=== PATIENT | female | born 1955 | race African-American/Black ===

== ENCOUNTER 2018-04-21 07:55 | Emergency (ER) | payer OTHER ==
[~2018-04-21] VITALS: Ht 157.5 cm; Wt 54.4 kg
[2018-04-21] MEDS ORDERED: IPRATROPIUM BROM 0.5 MG/2.5ML INH SOL NEB ONE (08:15)
[2018-04-21] MEDS ORDERED: methylPREDNISolone SOD SUCC 125 MG/2 ML VL IM ONE (08:15)
[2018-04-21] MEDS ORDERED: ALBUTEROL SULF 2.5 MG/0.5ML(0.5%) NEB SOLN NEB ONE (08:15)
[2018-04-21 08:35] LABS: Basophils # (auto) 0.1 uL; Basophils % (auto) 1.2 % (0.0-2.0); Eosinophils # (auto) 0.8 uL; Eosinophils % (auto) 14.5 % (0.0-7.0); Hemoglobin 14.5 g/dL (12.2-16.2); Lymphocytes # (auto) 1.6 uL; Lymphocytes % (auto) 29.8 % (10.0-50.0); Mean Corpuscular Hemoglobin 30.4 pg (28.0-32.0); Mean Corpuscular Hgb Conc. 32.9 g/dL (32.0-36.0); Mean Corpuscular Volume 92.4 fL (80.0-100.0); Monocytes # (auto) 0.6 uL; Monocytes % (auto) 11.2 % (0.0-12.0); Neutrophils # (auto) 2.3 uL; Neutrophils % (auto) 43.3 % (37.0-80.0); Platelet Count (auto) 309 10^3/uL (140-450); Red Blood Cells 4.76 10^6/uL (4.0-5.20); Red Cell Distribution Width 14.1 % (11.8-14.3); White Blood Cell 5.3 10^3/uL (4.4-10.8)
[2018-04-21 08:48] LABS: Albumin 3.3 g/dL (3.4-5.0); Anion Gap 8 (5-15); BUN/Creatinine Ratio 14.3; Blood Urea Nitrogen 11 mg/dL (7-18); Calcium 8.6 mg/dL (8.5-10.1); Carbon Dioxide 27 mmol/L (21-32); Chloride 109 mmol/L (98-107); GFR African American 97 mL/min; GFR Non-African American 80 mL/min; Glucose 89 mg/dL (74-106); Potassium 4.7 mmol/L (3.5-5.1); Sodium 144 mmol/L (136-145)
[2018-04-21 08:53] LABS: Alanine Aminotransferase 25 U/L (13-56); Alkaline Phosphatase 88 U/L (45-117); Aspartate Aminotransferase 20 U/L (15-37); Bilirubin, Total 0.1 mg/dL (0.2-1.0); Total Protein 7.5 g/dL (6.4-8.2)
[2018-04-21 10:06] LABS: Urine Bacteria NONE SEEN /hpf (None Seen); Urine Blood Negative /uL (Negative); Urine WBC <1 /hpf (0 - 5)
[2018-04-21 10:22] VITALS: BP 144/103
[2018-04-21] MEDS ORDERED: cefTRIAXone SOD 1,000 MG VL IM ONE (10:45)
[2018-04-21] MEDS ORDERED: cefTRIAXone W LIDOCAINE 1 GM IM IM ONE (11:00)
== END 2018-04-21 12:02 | disposition home or self-care (01) ==
LOC: ER 07:57
DX: J45.901 Unspecified asthma with (acute) exacerbation (principal); I10 Essential (primary) hypertension
CPT/HCPCS: 36415; 71045; 80053; 81001; 83880; 84484; 85025; 94640; 94761; 96372; 99285; J0696; J2930

== ENCOUNTER 2018-06-01 05:33 | Inpatient (IN) | payer OTHER ==
[~2018-06-01] VITALS: Ht 154.9 cm; Wt 55.5 kg
[2018-06-01] MEDS ORDERED: SODIUM CHLORIDE 0.9% 1,000 ML IV ONE (07:14)
[2018-06-01] MEDS ORDERED: LORazepam 0.5 MG TAB PO ONE (07:15)
[2018-06-01] MEDS ORDERED: ALBUTEROL SULF 2.5 MG/0.5ML(0.5%) NEB SOLN NEB ONE ×2 (07:15→12:30)
[2018-06-01] MEDS ORDERED: IPRATROPIUM BROM 0.5 MG/2.5ML INH SOL NEB ONE ×2 (07:15→12:30)
[2018-06-01 08:32] LABS: Basophils # (auto) 0.1 uL; Basophils % (auto) 1.1 % (0.0-2.0); Eosinophils # (auto) 0.6 uL; Eosinophils % (auto) 9.9 % (0.0-7.0); Hemoglobin 15.7 g/dL (12.2-16.2); Lymphocytes # (auto) 1.7 uL; Lymphocytes % (auto) 27.3 % (10.0-50.0); Mean Corpuscular Hemoglobin 30.1 pg (28.0-32.0); Mean Corpuscular Hgb Conc. 31.9 g/dL (32.0-36.0); Mean Corpuscular Volume 94.3 fL (80.0-100.0); Monocytes # (auto) 0.5 uL; Monocytes % (auto) 8.1 % (0.0-12.0); Neutrophils # (auto) 3.3 uL; Neutrophils % (auto) 53.6 % (37.0-80.0); Nucleated Red Blood Cells % 0.1 %; Platelet Count (auto) 266 10^3/uL (140-450); Red Cell Distribution Width 14.4 % (11.8-14.3); White Blood Cell 6.1 10^3/uL (4.4-10.8)
[2018-06-01 08:49] LABS: Albumin 3.6 g/dL (3.4-5.0); BUN/Creatinine Ratio 17.9; Bilirubin, Total 0.2 mg/dL (0.2-1.0); Calcium 8.4 mg/dL (8.5-10.1); Magnesium 2.5 mg/dL (1.6-2.6); Potassium 4.5 mmol/L (3.5-5.1); Total Protein 8.3 g/dL (6.4-8.2)
[2018-06-01] MEDS ORDERED: ACETAMINOPHEN 325 MG TAB PO ONE (12:30)
[2018-06-01] MEDS ORDERED: IBUPROFEN 600 MG TAB PO ONE (12:45)
[2018-06-01] MEDS ORDERED: ONDANSETRON HCL 4 MG/2 ML VIAL IV ONE (13:15)
[2018-06-01] MEDS ORDERED: ONDANSETRON ODT 4 MG TAB PO ONE (13:30)
[2018-06-01] MEDS ORDERED: NITROGLYCERIN 0.4 MG SL TAB SL PRN (14:00)
[2018-06-01] MEDS ORDERED: ACETAMINOPHEN 500 MG TAB PO PRN (14:00)
[2018-06-01] MEDS ORDERED: TEMAZEPAM 15 MG CAP PO PRN (14:00)
[2018-06-01] MEDS ORDERED: ALBUTEROL SULF 2.5 MG/0.5ML(0.5%) NEB SOLN NEB PRN (14:00)
[2018-06-01] MEDS ORDERED: MORPHINE SULF INJ 2 MG/ML SYRINGE 1ML IV PRN (14:00)
[2018-06-01] MEDS ORDERED: LACTULOSE 20Gm/30ML SOLN PO PRN (14:00)
[2018-06-01] MEDS: SODIUM CHLORIDE 0.9% 1,000 ML IV SCH (14:24)
[2018-06-01] MEDS: DOXYCYCLINE 100MG/250ML 250 ML IV SCH ×2 (14:32→21:42)
[2018-06-01] MEDS: PANTOPRAZOLE 40 MG TAB PO SCH (14:32)
[2018-06-01 16:18] VITALS: BP 107/77
[2018-06-01 16:35] VITALS: BP 107/77
[2018-06-01] MEDS: methylPREDNISolone SOD SUCC 40 MG/ML VL IV SCH ×2 (18:17→23:34)
[2018-06-01] MEDS: LORazepam 0.5 MG TAB PO PRN (18:18)
[2018-06-01] MEDS: ALBUTEROL SULF 2.5 MG/0.5ML(0.5%) NEB SOLN NEB SCH (18:43)
[2018-06-01] MEDS: IPRATROPIUM BROM 0.5 MG/2.5ML INH SOL NEB SCH (18:43)
[2018-06-01 20:00] VITALS: BP 109/70
[2018-06-01 22:00] VITALS: BP 109/70
[2018-06-01] MEDS: PROMETHAZINE HCL 25 MG/ML 1ML IV PRN (23:52)
[2018-06-02] VITALS (8 sets, daily range): BP systolic 104–115; BP diastolic 56–75
[2018-06-02] MEDS: LORazepam 0.5 MG TAB PO PRN ×3 (00:17→22:10)
[2018-06-02] MEDS: IPRATROPIUM BROM 0.5 MG/2.5ML INH SOL NEB SCH ×4 (00:19→18:25)
[2018-06-02] MEDS: ALBUTEROL SULF 2.5 MG/0.5ML(0.5%) NEB SOLN NEB SCH ×4 (00:19→18:25)
[2018-06-02] MEDS: SODIUM CHLORIDE 0.9% 1,000 ML IV SCH (05:07)
[2018-06-02] MEDS: methylPREDNISolone SOD SUCC 40 MG/ML VL IV SCH ×4 (06:50→21:58)
[2018-06-02] MEDS: DOXYCYCLINE 100MG/250ML 250 ML IV SCH ×2 (11:07→21:58)
[2018-06-02] MEDS: PANTOPRAZOLE 40 MG TAB PO SCH (11:07)
[2018-06-02] MEDS: ENOXAPARIN SOD 40 MG/0.4 ML SYRINGE SC SCH (11:08)
[2018-06-02] MEDS: HYDROcodone-ACET 5/325MG TAB PO PRN ×2 (11:47→20:10)
[2018-06-02] MEDS ORDERED: ALBUTEROL SULF 2.5 MG/0.5ML(0.5%) NEB SOLN NEB PRN (12:30)
[2018-06-02] MEDS ORDERED: SODIUM CHLORIDE 0.9% 1,000 ML IV SCH (12:30)
[2018-06-02] MEDS ORDERED: IPRATROPIUM BROM 0.5 MG/2.5ML INH SOL NEB PRN (12:30)
[2018-06-02] MEDS ORDERED: IBUPROFEN 400 MG TAB PO PRN (12:45)
[2018-06-02] MEDS: PROMETHAZINE HCL 25 MG/ML 1ML IV PRN ×2 (13:42→20:11)
[2018-06-03] VITALS (7 sets, daily range): BP systolic 115–137; BP diastolic 75–87
[2018-06-03] MEDS: IPRATROPIUM BROM 0.5 MG/2.5ML INH SOL NEB SCH ×4 (00:30→19:26)
[2018-06-03] MEDS: ALBUTEROL SULF 2.5 MG/0.5ML(0.5%) NEB SOLN NEB SCH ×4 (00:30→19:26)
[2018-06-03] MEDS: MORPHINE SULFATE 4 MG/ML SYR/VIAL IV PRN ×3 (00:39→08:50)
[2018-06-03] MEDS: methylPREDNISolone SOD SUCC 40 MG/ML VL IV SCH ×2 (05:38→23:13)
[2018-06-03 08:53] LABS: Basophils # (auto) 0.1 uL; Basophils % (auto) 0.8 % (0.0-2.0); Eosinophils # (auto) 0 uL; Eosinophils % (auto) 0.1 % (0.0-7.0); Hematocrit 47.1 % (36.0-46.0); Hemoglobin 14.7 g/dL (12.2-16.2); Lymphocytes # (auto) 0.5 uL; Lymphocytes % (auto) 5.9 % (10.0-50.0); Mean Corpuscular Hemoglobin 29.4 pg (28.0-32.0); Mean Corpuscular Hgb Conc. 31.3 g/dL (32.0-36.0); Mean Corpuscular Volume 94.1 fL (80.0-100.0); Monocytes # (auto) 0.1 uL; Monocytes % (auto) 1.5 % (0.0-12.0); Neutrophils # (auto) 7.8 uL; Neutrophils % (auto) 91.7 % (37.0-80.0); Platelet Count (auto) 287 10^3/uL (140-450); Red Cell Distribution Width 14.5 % (11.8-14.3); White Blood Cell 8.6 10^3/uL (4.4-10.8)
[2018-06-03 09:10] LABS: BUN/Creatinine Ratio 18.8; Calcium 9.5 mg/dL (8.5-10.1)
[2018-06-03] MEDS: PROMETHAZINE HCL 25 MG/ML 1ML IV PRN ×2 (10:06→21:16)
[2018-06-03] MEDS: HYDROcodone-ACET 5/325MG TAB PO PRN ×2 (10:08→21:18)
[2018-06-03] MEDS: PANTOPRAZOLE 40 MG TAB PO SCH (10:10)
[2018-06-03] MEDS: ENOXAPARIN SOD 40 MG/0.4 ML SYRINGE SC SCH (10:11)
[2018-06-03] MEDS: DOXYCYCLINE 100MG/250ML 250 ML IV SCH ×2 (10:13→23:13)
[2018-06-03] MEDS ORDERED: KETOROLAC TROMETH 30 MG/ML 1ML VIAL IV PRN (11:00)
[2018-06-03] MEDS: LORazepam 0.5 MG TAB PO PRN ×2 (12:01→21:19)
[2018-06-03] MEDS ORDERED: ESCI10TA PO (16:44)
[2018-06-03] MEDS: QUEtiapine FUMARATE 25 MG TAB PO SCH (23:13)
[2018-06-04] MEDS: ALBUTEROL SULF 2.5 MG/0.5ML(0.5%) NEB SOLN NEB SCH ×4 (00:45→19:31)
[2018-06-04] MEDS: IPRATROPIUM BROM 0.5 MG/2.5ML INH SOL NEB SCH ×4 (00:46→19:31)
[2018-06-04 05:16] VITALS: BP 122/74
[2018-06-04] MEDS: QUEtiapine FUMARATE 25 MG TAB PO SCH ×2 (06:46→21:03)
[2018-06-04] MEDS: LORazepam 0.5 MG TAB PO PRN ×3 (08:48→22:09)
[2018-06-04] MEDS: PROMETHAZINE HCL 25 MG/ML 1ML IV PRN ×3 (08:48→21:04)
[2018-06-04] MEDS: HYDROcodone-ACET 5/325MG TAB PO PRN ×3 (08:49→21:04)
[2018-06-04 09:00] VITALS: BP 133/78
[2018-06-04] MEDS: DOXYCYCLINE 100MG/250ML 250 ML IV SCH ×2 (10:38→21:03)
[2018-06-04] MEDS: methylPREDNISolone SOD SUCC 40 MG/ML VL IV SCH (10:38)
[2018-06-04] MEDS: PANTOPRAZOLE 40 MG TAB PO SCH (10:39)
[2018-06-04] MEDS: ENOXAPARIN SOD 40 MG/0.4 ML SYRINGE SC SCH (10:39)
[2018-06-04 13:00] VITALS: BP 133/89
[2018-06-04 17:17] VITALS: BP 127/88
[2018-06-04 21:42] VITALS: BP 127/87
[2018-06-05] MEDS: ALBUTEROL SULF 2.5 MG/0.5ML(0.5%) NEB SOLN NEB SCH ×5 (00:56→23:22)
[2018-06-05] MEDS: IPRATROPIUM BROM 0.5 MG/2.5ML INH SOL NEB SCH ×5 (00:57→23:22)
[2018-06-05] MEDS: PROMETHAZINE HCL 25 MG/ML 1ML IV PRN ×5 (03:04→23:54)
[2018-06-05] MEDS: HYDROcodone-ACET 5/325MG TAB PO PRN ×4 (03:04→23:53)
[2018-06-05] MEDS: LORazepam 0.5 MG TAB PO PRN ×3 (04:22→23:53)
[2018-06-05 04:36] VITALS: BP 127/87
[2018-06-05 05:09] VITALS: BP 127/79
[2018-06-05] MEDS: QUEtiapine FUMARATE 25 MG TAB PO SCH ×2 (06:01→21:20)
[2018-06-05 08:55] VITALS: BP 122/69
[2018-06-05] MEDS: methylPREDNISolone SOD SUCC 40 MG/ML VL IV SCH ×2 (09:16→10:06)
[2018-06-05] MEDS: ENOXAPARIN SOD 40 MG/0.4 ML SYRINGE SC SCH (09:16)
[2018-06-05] MEDS: DOXYCYCLINE 100MG/250ML 250 ML IV SCH ×2 (09:17→10:06)
[2018-06-05] MEDS: PANTOPRAZOLE 40 MG TAB PO SCH (09:17)
[2018-06-05 13:00] VITALS: BP 125/78
[2018-06-05 16:55] VITALS: BP 114/73
[2018-06-05 22:11] VITALS: BP 120/70
[2018-06-06 04:41] VITALS: BP 138/98
[2018-06-06 05:47] LABS: Basophils # (auto) 0 uL; Basophils % (auto) 0.6 % (0.0-2.0); Eosinophils # (auto) 0 uL; Eosinophils % (auto) 0.5 % (0.0-7.0); Hematocrit 40.3 % (36.0-46.0); Hemoglobin 13.1 g/dL (12.2-16.2); Lymphocytes # (auto) 2.2 uL; Lymphocytes % (auto) 28.3 % (10.0-50.0); Mean Corpuscular Hemoglobin 30.3 pg (28.0-32.0); Mean Corpuscular Hgb Conc. 32.6 g/dL (32.0-36.0); Monocytes # (auto) 0.7 uL; Monocytes % (auto) 8.7 % (0.0-12.0); Neutrophils # (auto) 4.9 uL; Neutrophils % (auto) 61.9 % (37.0-80.0); Nucleated Red Blood Cells % 0.2 %; Platelet Count (auto) 247 10^3/uL (140-450); Red Blood Cells 4.33 10^6/uL (4.0-5.20); Red Cell Distribution Width 13.8 % (11.8-14.3); White Blood Cell 7.8 10^3/uL (4.4-10.8)
[2018-06-06 06:06] LABS: BUN/Creatinine Ratio 25.9; Calcium 8.5 mg/dL (8.5-10.1); Potassium 3.8 mmol/L (3.5-5.1)
[2018-06-06] MEDS: QUEtiapine FUMARATE 25 MG TAB PO SCH (06:12)
[2018-06-06] MEDS: LORazepam 0.5 MG TAB PO PRN ×2 (06:12→12:19)
[2018-06-06] MEDS: HYDROcodone-ACET 5/325MG TAB PO PRN ×2 (06:13→12:19)
[2018-06-06] MEDS: PROMETHAZINE HCL 25 MG/ML 1ML IV PRN (06:13)
[2018-06-06] MEDS: ALBUTEROL SULF 2.5 MG/0.5ML(0.5%) NEB SOLN NEB SCH ×2 (06:31→12:36)
[2018-06-06] MEDS: IPRATROPIUM BROM 0.5 MG/2.5ML INH SOL NEB SCH ×2 (06:31→12:36)
[2018-06-06 07:50] VITALS: BP 123/84
[2018-06-06 09:00] VITALS: BP 123/84
[2018-06-06] MEDS: PANTOPRAZOLE 40 MG TAB PO SCH (09:44)
[2018-06-06] MEDS: ENOXAPARIN SOD 40 MG/0.4 ML SYRINGE SC SCH (09:44)
[2018-06-06] MEDS: methylPREDNISolone SOD SUCC 40 MG/ML VL IV SCH (09:44)
[2018-06-06] MEDS ORDERED: CITALOPRAM HYDROBR 20 MG TAB PO SCH (10:00)
[2018-06-06 13:00] VITALS: BP 125/91
[2018-06-06] MEDS ORDERED: LORA-655 PO (13:09)
[2018-06-06] MEDS ORDERED: METH4PAK PO (13:13)
[2018-06-06] MEDS ORDERED: QUET25TA46 PO ×2 (13:13)
[2018-06-06] MEDS ORDERED: ESCI10TA PO (13:13)
[2018-06-06] MEDS ORDERED: ALBUAER3 IN (13:13)
[2018-06-06] MEDS ORDERED: HYDR-4683 PO (13:13)
[2018-06-06] MEDS ORDERED: PRO625LQ PO (13:18)
[2018-06-06 16:30] VITALS: BP 117/74
[2018-06-06 17:00] VITALS: BP 117/74
== END 2018-06-06 17:25 | disposition home or self-care (01) | DRG 192 ==
LOC: EDUNIT# 05:33 → EDBD 05:33 → ER 05:39 → TELE 05:40 → TELE-WESTW 15:41
PROVIDERS: ADMIT Internal Medicine; ATTEND Internal Medicine
DX: J44.1 Chronic obstructive pulmonary disease with (acute) exacerbation (principal); F41.0 Panic disorder [episodic paroxysmal anxiety]; G89.4 Chronic pain syndrome; H40.9 Unspecified glaucoma; H54.8 Legal blindness, as defined in USA; I10 Essential (primary) hypertension; M12.811 Other specific arthropathies, not elsewhere classified, right shoulder; F32.9 Major depressive disorder, single episode, unspecified; Z87.891 Personal history of nicotine dependence; Z83.511 Family history of glaucoma
CPT/HCPCS: 36415; 71045; 71046; 73200; 80048; 80053; 80061; 82962; 83735; 84443; 85025; 85379; 85652; 93005; 93971; 94640; 96361; 96365; J1885; J2405; J3490; Q0162

== ENCOUNTER 2018-07-19 12:50 | Inpatient (IN) | payer OTHER ==
[~2018-07-19] VITALS: Ht 167.6 cm; Wt 59.2 kg
[~2018-07-19 12:50] MED LIST: ALBUAER3 IN; ESCI10TA PO; HYDR-4683 PO; LORA-655 PO; METH4PAK PO; PRO625LQ PO; QUET25TA46 PO
[2018-07-19] MEDS ORDERED: SODIUM CHLORIDE 0.9% 1,000 ML IVB ONE (15:33)
[2018-07-19] MEDS ORDERED: ASPirin 81 mg TAB PO ONE (15:45)
[2018-07-19] MEDS ORDERED: LORazepam 2MG/ML-1ML VIAL IV ONE ×2 (15:45→21:30)
[2018-07-19 15:59] LABS: Basophils # (auto) 0 uL; Basophils % (auto) 0.7 % (0.0-2.0); Eosinophils # (auto) 0.2 uL; Eosinophils % (auto) 3.5 % (0.0-7.0); Hematocrit 44.5 % (36.0-46.0); Hemoglobin 14.4 g/dL (12.2-16.2); Lymphocytes # (auto) 1.6 uL; Lymphocytes % (auto) 28.2 % (10.0-50.0); Mean Corpuscular Hemoglobin 29.4 pg (28.0-32.0); Mean Corpuscular Hgb Conc. 32.3 g/dL (32.0-36.0); Monocytes # (auto) 0.6 uL; Monocytes % (auto) 10.7 % (0.0-12.0); Neutrophils # (auto) 3.2 uL; Neutrophils % (auto) 56.9 % (37.0-80.0); Nucleated Red Blood Cells % 0.1 %; Platelet Count (auto) 237 10^3/uL (140-450); Red Blood Cells 4.89 10^6/uL (4.0-5.20); Red Cell Distribution Width 14.4 % (11.8-14.3); White Blood Cell 5.6 10^3/uL (4.4-10.8)
[2018-07-19 16:26] LABS: INR 0.97 (0.9-1.15); Partial Thromboplastin Time 26.1 sec (23.78-33.04); Prothrombin Time 10.4 sec (9.27-12.13)
[2018-07-19 16:28] LABS: Alanine Aminotransferase 21 U/L (13-56); Albumin 3.5 g/dL (3.4-5.0); Alkaline Phosphatase 103 U/L (45-117); Anion Gap 8 (5-15); Aspartate Aminotransferase 17 U/L (15-37); BUN/Creatinine Ratio 27.4; Bilirubin, Total 0.3 mg/dL (0.2-1.0); Blood Urea Nitrogen 17 mg/dL (7-18); Calcium 8.5 mg/dL (8.5-10.1); Carbon Dioxide 22 mmol/L (21-32); Chloride 112 mmol/L (98-107); GFR African American 124 mL/min; GFR Non-African American 103 mL/min; Glucose 80 mg/dL (74-106); Magnesium 2.4 mg/dL (1.6-2.6); Potassium 3.4 mmol/L (3.5-5.1); Sodium 142 mmol/L (136-145); Total Protein 7.7 g/dL (6.4-8.2)
[2018-07-19] MEDS ORDERED: METOPROLOL TARTRATE 50 MG TAB PO ONE (16:45)
[2018-07-19] MEDS ORDERED: ACETAMINOPHEN 500 MG TAB PO PRN (22:00)
[2018-07-19] MEDS ORDERED: DOCUSATE SOD 100 MG CAP PO PRN (22:00)
[2018-07-19] MEDS ORDERED: diphenhdrAMINE HCL 50 MG/1 ML VL IV PRN (22:00)
[2018-07-19] MEDS ORDERED: QUEtiapine FUMARATE 100 MG TAB PO ONE (22:00)
[2018-07-19] MEDS ORDERED: LORazepam 0.5 MG TAB PO PRN (22:00)
[2018-07-19] MEDS ORDERED: POTASSIUM CHL 20 Meq TABLET PO ONE (22:00)
[2018-07-19] MEDS ORDERED: ALBUTEROL SULF 2.5 MG/0.5ML(0.5%) NEB SOLN NEB PRN (23:15)
[2018-07-19 23:21] VITALS: BP 139/66
[2018-07-20 00:15] VITALS: BP 123/74
[2018-07-20 05:00] VITALS: BP 122/90
[2018-07-20 07:12] LABS: Basophils # (auto) 0 uL; Basophils % (auto) 1.1 % (0.0-2.0); Eosinophils # (auto) 0.5 uL; Eosinophils % (auto) 12.5 % (0.0-7.0); Hematocrit 40.6 % (36.0-46.0); Hemoglobin 13.7 g/dL (12.2-16.2); Lymphocytes # (auto) 1.4 uL; Mean Corpuscular Hemoglobin 30.9 pg (28.0-32.0); Mean Corpuscular Hgb Conc. 33.8 g/dL (32.0-36.0); Mean Corpuscular Volume 91.5 fL (80.0-100.0); Monocytes # (auto) 0.4 uL; Monocytes % (auto) 10.4 % (0.0-12.0); Neutrophils # (auto) 1.8 uL; Nucleated Red Blood Cells % 0.2 %; Platelet Count (auto) 204 10^3/uL (140-450); Red Blood Cells 4.44 10^6/uL (4.0-5.20); Red Cell Distribution Width 14.5 % (11.8-14.3); White Blood Cell 4.2 10^3/uL (4.4-10.8)
[2018-07-20 07:29] LABS: Calcium 8.1 mg/dL (8.5-10.1); Potassium 3.6 mmol/L (3.5-5.1)
[2018-07-20 08:51] VITALS: BP 120/76
[2018-07-20] MEDS ORDERED: QUEtiapine FUMARATE 25 MG TAB PO SCH ×3 (10:00→22:00)
[2018-07-20] MEDS: MULTIPLE VITAMIN TAB PO SCH (10:38)
[2018-07-20] MEDS ORDERED: AMLO5TAB13 PO (12:02)
[2018-07-20] MEDS ORDERED: LISI-646 PO (12:02)
[2018-07-20] MEDS ORDERED: QUET25TA37 PO (12:04)
[2018-07-20] MEDS ORDERED: HYDROcodone-ACET 5/325MG TAB PO PRN (12:45)
[2018-07-20 12:57] VITALS: BP 100/72
[2018-07-20] MEDS: LORazepam 0.5 MG TAB PO PRN (13:21)
[2018-07-20] MEDS ORDERED: ALBUTEROL SULF 2.5 MG/0.5ML(0.5%) NEB SOLN NEB PRN (13:30)
[2018-07-20] MEDS ORDERED: IPRATROPIUM BROM 0.5 MG/2.5ML INH SOL NEB PRN (13:30)
[2018-07-20 16:23] LABS: Alcohol, Urine < 3.0 mg/dL (0-5); Amphetamine Screen, Urine NEGATIVE (NEGATIVE); Barbiturate Scree,Urine NEGATIVE (NEGATIVE); Benzodiazephine Screen, Urine NEGATIVE (NEGATIVE); Cannabinoid Screen, Urine NEGATIVE (NEGATIVE); Cocaine Screen, Urine NEGATIVE (NEGATIVE); Opiate Scree,Urine NEGATIVE (NEGATIVE); Phencyclidine Screen, Urine NEGATIVE (NEGATIVE)
[2018-07-20 16:48] VITALS: BP 100/63
[2018-07-20] MEDS: ONDANSETRON HCL 4 MG/2 ML VIAL IV PRN (20:06)
[2018-07-20 22:00] VITALS: BP 114/71
[2018-07-21] MEDS: LORazepam 0.5 MG TAB PO PRN ×2 (01:37→09:53)
[2018-07-21 05:00] VITALS: BP 115/79
[2018-07-21] MEDS: ONDANSETRON HCL 4 MG/2 ML VIAL IV PRN (08:08)
[2018-07-21 09:00] VITALS: BP 120/86
[2018-07-21] MEDS: MULTIPLE VITAMIN TAB PO SCH (09:54)
[2018-07-21] MEDS ORDERED: LISINOPRIL 20 MG TAB PO SCH (10:00)
[2018-07-21] MEDS ORDERED: amLODIPine BESYLATE 5 MG TAB PO SCH (10:00)
[2018-07-21 11:42] VITALS: BP 120/86
[2018-07-21 13:00] VITALS: BP 115/79
== END 2018-07-21 14:00 | disposition home or self-care (01) | DRG 880 ==
LOC: ER 12:50 → EDBD 12:50 → TELE 12:51 → TELE-CENTR 23:34
PROVIDERS: ADMIT Nurse Practitioner Family; ATTEND Internal Medicine
DX: F41.0 Panic disorder [episodic paroxysmal anxiety] (principal); F32.9 Major depressive disorder, single episode, unspecified; E87.6 Hypokalemia; J44.9 Chronic obstructive pulmonary disease, unspecified; H54.8 Legal blindness, as defined in USA; I10 Essential (primary) hypertension; H40.9 Unspecified glaucoma; G89.29 Other chronic pain; F17.200 Nicotine dependence, unspecified, uncomplicated
CPT/HCPCS: 36415; 71045; 80048; 80053; 80307; 83735; 83880; 84443; 84484; 85025; 85610; 85730; 87081; 93005; 94761; 96361; 96374; 96375; J2405

== ENCOUNTER 2018-10-22 15:46 | Inpatient (IN) | payer MEDICARE, OTHER ==
[~2018-10-22] VITALS: Ht 152.4 cm; Wt 59.4 kg
[~2018-10-22 15:46] MED LIST changes: +AMLO5TAB13 PO; +LISI-646 PO; -METH4PAK PO; -PRO625LQ PO; +QUET25TA37 PO; -QUET25TA46 PO
[2018-10-22] MEDS ORDERED: IPRATROPIUM BROM 0.5 MG/2.5ML INH SOL NEB ONE (20:15)
[2018-10-22] MEDS ORDERED: ALBUTEROL SULF 2.5 MG/0.5ML(0.5%) NEB SOLN NEB ONE (20:15)
[2018-10-22] MEDS ORDERED: methylPREDNISolone SOD SUCC 125 MG/2 ML VL IV ONE (20:30)
[2018-10-22] MEDS ORDERED: cefTRIAXone 1GM/50ML D5W 50 ML IV ONE (20:45)
[2018-10-22 21:21] LABS: Basophils # (auto) 0 uL; Basophils % (auto) 0.6 % (0.0-2.0); Eosinophils # (auto) 0.4 uL; Eosinophils % (auto) 5.9 % (0.0-7.0); Hematocrit 47.6 % (36.0-46.0); Hemoglobin 15.5 g/dL (12.2-16.2); Lymphocytes # (auto) 2.6 uL; Lymphocytes % (auto) 39.9 % (10.0-50.0); Mean Corpuscular Hemoglobin 30.4 pg (28.0-32.0); Mean Corpuscular Hgb Conc. 32.7 g/dL (32.0-36.0); Mean Corpuscular Volume 92.9 fL (80.0-100.0); Monocytes # (auto) 0.7 uL; Monocytes % (auto) 10.8 % (0.0-12.0); Neutrophils # (auto) 2.7 uL; Neutrophils % (auto) 42.8 % (37.0-80.0); Nucleated Red Blood Cells % 0.2 %; Platelet Count (auto) 175 10^3/uL (140-450); Red Blood Cells 5.12 10^6/uL (4.0-5.20); Red Cell Distribution Width 14.5 % (11.8-14.3); White Blood Cell 6.4 10^3/uL (4.4-10.8)
[2018-10-22 21:42] LABS: Alanine Aminotransferase 14 U/L (13-56); Albumin 3.4 g/dL (3.4-5.0); Anion Gap 3 (5-15); Blood Urea Nitrogen 12 mg/dL (7-18); Calcium 8.1 mg/dL (8.5-10.1); Carbon Dioxide 28 mmol/L (21-32); Chloride 110 mmol/L (98-107); Glucose 96 mg/dL (74-106); Magnesium 2.4 mg/dL (1.6-2.6); Sodium 141 mmol/L (136-145)
[2018-10-22 21:47] LABS: Alkaline Phosphatase 88 U/L (45-117); Aspartate Aminotransferase 16 U/L (15-37); BUN/Creatinine Ratio 16.9; Bilirubin, Total 0.2 mg/dL (0.2-1.0); GFR African American 106 mL/min; GFR Non-African American 88 mL/min; Total Protein 7.5 g/dL (6.4-8.2)
[2018-10-22] MEDS: MAGNESIUM SULFATE 1GM/100ML 100 ML IV SCH ×2 (23:07→23:10)
[2018-10-22] MEDS ORDERED: ALBUTEROL SULF 2.5 MG/0.5ML(0.5%) NEB SOLN NEB PRN (23:15)
[2018-10-22] MEDS ORDERED: IPRATROPIUM BROM 0.5 MG/2.5ML INH SOL NEB PRN (23:15)
[2018-10-22] MEDS ORDERED: ACETAMINOPHEN 325 MG TAB PO PRN (23:15)
[2018-10-22 23:22] VITALS: BP 168/95
[2018-10-22 23:40] VITALS: BP 136/60
--- NOTE | 2018-10-22 23:40 | NUR ---
MS admit from ER KANDI VU admitted to tele/MS after SBAR received. Patient oriented to Leo coles RN, unit, room, bed, and unit policies regarding patient care and visiting hours. Patient weighed by bedscale and encouraged to call if they need something. All questions and concerns addressed, patient verbalized understanding.
[2018-10-23] MEDS: HYDROcodone-ACET 5/325MG TAB PO PRN ×5 (00:29→23:00)
[2018-10-23] MEDS: TEMAZEPAM 15 MG CAP PO PRN ×2 (01:00→23:31)
[2018-10-23 02:08] VITALS: BP 138/91
[2018-10-23 05:30] VITALS: BP 141/82
--- NOTE | 2018-10-23 07:30 | NUR ---
Opening Shift Note Assumed care of patient, awake and alert. No S/S of distress/SOB or pain; call light within reach, bed alarm on patient is legally blind. Instructed on POC and to call for assist PRN, will continue to monitor for changes Q1hr and PRN.
[2018-10-23 08:29] VITALS: BP 134/84
[2018-10-23] MEDS: amLODIPine BESYLATE 5 MG TAB PO SCH (09:04)
[2018-10-23] MEDS: LISINOPRIL 20 MG TAB PO SCH (09:05)
--- NOTE | 2018-10-23 09:18 | NUR ---
RT NOTE: WENT TO PTS ROOM TO ASSESS FOR PRN BREATHING TX. PT STATED THAT SHE DID NOT NEED A TX AT THIS TIME. PT AWARE TO CALL IF HAVING ANY SOB. HR 84, RR 18, SPO2 99% ON RA. WILL CONTINUE TO MONITOR PT.
--- NOTE | 2018-10-23 09:30 | NUR ---
RESTORIL INEFFECTIVE FOR A SLEEP AIDE PER PATIENT; PATIENT TAKES ATIVAN BID NEEDED AND AMBIEN FOR SLEEP.
[2018-10-23] MEDS ORDERED: FAMOTIDINE 20 MG TAB PO SCH (10:00)
--- NOTE | 2018-10-23 11:05 | NUR ---
AMBULATED PROVIDED MINIMAL ASSISTANCE WHILE PATIENT AMBULATED THE UNIT SEVERAL TIMES APPROXIMATELY 300 FEET; PATIENT TOLERATED WELL, DENIED DISCOMFORT OR PAIN; PATIENT REQUESTED A BREATHING TREATMENT. LEFT PATIENT IN BED WITH CALL LIGHT WITHIN REACH WILL CONTINUE TO MONITOR.
[2018-10-23 12:13] VITALS: BP 114/71
--- NOTE | 2018-10-23 16:16 | NUR ---
ASSISTED PATIENT TO THE BATHROOM PATIENT HAD A NORMAL MEDIUM BM WITHOUT DIFFICULTY.
[2018-10-23 16:32] VITALS: BP 142/91
--- NOTE | 2018-10-23 19:00 | NUR ---
Opening Shift Note Assumed care of patient, awake and alert. No S/S of distress/SOB or pain. Instructed on POC and to call for assist PRN, will continue to monitor for changes Q1hr and PRN.
[2018-10-23 22:00] VITALS: BP 122/76
[2018-10-23] MEDS ORDERED: QUEtiapine FUMARATE 25 MG TAB PO SCH (22:00)
[2018-10-23] MEDS: BUDESONIDE (INHALATION) 0.5 MG/2 ML NEB NEB SCH (22:00)
[2018-10-23] MEDS: ALBUTEROL SULF 2.5 MG/0.5ML(0.5%) NEB SOLN NEB SCH (22:22)
[2018-10-23] MEDS: IPRATROPIUM BROM 0.5 MG/2.5ML INH SOL NEB SCH (22:22)
[2018-10-23] MEDS: DOXYCYCLINE 100 MG TAB/CAP PO SCH (22:59)
[2018-10-23] MEDS: FAMOTIDINE 20 MG TAB PO SCH (23:00)
[2018-10-23] MEDS: predniSONE 20 MG TAB PO SCH (23:00)
[2018-10-24] MEDS: ONDANSETRON HCL 4 MG/2 ML VIAL IV PRN ×2 (04:38→10:12)
[2018-10-24] MEDS: HYDROcodone-ACET 5/325MG TAB PO PRN ×2 (04:38→09:55)
[2018-10-24 05:00] VITALS: BP 123/84
--- NOTE | 2018-10-24 06:01 | NUR ---
Per Pt She wants to continue with Ativan for anxiety. Will inform the day nurse
[2018-10-24] MEDS: BUDESONIDE (INHALATION) 0.5 MG/2 ML NEB NEB SCH (07:27)
[2018-10-24] MEDS: ALBUTEROL SULF 2.5 MG/0.5ML(0.5%) NEB SOLN NEB SCH (07:27)
[2018-10-24] MEDS: IPRATROPIUM BROM 0.5 MG/2.5ML INH SOL NEB SCH (07:27)
[2018-10-24 08:00] VITALS: BP 129/84
--- NOTE | 2018-10-24 09:30 | NUR ---
HOSPITALIST PAGED TO REVIEW AND REINSTATE PATIENTS HOME MEDICATIONS APPROPRIATE.
--- NOTE | 2018-10-24 09:45 | NUR ---
PRIMARY DOCTOR NOTIFIED ABDULKADIR GARCIA PATIENT REQUIRES ASSISTANCE OBTAINING A PRIMARY DOCTOR.
[2018-10-24] MEDS: DOXYCYCLINE 100 MG TAB/CAP PO SCH (09:54)
[2018-10-24] MEDS: amLODIPine BESYLATE 5 MG TAB PO SCH (09:55)
[2018-10-24] MEDS: predniSONE 20 MG TAB PO SCH (09:55)
[2018-10-24] MEDS: LISINOPRIL 20 MG TAB PO SCH (09:56)
[2018-10-24] MEDS: FAMOTIDINE 20 MG TAB PO SCH (10:00)
--- NOTE | 2018-10-24 10:48 | NUR ---
assessment Patient is a 63 year old female who is alert and oriented. Patients cognitive abilities are intact. Prior to admission patient lived home with family and functioned with assistance. Per patient she will return home to her prior living arrangements post discharge and family will transport her home. Patient informed me she has a paid caregiver. Patient informed me she has a white cane for home use. Patient is legally blind. I have provided patient with resource for [facility] caregiver. I informed patient she has a right to speak to a social welfare clerk regarding all care. I informed patient she has a right to participate in any and all discharge planning. Patient is aware of visiting hours on the hospital floor. I informed patient she has a right to privacy. Patient does not have a POA and advanced directive. I have offered patient information on POA and advanced directives. I informed the patient the advantages and benefits of having an Advanced Directive. Patient verbalized understanding and agreed to discharge plan home with family and caregiver. Addendum: 10/24/18 at 1048 by Keeley BOBO Amended: Links added.
[2018-10-24] MEDS ORDERED: LORazepam 0.5 MG TAB PO PRN (11:15)
--- NOTE | 2018-10-24 12:08 | NUR ---
NEW ORDER FOR ATIVAN PER DR Laura NULL.
[2018-10-24 12:16] VITALS: BP 159/89
--- NOTE | 2018-10-24 13:52 | NUR ---
re-assessment Per consult safety evaluation. Patient has been read a list of medicare providers. Per patient she has no preference on who provides service. MD order has been sent to [facility]. Per Shantell at [place] service will start within 48 hours of discharge. Call [phone] on discharge to let them know patient is discharged if after hours. Addendum: 10/24/18 at 1354 by Keeley Lamb Amended: Links added.
[2018-10-24 15:00] VITALS: BP 133/83
--- NOTE | 2018-10-24 17:18 | NUR ---
Discharge instructions given as ordered. Encourage to follow up with PMD as instructed; grace fermin provided resources for the patient to find a primary doctor;patient and daughter were educated to call and make an appointment with dr britt [phone] All questions and concerns addressed. Patient verbalized understanding. IV removed with catheter intact, pressure dressing applied Patient taken to vehicle via wheelchair with all personal belongings; daughter signed discharge paprework; accompanied by staff and family member. No distress noted at time of departure.
== END 2018-10-24 18:20 | disposition home or self-care (01) | DRG 191 ==
LOC: ER 15:46 → OVERFLOW 23:11 → EAST 23:40
PROVIDERS: ADMIT Nurse Practitioner; ATTEND Internal Medicine Pulmonary Disease
DX: J44.1 Chronic obstructive pulmonary disease with (acute) exacerbation (principal); J45.901 Unspecified asthma with (acute) exacerbation; F12.90 Cannabis use, unspecified, uncomplicated; F32.9 Major depressive disorder, single episode, unspecified; F17.210 Nicotine dependence, cigarettes, uncomplicated; I10 Essential (primary) hypertension; F41.9 Anxiety disorder, unspecified; M54.32 Sciatica, left side; Z82.5 Family history of asthma and other chronic lower respiratory diseases; Z91.19 Patient's noncompliance with other medical treatment and regimen; Z98.51 Tubal ligation status; Z83.3 Family history of diabetes mellitus; Z83.511 Family history of glaucoma; Z84.89 Family history of other specified conditions; Z80.0 Family history of malignant neoplasm of digestive organs; Z79.899 Other long term (current) drug therapy
CPT/HCPCS: 36415; 71046; 80053; 83735; 84484; 85025; 93005; 94640; 96365; 96375; G0378; J0696; J2405

== ENCOUNTER 2019-04-20 11:59 | Emergency (ER) | payer OTHER ==
[~2019-04-20] VITALS: Ht 154.9 cm; Wt 54.4 kg
[2019-04-20] MEDS ORDERED: LORazepam 2MG/ML-1ML VIAL IV ONE (12:30)
[2019-04-20 13:30] LABS: Basophils # (auto) 0.1 uL; Basophils % (auto) 1.1 % (0.0-2.0); Eosinophils # (auto) 0.1 uL; Eosinophils % (auto) 2.1 % (0.0-7.0); Hematocrit 44.7 % (36.0-46.0); Hemoglobin 14.7 g/dL (12.2-16.2); Lymphocytes # (auto) 1.5 uL; Lymphocytes % (auto) 29.1 % (10.0-50.0); Mean Corpuscular Hemoglobin 30.5 pg (28.0-32.0); Mean Corpuscular Hgb Conc. 32.9 g/dL (32.0-36.0); Mean Corpuscular Volume 92.8 fL (80.0-100.0); Monocytes # (auto) 0.5 uL; Monocytes % (auto) 9.2 % (0.0-12.0); Neutrophils # (auto) 3.1 uL; Neutrophils % (auto) 58.5 % (37.0-80.0); Nucleated Red Blood Cells % 0.1 %; Platelet Count (auto) 210 10^3/uL (140-450); Red Blood Cells 4.82 10^6/uL (4.0-5.20); Red Cell Distribution Width 14.9 % (11.8-14.3); White Blood Cell 5.2 10^3/uL (4.4-10.8)
[2019-04-20 13:48] LABS: Albumin 3.7 g/dL (3.4-5.0); Anion Gap 7 (5-15); Blood Urea Nitrogen 7 mg/dL (7-18); Calcium 9.2 mg/dL (8.5-10.1); Carbon Dioxide 24 mmol/L (21-32); Chloride 111 mmol/L (98-107); Glucose 87 mg/dL (74-106); Potassium 3.4 mmol/L (3.5-5.1); Sodium 142 mmol/L (136-145)
[2019-04-20 13:52] LABS: Alanine Aminotransferase 15 U/L (13-56); Alkaline Phosphatase 62 U/L (45-117); Aspartate Aminotransferase 16 U/L (15-37); BUN/Creatinine Ratio 11.5; Bilirubin, Total 0.3 mg/dL (0.2-1.0); GFR African American 127 mL/min; GFR Non-African American 105 mL/min; Total Protein 7.6 g/dL (6.4-8.2)
[2019-04-20 14:14] LABS: Alcohol, Urine < 3.0 mg/dL (0-5); Amphetamine Screen, Urine NEGATIVE (NEGATIVE); Barbiturate Scree,Urine NEGATIVE (NEGATIVE); Benzodiazephine Screen, Urine NEGATIVE (NEGATIVE); Cannabinoid Screen, Urine POSITIVE (NEGATIVE); Cocaine Screen, Urine NEGATIVE (NEGATIVE); Opiate Scree,Urine NEGATIVE (NEGATIVE); Phencyclidine Screen, Urine NEGATIVE (NEGATIVE)
[2019-04-20 15:00] VITALS: BP 115/67
--- NOTE | 2019-04-20 16:08 | NUR ---
Received referral to see pt. Pt is alert and oriented time 3. According to the nurse the pt is blind. However, pt lives in a hotel The pt states she has been there for 3 weeks. Her and her had a big fight and she left. Pt states she has panic attacks all the time. Pt does have an income of $1100.00. However, She states she likes where she is and does not want to move. She also has a service dog. Pt was given a resources list from [facility]. She stated she could have one of her neighbors help her out.
== END 2019-04-20 16:27 | disposition home or self-care (01) ==
LOC: ER 12:09
DX: F41.9 Anxiety disorder, unspecified (principal); R07.89 Other chest pain; R11.0 Nausea; F12.90 Cannabis use, unspecified, uncomplicated; J44.9 Chronic obstructive pulmonary disease, unspecified; I10 Essential (primary) hypertension; F32.9 Major depressive disorder, single episode, unspecified; F17.210 Nicotine dependence, cigarettes, uncomplicated; Z98.51 Tubal ligation status
CPT/HCPCS: 36415; 71045; 80053; 80307; 80320; 84484; 85025; 93005; 93971; 94761; 96374; 99284; J2060

== ENCOUNTER 2019-10-01 11:06 | Emergency (ER) | payer MEDICARE, OTHER ==
[~2019-10-01] VITALS: Ht 154.9 cm; Wt 51.7 kg
[~2019-10-01 11:06] MED LIST changes: -AMLO5TAB13 PO; +AMLO5TAB15 PO; -HYDR-4683 PO; +HYDR-4833 PO
[2019-10-01 16:27] VITALS: BP 139/85
== END 2019-10-01 16:39 | disposition home or self-care (01) ==
LOC: ER 11:17
DX: R51 Headache (principal); F41.9 Anxiety disorder, unspecified; R42 Dizziness and giddiness; F32.9 Major depressive disorder, single episode, unspecified; I10 Essential (primary) hypertension; J44.9 Chronic obstructive pulmonary disease, unspecified; F17.210 Nicotine dependence, cigarettes, uncomplicated; F12.10 Cannabis abuse, uncomplicated; Z98.51 Tubal ligation status
CPT/HCPCS: 70450; 93005

== ENCOUNTER 2019-11-20 17:31 | Inpatient (IN) | payer OTHER ==
[~2019-11-20] VITALS: Ht 154.9 cm; Wt 51.7 kg
[2019-11-20 18:54] LABS: Alanine Aminotransferase 22 U/L (13-56); Albumin 3.4 g/dL (3.4-5.0); Anion Gap 5 (5-15); Aspartate Aminotransferase 19 U/L (15-37); BUN/Creatinine Ratio 12.4; Blood Urea Nitrogen 11 mg/dL (7-18); Carbon Dioxide 27 mmol/L (21-32); Chloride 111 mmol/L (98-107); GFR African American 82 mL/min; GFR Non-African American 67 mL/min; Glucose 98 mg/dL (74-106); Potassium 3.4 mmol/L (3.5-5.1); Sodium 143 mmol/L (136-145)
[2019-11-20 18:59] LABS: Alkaline Phosphatase 87 U/L (45-117); Bilirubin, Total 0.2 mg/dL (0.2-1.0); Total Protein 7.9 g/dL (6.4-8.2)
[2019-11-20 19:27] LABS: Basophils # (auto) 0 uL; Basophils % (auto) 0.8 % (0.0-2.0); Eosinophils # (auto) 0.1 uL; Eosinophils % (auto) 1.5 % (0.0-7.0); Hematocrit 46.7 % (36.0-46.0); Hemoglobin 15.5 g/dL (12.2-16.2); Lymphocytes # (auto) 0.8 uL; Lymphocytes % (auto) 13.2 % (10.0-50.0); Mean Corpuscular Hemoglobin 30.7 pg (28.0-32.0); Mean Corpuscular Hgb Conc. 33.1 g/dL (32.0-36.0); Mean Corpuscular Volume 92.8 fL (80.0-100.0); Monocytes # (auto) 0.8 uL; Monocytes % (auto) 14.1 % (0.0-12.0); Neutrophils # (auto) 4.2 uL; Neutrophils % (auto) 70.4 % (37.0-80.0); Nucleated Red Blood Cells % 0.1 %; Platelet Count (auto) 283 10^3/uL (140-450); Red Blood Cells 5.03 10^6/uL (4.0-5.20); Red Cell Distribution Width 15.1 % (11.8-14.3)
[2019-11-20] MEDS ORDERED: ALBUTEROL SULF 2.5 MG/0.5ML(0.5%) NEB SOLN NEB ONE (21:30)
[2019-11-20] MEDS ORDERED: IPRATROPIUM BROM 0.5 MG/2.5ML INH SOL NEB ONE (21:30)
[2019-11-20] MEDS ORDERED: methylPREDNISolone SOD SUCC 125 MG/2 ML VL IV ONE (21:30)
[2019-11-20] MEDS ORDERED: cefTRIAXone 1GM/50ML D5W 50 ML IV ONE (21:30)
[2019-11-20] MEDS ORDERED: AZITHROMYCIN 500MG/ 250ML 250 ML IV ONE (21:30)
[2019-11-20] MEDS ORDERED: KETOROLAC TROMETH 60MG/2ML VIAL ONE (23:26)
[2019-11-20] MEDS ORDERED: KETOROLAC TROMETH 30 MG/ML 1ML VIAL IV ONE (23:30)
[2019-11-20] MEDS ORDERED: ONDANSETRON HCL 4 MG/2 ML VIAL IV ONE (23:30)
[2019-11-21] VITALS (7 sets, daily range): BP systolic 119–158; BP diastolic 75–97
[2019-11-21] MEDS ORDERED: IPRATROPIUM BROM 0.5 MG/2.5ML INH SOL NEB ONE (00:30)
[2019-11-21] MEDS ORDERED: ALBUTEROL SULF 2.5 MG/0.5ML(0.5%) NEB SOLN NEB ONE (00:30)
--- NOTE | 2019-11-21 01:25 | NUR ---
MS admit from ER KANDI VU admitted to tele/MS after SBAR received. Patient oriented to PHAM BORRERO RN primary RN, unit, room, bed, and unit policies regarding patient care and visiting hours. Patient weighed by bedscale and encouraged to call if they need something. All questions and concerns addressed, patient verbalized understanding. Note:
[2019-11-21] MEDS: IPRATROPIUM BROM 0.5 MG/2.5ML INH SOL NEB PRN ×2 (03:58→09:29)
[2019-11-21] MEDS: ALBUTEROL SULF 2.5 MG/0.5ML(0.5%) NEB SOLN NEB PRN ×3 (03:59→20:47)
[2019-11-21] MEDS: MORPHINE SULFATE 4 MG/ML SYR/VIAL IV PRN ×2 (04:04→09:14)
[2019-11-21 06:52] LABS: Basophils # (auto) 0 uL; Basophils % (auto) 0.3 % (0.0-2.0); Eosinophils # (auto) 0 uL; Hematocrit 42.4 % (36.0-46.0); Hemoglobin 14.2 g/dL (12.2-16.2); Lymphocytes # (auto) 0.4 uL; Lymphocytes % (auto) 9.7 % (10.0-50.0); Mean Corpuscular Hemoglobin 31.5 pg (28.0-32.0); Mean Corpuscular Hgb Conc. 33.5 g/dL (32.0-36.0); Mean Corpuscular Volume 93.8 fL (80.0-100.0); Monocytes # (auto) 0.1 uL; Monocytes % (auto) 1.8 % (0.0-12.0); Neutrophils # (auto) 3.9 uL; Neutrophils % (auto) 88.2 % (37.0-80.0); Platelet Count (auto) 255 10^3/uL (140-450); Red Blood Cells 4.52 10^6/uL (4.0-5.20); Red Cell Distribution Width 15.2 % (11.8-14.3); White Blood Cell 4.4 10^3/uL (4.4-10.8)
[2019-11-21 07:01] LABS: BUN/Creatinine Ratio 16.7; Calcium 9.2 mg/dL (8.5-10.1); Potassium 4.1 mmol/L (3.5-5.1)
[2019-11-21] MEDS: ENOXAPARIN SOD 40 MG/0.4 ML SYRINGE SC SCH (09:13)
[2019-11-21] MEDS ORDERED: AZITHROMYCIN 500MG/ 250ML 250 ML IV SCH (10:00)
[2019-11-21] MEDS ORDERED: methylPREDNISolone SOD SUCC 125 MG/2 ML VL IV SCH (10:00)
[2019-11-21] MEDS ORDERED: guaiFENesin-DM 100/10mg/5ml SYR PO PRN (13:00)
--- NOTE | 2019-11-21 13:30 | NUR ---
Hospitalist at bedside MD Mendez at bedside, spoke to patient extensively regarding POC including possible dc home tomorrow. Patient verbalized understanding and agrees to POC. Will cont care
[2019-11-21] MEDS: HYDROcodone-ACET 5/325MG TAB PO PRN (13:38)
[2019-11-21] MEDS: IPRATROPIUM BROM 0.5 MG/2.5ML INH SOL NEB SCH ×4 (14:29→22:00)
[2019-11-21] MEDS: ALBUTEROL SULF 2.5 MG/0.5ML(0.5%) NEB SOLN NEB SCH ×4 (14:30→22:00)
[2019-11-21] MEDS: DOXYCYCLINE 100MG/250ML 250 ML IV SCH (14:31)
[2019-11-21] MEDS: MORPHINE SULF INJ 2 MG/ML SYRINGE 1ML IV PRN (17:58)
--- NOTE | 2019-11-21 18:47 | NUR ---
Respiratory note: CPT NOT GIVEN WITH MED NEB TX AT THIS TIME. PT IS HAVING EXTREME ANXIETY AND CANNOT TOLERATE. WILL CONTINUE TO MONITOR.
--- NOTE | 2019-11-21 19:00 | NUR ---
Patient care endorsed endorsed care to Evert west. Patient states she's having anxiety attack. Patient received breathing treatment and R.T. recommending prn q2hr as well. MD Mendez paged to notify. VSS. Patient on 2L n/c. Call light within reach
--- NOTE | 2019-11-21 19:15 | NUR ---
Opening Shift Note Assumed care of patient, awake and alert. Patient is anxious and yelling out that she needs help. Able to calm the patient down. No S/S of distress/SOB. The patient c/o generalized body pain and request PRN pain medication. Instructed on POC and to call for assist PRN, will continue to monitor for changes Q1hr and PRN.
--- NOTE | 2019-11-21 19:35 | NUR ---
Dr. Valdez at nursing station. Notified Dr. Valdez about the patient's anxiety and wheezing. Received new orders for Xanax .25 mg Q8HR PRN and Albuterol 1.25 mg Q2HR.
[2019-11-21] MEDS ORDERED: cefTRIAXone 1GM/50ML D5W 50 ML IV SCH (22:00)
[2019-11-21] MEDS: QUEtiapine FUMARATE 25 MG TAB PO SCH (22:00)
[2019-11-22] MEDS: ALBUTEROL SULF 2.5 MG/0.5ML(0.5%) NEB SOLN NEB PRN (00:01)
[2019-11-22] MEDS: MORPHINE SULF INJ 2 MG/ML SYRINGE 1ML IV PRN ×2 (00:30→09:57)
[2019-11-22] MEDS: ONDANSETRON HCL 4 MG/2 ML VIAL IV PRN ×3 (00:30→22:17)
[2019-11-22] MEDS: methylPREDNISolone SOD SUCC 40 MG/ML VL IV SCH ×2 (00:34→09:57)
[2019-11-22] MEDS: ALPRAZolam 0.25 MG TAB PO PRN ×2 (01:57→08:51)
[2019-11-22] MEDS: DOXYCYCLINE 100MG/250ML 250 ML IV SCH ×2 (01:57→13:45)
[2019-11-22] MEDS: IPRATROPIUM BROM 0.5 MG/2.5ML INH SOL NEB SCH ×6 (02:24→22:30)
[2019-11-22] MEDS: ALBUTEROL SULF 2.5 MG/0.5ML(0.5%) NEB SOLN NEB SCH ×6 (02:24→22:30)
[2019-11-22] MEDS: HYDROcodone-ACET 5/325MG TAB PO PRN ×2 (03:00→08:51)
[2019-11-22 05:00] VITALS: BP 118/81
--- NOTE | 2019-11-22 06:05 | NUR ---
Respiratory note: PT REFUSED CPT AT THIS TIME.
--- NOTE | 2019-11-22 07:30 | NUR ---
OPENING SHIFT NOTE: Received report from NOC RNEvert. Assumed care of patient. Patient has been yelling out for help, appears very anxious and panicking. Patient constantly reassured. Bed in lowest position, rails x2 up and call light within reach. Updated on plan of care.
--- NOTE | 2019-11-22 08:30 | NUR ---
Patient moved from rm 215B to rm 203A to be closer to nurses' station due to blindness and panic attacks.
[2019-11-22 09:00] VITALS: BP 142/104
--- NOTE | 2019-11-22 09:50 | NUR ---
Respiratory note: PT HAS VERY HIGH ANXIETY AT THIS TIME. NO CPT DONE AT THIS TIME.
[2019-11-22] MEDS: ENOXAPARIN SOD 40 MG/0.4 ML SYRINGE SC SCH (09:57)
[2019-11-22] MEDS: amLODIPine BESYLATE 5 MG TAB PO SCH (09:58)
[2019-11-22] MEDS: LISINOPRIL 20 MG TAB PO SCH (09:58)
[2019-11-22] MEDS: CITALOPRAM HYDROBR 20 MG TAB PO SCH (09:59)
--- NOTE | 2019-11-22 10:00 | NUR ---
IV ACCESS: New IV started in right wrist #22 by LINDA Poe.
--- NOTE | 2019-11-22 12:59 | NUR ---
MD: Paged Dr Mandi Mendez regarding patient having a panic attack, yelling and pulling out IV. Unable to administer Xanax at this time. Patient's caregivers called to try and talk to her via phone and calm her down.
[2019-11-22 13:00] VITALS: BP 147/78
--- NOTE | 2019-11-22 13:11 | NUR ---
MD: Dr Mandi Mendez to see patient. Orders given.
--- NOTE | 2019-11-22 13:30 | NUR ---
TELE PSYCH: Machine at bedside.
--- NOTE | 2019-11-22 14:12 | NUR ---
RA O2 sats 77%. Patient placed back on 3L NC.
--- NOTE | 2019-11-22 16:55 | NUR ---
RECIEVED REPORT FROM LINDA MIRANDA. AWAITING FOR ROOM TO BE CLEANED
--- NOTE | 2019-11-22 16:55 | NUR ---
CONY MARTINEZ RE: PT CONTINUING TO PULL IV OUT. THIS RN REQUESTING TO CHANGE IV MEDICATION DOXYCYCLINE AND SOLU-MEDROL TO PO FORM AWAITING CALL BACK.
[2019-11-22 17:00] VITALS: BP 155/85
[2019-11-22] MEDS: ACETAMINOPHEN 325 MG TAB PO PRN (17:00)
--- NOTE | 2019-11-22 18:10 | NUR ---
PT TRANSFERRED TO 280-B NO S/S OF SOB AT THIS TIME. PT CURRENTLY COMPLANING OF EXTREME ANXIETY AND PAIN AT THIS TIME.
--- NOTE | 2019-11-22 18:16 | NUR ---
PT INSTRUCTED TO USE THE CALL LIGHT. FALL PRECAUTIONS IN PLACE. SIDERAILS UP X2, BED IN LOWEST POSITION AN LOCKED. CALL LIGHT WITHIN REACH .
--- NOTE | 2019-11-22 18:53 | NUR ---
MD Agnieszka MARTINEZ CALLED RE: PT TELE-PSYCH CONSULT. GAVE ORDER TO START PT ON ATIVAN 1MG PO Q8HRS PER PSYCHIATRIST ORDERS. ALSO STATED PT WILL MOST LIKELY BE READY TO BE DISCHARGED TOMORROW 11/23/2019
--- NOTE | 2019-11-22 18:55 | NUR ---
CAREGIVER UPDATED ON POC PASSWORD VERIFIED
--- NOTE | 2019-11-22 20:10 | NUR ---
Opening shift note Patient is sitting at edge of bed visibly anxious. Stating, "I want to leave now. I don't want to talk about it, I just want to go". Patient medicated with Ativan 1mg for anxiety as ordered. Patient laid down in bed and closed eyes. Patient is currently on 2L NC with noted expiratory wheezes. denies pain at this time. Reports nausea. Patient received from previous shift with no IV access; patient to be medicated for nausea once IV access is established. Patient educated on this, and verbalizes understanding. Patient is ambulatory with assist due to blindness. Bed is in low locked position with side rails up x2. Sitter is at bedside for safety. Bed is in low locked position with side rails up x2. Will continue to monitor for changes PRN.
[2019-11-22] MEDS: LORazepam 0.5 MG TAB PO PRN (20:21)
[2019-11-22] MEDS: QUEtiapine FUMARATE 25 MG TAB PO SCH (22:00)
[2019-11-22] MEDS: DOXYCYCLINE 100 MG TAB/CAP PO SCH (22:16)
--- NOTE | 2019-11-22 22:34 | NUR ---
MED NEB TX STOPPED EARLY DUE TO NAUSEA. CPT NOT ADMINISTERED AT THIS TIME. WILL CONTINUE WITH NEXT SCHEDULED TX IF TOLERATED.
--- NOTE | 2019-11-22 22:44 | NUR ---
Elevated BP BP is 154/111. Patient is resting with eyes closed. Denies headache or dizziness. Voicemail left for Dr. Agnieszka Mendez for further instruction. Awaiting call call back. Will continue care.
[2019-11-22] MEDS: hydrALAZINE HCL 20 MG/ML VL IV PRN (23:55)
--- NOTE | 2019-11-23 00:38 | NUR ---
Patient is anxious and yelling. States that none of her medications are working. Asking, "Please give me something to knock me out." Patient informed that no medications are due at this time. Instructed to take deep breaths and try to relax. Sitter is in room for safety. Will continue to monitor.
[2019-11-23] MEDS: ONDANSETRON HCL 4 MG/2 ML VIAL IV PRN ×3 (02:34→15:42)
[2019-11-23] MEDS: IPRATROPIUM BROM 0.5 MG/2.5ML INH SOL NEB SCH ×4 (02:36→15:04)
[2019-11-23] MEDS: ALBUTEROL SULF 2.5 MG/0.5ML(0.5%) NEB SOLN NEB SCH ×4 (02:36→15:04)
[2019-11-23 05:00] VITALS: BP 159/120
[2019-11-23] MEDS: hydrALAZINE HCL 20 MG/ML VL IV PRN ×2 (05:22→15:19)
[2019-11-23] MEDS: LORazepam 0.5 MG TAB PO PRN ×2 (05:22→15:41)
--- NOTE | 2019-11-23 05:26 | NUR ---
Elevated Blood pressure Blood pressure is 167/106. Medicated with Hydralazine 10mg IV as ordered. Will reassess.
[2019-11-23] MEDS: ACETAMINOPHEN 325 MG TAB PO PRN ×2 (06:22→15:37)
--- NOTE | 2019-11-23 07:30 | NUR ---
Opening Shift Note Assumed care of patient, asleep but easily aroused. No S/S of distress/SOB or pain. For safety patients bed is locked, in the lowest position, with 2 side rails up and the call light with in reach. There is a sitter at bedside to monitor for safety. Instructed on POC and to call for assist PRN, will continue to monitor for any changes in condition.
[2019-11-23 09:00] VITALS: BP 159/92
[2019-11-23] MEDS ORDERED: predniSONE 20 MG TAB PO SCH (10:00)
--- NOTE | 2019-11-23 10:00 | NUR ---
DAUGHTER PARISH HERE TO SEE HER MOM, HER CONTACT INFORMATION IS CELL PHONE, HOME PHONE, CELL PHONE #2.
[2019-11-23] MEDS: amLODIPine BESYLATE 5 MG TAB PO SCH (10:17)
[2019-11-23] MEDS: CITALOPRAM HYDROBR 20 MG TAB PO SCH (10:18)
[2019-11-23] MEDS: DOXYCYCLINE 100 MG TAB/CAP PO SCH (10:18)
[2019-11-23] MEDS: ENOXAPARIN SOD 40 MG/0.4 ML SYRINGE SC SCH (10:19)
[2019-11-23] MEDS: LISINOPRIL 20 MG TAB PO SCH (10:24)
[2019-11-23 12:58] VITALS: BP 158/94
--- NOTE | 2019-11-23 16:50 | NUR ---
DR. Mandi CESAR AT BEDSIDE WITH PATIENT TO DISCUSS PLAN OF CARE
[2019-11-23 17:00] VITALS: BP 137/85
[2019-11-23] MEDS ORDERED: DOX100T PO (17:10)
[2019-11-23] MEDS ORDERED: IPR002IS NEB (17:10)
[2019-11-23] MEDS ORDERED: ALB5IS NEB (17:10)
[2019-11-23] MEDS ORDERED: PRED20TA2 PO (17:10)
--- NOTE | 2019-11-23 18:45 | NUR ---
Discharge instructions given as ordered. Encourage to follow up with Primary care provider Dr. West as instructed. All questions and concerns addressed. Patient verbalized understanding. Medication reconciliation form completed and copy given to patient. IV removed with catheter intact, pressure dressing applied. Patient taken to vehicle via wheelchair with all personal belongings, accompanied by staff and friend Raquel. No distress noted at time of departure.
--- NOTE | 2019-11-27 11:19 | NUR ---
Faxed home health order to [facility], was told by Amara at [facility] that they could not accept this patient due to PCP being Dr. Cannon. I called [employer] [employer] and spoke with Leila, she said [facility] accepted patient and has already seen them.
== END 2019-11-23 18:45 | disposition home health service (06) | DRG 189 ==
LOC: ER 17:35 → OVERFLOW 17:36 → CENTRAL 11-21 01:10 → WEST WING 11-22 18:15
PROVIDERS: ADMIT Hospitalist; ATTEND Internal Medicine
DX: J96.01 Acute respiratory failure with hypoxia (principal); J44.1 Chronic obstructive pulmonary disease with (acute) exacerbation; J45.998 Other asthma; I10 Essential (primary) hypertension; E11.9 Type 2 diabetes mellitus without complications; F12.90 Cannabis use, unspecified, uncomplicated; F17.210 Nicotine dependence, cigarettes, uncomplicated; F32.9 Major depressive disorder, single episode, unspecified; F41.0 Panic disorder [episodic paroxysmal anxiety]; H40.9 Unspecified glaucoma; F43.22 Adjustment disorder with anxiety; H54.8 Legal blindness, as defined in USA; Z80.0 Family history of malignant neoplasm of digestive organs; Z82.5 Family history of asthma and other chronic lower respiratory diseases; Z83.3 Family history of diabetes mellitus; Z98.51 Tubal ligation status; Z71.6 Tobacco abuse counseling; Z79.899 Other long term (current) drug therapy
CPT/HCPCS: 36415; 71046; 80048; 80053; 84484; 85025; 87040; 94640; 94667; 94668; 96365; 96367; 96375; G0378; J0696; J1885; J2405; J3490

== ENCOUNTER 2020-05-02 11:22 | Emergency (ER) | payer OTHER ==
[~2020-05-02] VITALS: Ht 152.4 cm; Wt 54.4 kg
[~2020-05-02 11:22] MED LIST changes: +ALB5IS NEB; +DOX100T PO; +IPR002IS NEB; +PRED20TA2 PO
[2020-05-02 11:31] VITALS: BP 113/80
[2020-05-02] MEDS ORDERED: ONDANSETRON ODT 4 MG TAB PO ONE (17:30)
== END 2020-05-02 17:51 | disposition home or self-care (01) ==
LOC: ER 11:22
DX: F41.9 Anxiety disorder, unspecified (principal); J02.9 Acute pharyngitis, unspecified; J44.9 Chronic obstructive pulmonary disease, unspecified; I10 Essential (primary) hypertension; F17.210 Nicotine dependence, cigarettes, uncomplicated; Z98.51 Tubal ligation status
CPT/HCPCS: 71045; 87070; 87804; 87880; 99284; Q0162

== ENCOUNTER 2020-12-28 04:10 | Emergency (ER) | payer OTHER ==
[~2020-12-28] VITALS: Ht 162.6 cm; Wt 49.9 kg
[~2020-12-28 04:10] MED LIST changes: +AMLO-489 PO; -AMLO5TAB15 PO
[2020-12-28] MEDS ORDERED: SODIUM CHLORIDE 0.9% 1,000 ML IV ONE (07:15)
[2020-12-28 07:20] LABS: Basophils # (auto) 0 10 ^3/uL (0-0.2); Basophils % (auto) 0.8 % (0.0-2.0); Eosinophils # (auto) 0.1 10 ^3/uL (0-0.8); Eosinophils % (auto) 1.9 % (0.0-7.0); Hematocrit 42.5 % (36.0-46.0); Hemoglobin 13.8 g/dL (12.2-16.2); Lymphocytes # (auto) 0.9 10 ^3/uL (0.4-5.4); Lymphocytes % (auto) 21.2 % (10.0-50.0); Mean Corpuscular Hemoglobin 31.4 pg (28.0-32.0); Mean Corpuscular Hgb Conc. 32.5 g/dL (32.0-36.0); Mean Corpuscular Volume 96.6 fL (80.0-100.0); Monocytes # (auto) 0.4 10 ^3/uL (0-1.3); Monocytes % (auto) 9.7 % (0.0-12.0); Neutrophils # (auto) 2.9 10 ^3/uL (1.6-8.6); Neutrophils % (auto) 66.4 % (37.0-80.0); Nucleated Red Blood Cells % 0.1 %; Platelet Count (auto) 215 10^3/uL (140-450); Red Cell Distribution Width 15.9 % (11.8-14.3); White Blood Cell 4.4 10^3/uL (4.4-10.8)
[2020-12-28] MEDS ORDERED: LORazepam 0.5 MG TAB PO ONE (07:45)
[2020-12-28 07:48] LABS: Chloride 115 mmol/L (98-107); Potassium 3.4 mmol/L (3.5-5.1); Sodium 142 mmol/L (136-145)
[2020-12-28 07:50] LABS: INR 1.03 (0.9-1.15); Partial Thromboplastin Time 26.7 sec (23.0-31.2)
[2020-12-28 07:59] LABS: Alanine Aminotransferase 15 U/L (13-56); Albumin 3.2 g/dL (3.4-5.0); Alkaline Phosphatase 65 U/L (45-117); Anion Gap 5 (5-15); Aspartate Aminotransferase 16 U/L (15-37); Bilirubin, Total 0.2 mg/dL (0.2-1.0); Blood Urea Nitrogen 9 mg/dL (7-18); Calcium 8.4 mg/dL (8.5-10.1); Carbon Dioxide 22 mmol/L (21-32); GFR African American 99 mL/min; GFR Non-African American 82 mL/min; Glucose 118 mg/dL (74-106); Total Protein 7.1 g/dL (6.4-8.2)
[2020-12-28] MEDS ORDERED: ACETAMINOPHEN 500 MG TAB PO ONE (08:30)
[2020-12-28] MEDS ORDERED: IOPAMIDOL 76 % (ISOVUE-370) 100ML BTL IV ONE (09:00)
[2020-12-28 12:22] LABS: Urine Bacteria NONE SEEN /hpf (None Seen); Urine Blood Negative /uL (Negative); Urine Specific Gravity 1.035 (1.001-1.035); Urine WBC <1 /hpf (0 - 5)
[2020-12-28 13:40] VITALS: BP 117/65
== END 2020-12-28 13:58 | disposition home or self-care (01) ==
LOC: EDBD 04:10 → ER 04:10
DX: F32.9 Major depressive disorder, single episode, unspecified (principal); F41.9 Anxiety disorder, unspecified; E87.6 Hypokalemia; H54.7 Unspecified visual loss; F12.10 Cannabis abuse, uncomplicated; J44.9 Chronic obstructive pulmonary disease, unspecified; E44.1 Mild protein-calorie malnutrition; Z68.1 Body mass index [BMI] 19.9 or less, adult; Z20.822 Contact with and (suspected) exposure to COVID-19; Z87.891 Personal history of nicotine dependence; Z98.51 Tubal ligation status
CPT/HCPCS: 36415; 71045; 71275; 80053; 81001; 83735; 83880; 84484; 85025; 85379; 85610; 85730; 87426; 93005; 96360; 96361; 99285; C9803; J7030; Q9967; U0003

== ENCOUNTER 2021-01-19 19:56 | Inpatient (IN) | payer OTHER ==
[~2021-01-19] VITALS: Ht 157.5 cm; Wt 54.4 kg
[2021-01-19 22:38] LABS: Basophils # (auto) 0 10 ^3/uL (0-0.2); Basophils % (auto) 0.7 % (0.0-2.0); Eosinophils # (auto) 0 10 ^3/uL (0-0.8); Eosinophils % (auto) 0.6 % (0.0-7.0); Hemoglobin 16.4 g/dL (12.2-16.2); Lymphocytes # (auto) 1.2 10 ^3/uL (0.4-5.4); Lymphocytes % (auto) 19.9 % (10.0-50.0); Mean Corpuscular Hgb Conc. 33.5 g/dL (32.0-36.0); Mean Corpuscular Volume 92.7 fL (80.0-100.0); Monocytes # (auto) 0.5 10 ^3/uL (0-1.3); Monocytes % (auto) 9.1 % (0.0-12.0); Neutrophils # (auto) 4.1 10 ^3/uL (1.6-8.6); Neutrophils % (auto) 69.7 % (37.0-80.0); Nucleated Red Blood Cells % 0.2 %; Platelet Count (auto) 255 10^3/uL (140-450); Red Blood Cells 5.29 10^6/uL (4.0-5.20); Red Cell Distribution Width 14.8 % (11.8-14.3); White Blood Cell 5.9 10^3/uL (4.4-10.8)
[2021-01-19 22:49] LABS: Chloride 113 mmol/L (98-107); Potassium 3.3 mmol/L (3.5-5.1); Sodium 140 mmol/L (136-145)
[2021-01-19 22:50] LABS: INR 1.15 (0.9-1.15); Partial Thromboplastin Time 27.2 sec (23.0-31.2)
[2021-01-19 22:51] LABS: Acetaminophen < 2.0 ug/mL (10-30)
[2021-01-19 22:53] LABS: Alanine Aminotransferase 16 U/L (13-56); Anion Gap 9 (5-15); Aspartate Aminotransferase 21 U/L (15-37); BUN/Creatinine Ratio 21.8; Blood Alcohol < 3.0 mg/dL (0-5); Blood Urea Nitrogen 22 mg/dL (7-18); Calcium 8.9 mg/dL (8.5-10.1); Carbon Dioxide 18 mmol/L (21-32); GFR African American 70 mL/min; GFR Non-African American 58 mL/min; Glucose 125 mg/dL (74-106); Magnesium 2.5 mg/dL (1.6-2.6)
[2021-01-19 22:54] LABS: Salicylate 51.7 mg/dL (2.8-20.0)
[2021-01-19 22:58] LABS: Alkaline Phosphatase 79 U/L (45-117); Bilirubin, Total 0.3 mg/dL (0.2-1.0); Total Protein 8.2 g/dL (6.4-8.2)
[2021-01-20] MEDS ORDERED: ACETYLCYSTEINE ORAL for CIN 20%(200MG/ML) 4ML PO ONE (08:15)
[2021-01-20] MEDS ORDERED: SODIUM CHLORIDE 0.9% 1,000 ML IV ONE ×2 (08:15)
[2021-01-20] MEDS ORDERED: SODIUM BICARBONATE 8.4 % INJ 50ML VIAL IV ONE (08:15)
[2021-01-20] MEDS ORDERED: ONDANSETRON HCL 4 MG/2 ML VIAL IV ONE (08:15)
[2021-01-20] MEDS ORDERED: POTASSIUM EFFERVESENT TAB 25 MEQ PO ONE (09:00)
[2021-01-20] MEDS ORDERED: SODIUM BICARBONATE 50ML VIAL 50 ML, POTASSIUM CHLORIDE 20 MEQ in SOD CHL 0.45% 1,000 ML IV ONE (09:00)
[2021-01-20 10:06] LABS: Basophils # (auto) 0 10 ^3/uL (0-0.2); Basophils % (auto) 0.5 % (0.0-2.0); Eosinophils # (auto) 0 10 ^3/uL (0-0.8); Hematocrit 48.4 % (36.0-46.0); Hemoglobin 16.1 g/dL (12.2-16.2); Lymphocytes # (auto) 0.9 10 ^3/uL (0.4-5.4); Mean Corpuscular Hemoglobin 31.6 pg (28.0-32.0); Mean Corpuscular Hgb Conc. 33.2 g/dL (32.0-36.0); Mean Corpuscular Volume 95.3 fL (80.0-100.0); Monocytes # (auto) 0.3 10 ^3/uL (0-1.3); Monocytes % (auto) 6.2 % (0.0-12.0); Neutrophils # (auto) 4.2 10 ^3/uL (1.6-8.6); Neutrophils % (auto) 77.3 % (37.0-80.0); Nucleated Red Blood Cells % 0.2 %; Platelet Count (auto) 215 10^3/uL (140-450); Red Blood Cells 5.08 10^6/uL (4.0-5.20); Red Cell Distribution Width 15.2 % (11.8-14.3); White Blood Cell 5.4 10^3/uL (4.4-10.8)
[2021-01-20 10:38] LABS: Potassium 3.4 mmol/L (3.5-5.1)
[2021-01-20 10:43] LABS: Albumin 3.7 g/dL (3.4-5.0); BUN/Creatinine Ratio 29.4; Bilirubin, Total 0.2 mg/dL (0.2-1.0); Calcium 8.7 mg/dL (8.5-10.1); Total Protein 7.8 g/dL (6.4-8.2)
[2021-01-20] MEDS: MORPHINE SULF INJ 2 MG/ML SYRINGE 1ML IV PRN ×2 (13:23→21:55)
[2021-01-20 16:53] LABS: Albumin 3.3 g/dL (3.4-5.0); BUN/Creatinine Ratio 28.3; Potassium 3.6 mmol/L (3.5-5.1)
[2021-01-20 16:56] LABS: Bilirubin, Total 0.2 mg/dL (0.2-1.0); Total Protein 6.9 g/dL (6.4-8.2)
[2021-01-20] MEDS: SODIUM CHLORIDE 0.9% 1,000 ML IV SCH (18:21)
[2021-01-20] MEDS: ONDANSETRON HCL 4 MG/2 ML VIAL IV PRN (18:43)
[2021-01-20 22:47] LABS: Urine Bacteria FEW /hpf (None Seen); Urine Blood Negative /uL (Negative); Urine Mucus FEW (None Seen); Urine Specific Gravity 1.023 (1.001-1.035); Urine WBC 4 /hpf (0 - 5)
[2021-01-20 22:49] LABS: Alcohol, Urine < 3.0 mg/dL (0-10); Amphetamine Screen, Urine NEGATIVE (NEGATIVE); Barbiturate Scree,Urine NEGATIVE (NEGATIVE); Benzodiazephine Screen, Urine NEGATIVE (NEGATIVE); Cannabinoid Screen, Urine POSITIVE (NEGATIVE); Cocaine Screen, Urine NEGATIVE (NEGATIVE); Phencyclidine Screen, Urine NEGATIVE (NEGATIVE)
[2021-01-20 22:56] LABS: Opiate Scree,Urine POSITIVE (NEGATIVE)
[2021-01-20 23:50] LABS: Albumin 3.1 g/dL (3.4-5.0); BUN/Creatinine Ratio 26.2; Calcium 8.3 mg/dL (8.5-10.1); Potassium 3.6 mmol/L (3.5-5.1)
[2021-01-20 23:53] LABS: Bilirubin, Total 0.3 mg/dL (0.2-1.0); Total Protein 6.2 g/dL (6.4-8.2)
[2021-01-21] MEDS: ONDANSETRON HCL 4 MG/2 ML VIAL IV PRN ×2 (00:09→11:03)
[2021-01-21] MEDS: SODIUM CHLORIDE 0.9% 1,000 ML IV SCH (04:22)
[2021-01-21 07:34] LABS: Basophils # (auto) 0 10 ^3/uL (0-0.2); Basophils % (auto) 0.5 % (0.0-2.0); Eosinophils # (auto) 0 10 ^3/uL (0-0.8); Eosinophils % (auto) 0.2 % (0.0-7.0); Hematocrit 40.7 % (36.0-46.0); Hemoglobin 13.4 g/dL (12.2-16.2); Lymphocytes # (auto) 1.6 10 ^3/uL (0.4-5.4); Lymphocytes % (auto) 30.8 % (10.0-50.0); Mean Corpuscular Hemoglobin 30.8 pg (28.0-32.0); Mean Corpuscular Volume 93.3 fL (80.0-100.0); Monocytes # (auto) 0.5 10 ^3/uL (0-1.3); Monocytes % (auto) 9.9 % (0.0-12.0); Neutrophils % (auto) 58.6 % (37.0-80.0); Nucleated Red Blood Cells % 0.1 %; Platelet Count (auto) 205 10^3/uL (140-450); Red Blood Cells 4.36 10^6/uL (4.0-5.20); Red Cell Distribution Width 14.7 % (11.8-14.3)
[2021-01-21 08:01] LABS: Albumin 3.2 g/dL (3.4-5.0); Calcium 8.3 mg/dL (8.5-10.1); Potassium 3.4 mmol/L (3.5-5.1)
[2021-01-21 08:05] LABS: BUN/Creatinine Ratio 20.4; Bilirubin, Total 0.3 mg/dL (0.2-1.0); Total Protein 6.4 g/dL (6.4-8.2)
[2021-01-21] MEDS ORDERED: ONDANSETRON HCL 4 MG/2 ML VIAL ONE (08:24)
[2021-01-21] MEDS ORDERED: PANTOPRAZOLE 40 MG/10 ML VIAL INJ IV SCH (10:00)
[2021-01-21] MEDS: MORPHINE SULF INJ 2 MG/ML SYRINGE 1ML IV PRN (11:02)
[2021-01-21] MEDS ORDERED: SOD CHL 0.45% 1,000 ML IV SCH (11:15)
[2021-01-21] MEDS ORDERED: POTASSIUM CHLORIDE 20 MEQ in D5W 5% 1,000 ML IV SCH (13:00)
[2021-01-21] MEDS ORDERED: POTASSIUM EFFERVESENT TAB 25 MEQ PO ONE (13:00)
[2021-01-21] MEDS ORDERED: LORazepam 2MG/ML-1ML VIAL IV ONE (14:30)
[2021-01-21] MEDS ORDERED: ESCI10TA PO (16:44)
[2021-01-21] MEDS ORDERED: MIRT-68 PO (16:45)
[2021-01-21 18:21] VITALS: BP 139/70
[2021-01-21] MEDS ORDERED: MIRTAZAPINE 30 MG TAB PO SCH (22:00)
[2021-01-22] MEDS ORDERED: CITALOPRAM HYDROBR 20 MG TAB PO SCH (10:00)
== END 2021-01-21 18:38 | disposition home health service (06) | DRG 917 ==
LOC: EDBD 19:56 → ER 20:06 → TELE 01-20 09:43
PROVIDERS: ADMIT Internal Medicine; ATTEND Internal Medicine
PROC: 05HB33Z Insertion of Infusion Device into Right Basilic Vein, Percutaneous Approach (ICD-10-PCS; principal; 2021-01-21)
PROC: B54MZZA Ultrasonography of Right Upper Extremity Veins, Guidance (ICD-10-PCS; 2021-01-21)
DX: T39.011A Poisoning by aspirin, accidental (unintentional), initial encounter (principal); G93.41 Metabolic encephalopathy; N17.9 Acute kidney failure, unspecified; N39.0 Urinary tract infection, site not specified; F33.1 Major depressive disorder, recurrent, moderate; E87.0 Hyperosmolality and hypernatremia; E87.4 Mixed disorder of acid-base balance; E86.0 Dehydration; Z20.822 Contact with and (suspected) exposure to COVID-19; F41.9 Anxiety disorder, unspecified; E86.9 Volume depletion, unspecified; E87.6 Hypokalemia; E11.9 Type 2 diabetes mellitus without complications; G47.9 Sleep disorder, unspecified; F41.8 Other specified anxiety disorders; I10 Essential (primary) hypertension; R44.1 Visual hallucinations; J44.9 Chronic obstructive pulmonary disease, unspecified; G47.00 Insomnia, unspecified; H40.9 Unspecified glaucoma; H81.8X3 Other disorders of vestibular function, bilateral; Y92.89 Other specified places as the place of occurrence of the external cause; Z80.0 Family history of malignant neoplasm of digestive organs; Z82.5 Family history of asthma and other chronic lower respiratory diseases; Z83.3 Family history of diabetes mellitus; Z87.891 Personal history of nicotine dependence
CPT/HCPCS: 36415; 36600; 70450; 70551; 71045; 76705; 80053; 80307; 80320; 80329; 81001; 82805; 82962; 83735; 84484; 85025; 85610; 85730; 87426; 96374; C9113; G0378; J2405

== ENCOUNTER 2021-09-11 22:18 | Inpatient (IN) | payer OTHER ==
[~2021-09-11] VITALS: Ht 152.4 cm; Wt 97.0 kg
[~2021-09-11 22:18] MED LIST changes: -LISI-646 PO; +LISI20TA28 PO; +MIRT-68 PO
[2021-09-11] MEDS ORDERED: LORazepam 2MG/ML-1ML VIAL IV ONE (23:30)
[2021-09-11 23:46] LABS: Basophils # (auto) 0 10 ^3/uL (0-0.2); Basophils % (auto) 0.5 % (0.0-2.0); Eosinophils # (auto) 0.2 10 ^3/uL (0-0.8); Eosinophils % (auto) 3.1 % (0.0-7.0); Hematocrit 50.5 % (36.0-46.0); Hemoglobin 16.4 g/dL (12.2-16.2); Lymphocytes # (auto) 1.3 10 ^3/uL (0.4-5.4); Lymphocytes % (auto) 25.1 % (10.0-50.0); Mean Corpuscular Hgb Conc. 32.5 g/dL (32.0-36.0); Mean Corpuscular Volume 95.2 fL (80.0-100.0); Monocytes # (auto) 0.5 10 ^3/uL (0-1.3); Monocytes % (auto) 10.2 % (0.0-12.0); Neutrophils # (auto) 3.3 10 ^3/uL (1.6-8.6); Neutrophils % (auto) 61.1 % (37.0-80.0); Nucleated Red Blood Cells % 0.1 %; Red Cell Distribution Width 14.5 % (11.8-14.3); White Blood Cell 5.4 10^3/uL (4.4-10.8)
[2021-09-12 00:21] LABS: Albumin 3.7 g/dL (3.4-5.0); Calcium 9.1 mg/dL (8.5-10.1)
[2021-09-12 00:24] LABS: BUN/Creatinine Ratio 12.1
[2021-09-12 00:29] LABS: Bilirubin, Total 0.3 mg/dL (0.2-1.0); Total Protein 8.6 g/dL (6.4-8.2)
[2021-09-12] MEDS ORDERED: methylPREDNISolone SOD SUCC 125 MG/2 ML VL ONE (01:42)
[2021-09-12] MEDS ORDERED: methylPREDNISolone SOD SUCC 125 MG/2 ML VL IV ONE (01:45)
[2021-09-12] MEDS ORDERED: IPRATROPIUM BROM 0.5 MG/2.5ML INH SOL NEB ONE (01:45)
[2021-09-12] MEDS ORDERED: ALBUTEROL SULF 2.5 MG/0.5ML(0.5%) NEB SOLN NEB ONE (01:45)
[2021-09-12] MEDS ORDERED: ACETAMINOPHEN 325 MG TAB PO ONE (02:00)
[2021-09-12] MEDS ORDERED: ONDANSETRON HCL 4 MG/2 ML VIAL IV ONE (02:15)
[2021-09-12] MEDS ORDERED: diazePAM 5 MG TAB PO ONE (02:15)
[2021-09-12] MEDS ORDERED: MORPHINE SULFATE INJECTION 2 MG/ML SYRG IV PRN (07:45)
[2021-09-12] MEDS ORDERED: NITROGLYCERIN 0.4 MG SL TAB SL PRN (07:45)
[2021-09-12 10:25] VITALS: BP 110/82
[2021-09-12] MEDS: cefTRIAXone 1GM/50ML D5W 50 ML IV SCH (10:57)
[2021-09-12] MEDS ORDERED: LORazepam 2MG/ML-1ML VIAL IV PRN ×2 (12:45→15:00)
[2021-09-12] MEDS: methylPREDNISolone SOD SUCC 40 MG/ML VL IV SCH ×3 (15:19→21:30)
[2021-09-12] MEDS ORDERED: amLODIPine BESYLATE 5 MG TAB PO ONE (15:30)
[2021-09-12] MEDS ORDERED: CITALOPRAM HYDROBR 20 MG TAB PO ONE (15:30)
[2021-09-12] MEDS ORDERED: LISINOPRIL 20 MG TAB PO ONE (15:30)
[2021-09-12 17:02] VITALS: BP 104/70
[2021-09-12] MEDS: QUEtiapine FUMARATE 25 MG TAB PO SCH (18:00)
[2021-09-12] MEDS: IPRATROPIUM BROM 0.5 MG/2.5ML INH SOL NEB SCH ×3 (18:22→22:54)
[2021-09-12] MEDS: ALBUTEROL SULF 2.5 MG/0.5ML(0.5%) NEB SOLN NEB SCH ×3 (18:23→22:54)
[2021-09-12 22:00] VITALS: BP 99/60
[2021-09-12] MEDS: MIRTAZAPINE 30 MG TAB PO SCH (22:06)
[2021-09-12] MEDS: LORazepam 0.5 MG TAB PO SCH (22:06)
[2021-09-13] VITALS (8 sets, daily range): BP systolic 99–120; BP diastolic 58–76
[2021-09-13] MEDS: methylPREDNISolone SOD SUCC 40 MG/ML VL IV SCH ×4 (03:17→21:30)
[2021-09-13] MEDS: IPRATROPIUM BROM 0.5 MG/2.5ML INH SOL NEB SCH ×5 (06:33→22:00)
[2021-09-13] MEDS: ALBUTEROL SULF 2.5 MG/0.5ML(0.5%) NEB SOLN NEB SCH ×5 (06:34→22:00)
[2021-09-13] MEDS: cefTRIAXone 1GM/50ML D5W 50 ML IV SCH (09:44)
[2021-09-13] MEDS: LORazepam 0.5 MG TAB PO SCH ×2 (09:44→21:30)
[2021-09-13] MEDS: LISINOPRIL 20 MG TAB PO SCH (09:45)
[2021-09-13] MEDS: amLODIPine BESYLATE 5 MG TAB PO SCH (09:45)
[2021-09-13] MEDS: ENOXAPARIN SOD 30 MG/0.3 ML SYRINGE SC SCH (09:45)
[2021-09-13] MEDS ORDERED: CITALOPRAM HYDROBR 20 MG TAB PO SCH (10:00)
[2021-09-13] MEDS ORDERED: LORA-655 PO (18:16)
[2021-09-13] MEDS ORDERED: ALB5IS NEB (18:16)
[2021-09-13] MEDS ORDERED: IPR002IS NEB (18:16)
[2021-09-13] MEDS ORDERED: DOX100T PO (18:16)
[2021-09-13] MEDS ORDERED: PRED20TA2 PO (18:16)
[2021-09-13] MEDS: HYDROcodone-ACET 5/325MG TAB PO PRN (19:48)
[2021-09-13] MEDS: MIRTAZAPINE 30 MG TAB PO SCH (21:31)
[2021-09-14] MEDS: IPRATROPIUM BROM 0.5 MG/2.5ML INH SOL NEB SCH (02:00)
[2021-09-14] MEDS: ALBUTEROL SULF 2.5 MG/0.5ML(0.5%) NEB SOLN NEB SCH (02:00)
[2021-09-14] MEDS: methylPREDNISolone SOD SUCC 40 MG/ML VL IV SCH ×2 (03:58→09:29)
[2021-09-14] MEDS ORDERED: ALBUTEROL SULF 2.5 MG/0.5ML(0.5%) NEB SOLN NEB PRN (04:45)
[2021-09-14] MEDS ORDERED: IPRATROPIUM BROM 0.5 MG/2.5ML INH SOL NEB PRN (04:45)
[2021-09-14 05:00] VITALS: BP 126/78
[2021-09-14 09:00] VITALS: BP 124/68
[2021-09-14] MEDS: cefTRIAXone 1GM/50ML D5W 50 ML IV SCH (09:29)
[2021-09-14] MEDS: ENOXAPARIN SOD 30 MG/0.3 ML SYRINGE SC SCH (09:30)
[2021-09-14] MEDS: LISINOPRIL 20 MG TAB PO SCH (09:30)
[2021-09-14] MEDS: LORazepam 0.5 MG TAB PO SCH (09:31)
[2021-09-14] MEDS: amLODIPine BESYLATE 5 MG TAB PO SCH (09:31)
[2021-09-14] MEDS: HYDROcodone-ACET 5/325MG TAB PO PRN (09:39)
[2021-09-14 13:00] VITALS: BP 105/71
== END 2021-09-14 14:07 | disposition home health service (06) | DRG 202 ==
LOC: ER 22:18 → EDBD 22:18 → OVERFLOW 09-12 07:37 → CENTRAL 09-12 10:27
PROVIDERS: ADMIT Hospitalist; ATTEND Hospitalist
DX: J45.901 Unspecified asthma with (acute) exacerbation (principal); J44.1 Chronic obstructive pulmonary disease with (acute) exacerbation; F32.A Depression, unspecified; F41.9 Anxiety disorder, unspecified; I10 Essential (primary) hypertension; Z20.822 Contact with and (suspected) exposure to COVID-19; Z79.899 Other long term (current) drug therapy; Z83.3 Family history of diabetes mellitus; Z80.0 Family history of malignant neoplasm of digestive organs; Z82.49 Family history of ischemic heart disease and other diseases of the circulatory system; Z82.5 Family history of asthma and other chronic lower respiratory diseases; Z87.891 Personal history of nicotine dependence; Z98.51 Tubal ligation status
CPT/HCPCS: 36415; 71045; 80053; 83880; 84484; 85025; 87426; 93005; 94640; 96375; 96376; G0378; J0696; J2405

== ENCOUNTER 2022-01-21 03:44 | Emergency (ER) | payer OTHER ==
[~2022-01-21] VITALS: Ht 154.9 cm; Wt 45.4 kg
[2022-01-21] MEDS ORDERED: ALPRAZolam 0.5 MG TAB PO ONE (08:15)
[2022-01-21] MEDS ORDERED: SODIUM CHLORIDE 0.9% 1,000 ML IV ONE (08:15)
[2022-01-21] MEDS ORDERED: SODIUM CHLORIDE 0.9% 500 ML IV ONE (08:15)
[2022-01-21 09:11] LABS: Basophils # (auto) 0 10 ^3/uL (0-0.2); Basophils % (auto) 0.7 % (0.0-2.0); Eosinophils # (auto) 0.1 10 ^3/uL (0-0.8); Eosinophils % (auto) 2.2 % (0.0-7.0); Hematocrit 46.4 % (36.0-46.0); Hemoglobin 15.7 g/dL (12.2-16.2); Lymphocytes # (auto) 1.8 10 ^3/uL (0.4-5.4); Lymphocytes % (auto) 33.7 % (10.0-50.0); Mean Corpuscular Hemoglobin 31.3 pg (28.0-32.0); Mean Corpuscular Hgb Conc. 33.8 g/dL (32.0-36.0); Mean Corpuscular Volume 92.7 fL (80.0-100.0); Monocytes # (auto) 0.7 10 ^3/uL (0-1.3); Monocytes % (auto) 12.3 % (0.0-12.0); Neutrophils # (auto) 2.7 10 ^3/uL (1.6-8.6); Neutrophils % (auto) 51.1 % (37.0-80.0); Nucleated Red Blood Cells % 0.6 %; Red Blood Cells 5.01 10^6/uL (4.0-5.20); Red Cell Distribution Width 13.8 % (11.8-14.3); White Blood Cell 5.4 10^3/uL (4.4-10.8)
[2022-01-21 09:27] LABS: Albumin 3.3 g/dL (3.4-5.0); Calcium 9.2 mg/dL (8.5-10.1); Magnesium 2.8 mg/dL (1.6-2.6); Potassium 3.2 mmol/L (3.5-5.1)
[2022-01-21] MEDS ORDERED: LORazepam 2MG/ML-1ML VIAL IV ONE ×2 (09:30→14:00)
[2022-01-21 09:32] LABS: BUN/Creatinine Ratio 17.2; Bilirubin, Total 0.4 mg/dL (0.2-1.0); Total Protein 7.5 g/dL (6.4-8.2)
[2022-01-21 11:37] LABS: Urine Bacteria NONE SEEN /hpf (None Seen); Urine Blood Negative /uL (Negative); Urine Mucus FEW (None Seen); Urine Specific Gravity 1.022 (1.001-1.035); Urine WBC 61 /hpf (0 - 5)
[2022-01-21] MEDS ORDERED: POTASSIUM EFFERVESENT TAB 25 MEQ PO ONE (16:15)
[2022-01-21] MEDS ORDERED: ONDANSETRON HCL 4 MG/2 ML VIAL IV ONE (18:15)
[2022-01-22] MEDS ORDERED: LORazepam 2MG/ML-1ML VIAL IV ONE ×3 (06:00→15:15)
[2022-01-22 18:38] VITALS: BP 126/82
[2022-01-22] MEDS ORDERED: diazePAM 5 MG TAB PO ONE (20:00)
== END 2022-01-22 20:41 | disposition left against medical advice (07) ==
LOC: ER 03:44 → EDBD 03:44 → ER 01-22 20:39
DX: F41.0 Panic disorder [episodic paroxysmal anxiety] (principal); E87.6 Hypokalemia; E46 Unspecified protein-calorie malnutrition; H54.7 Unspecified visual loss; J44.9 Chronic obstructive pulmonary disease, unspecified; I10 Essential (primary) hypertension; Z68.1 Body mass index [BMI] 19.9 or less, adult; Z87.891 Personal history of nicotine dependence; Z20.822 Contact with and (suspected) exposure to COVID-19
CPT/HCPCS: 36415; 73502; 80053; 81001; 83735; 85025; 87426; 93005; 96361; 96374; 96375; 96376; 99285; J2060; J2405; J7030; J7040

== ENCOUNTER 2022-03-19 04:39 | Emergency (ER) | payer OTHER ==
[~2022-03-19] VITALS: Ht 152.4 cm; Wt 44.5 kg
[2022-03-19] MEDS ORDERED: ALBUTEROL SULF 2.5 MG/0.5ML(0.5%) NEB SOLN NEB ONE ×2 (05:30→09:15)
[2022-03-19] MEDS ORDERED: AZITHROMYCIN 500MG/ 250ML 250 ML IV ONE (05:30)
[2022-03-19] MEDS ORDERED: IPRATROPIUM BROM 0.5 MG/2.5ML INH SOL NEB ONE ×2 (05:30→09:15)
[2022-03-19] MEDS ORDERED: DexAMETHasone SOD PHOS 10MG/1ML VIAL INJ IM ONE (05:30)
[2022-03-19 06:11] LABS: Albumin 3.7 g/dL (3.4-5.0); Calcium 9.4 mg/dL (8.5-10.1); Potassium 3.8 mmol/L (3.5-5.1)
[2022-03-19 06:14] LABS: BUN/Creatinine Ratio 16.3; Bilirubin, Total 0.4 mg/dL (0.2-1.0)
[2022-03-19 07:10] LABS: Basophils # (auto) 0 10 ^3/uL (0-0.2); Eosinophils # (auto) 0.5 10 ^3/uL (0-0.8); Eosinophils % (auto) 9.8 % (0.0-7.0); Hematocrit 45.7 % (36.0-46.0); Hemoglobin 15.6 g/dL (12.2-16.2); Lymphocytes # (auto) 1.6 10 ^3/uL (0.4-5.4); Lymphocytes % (auto) 34.1 % (10.0-50.0); Mean Corpuscular Hemoglobin 32.4 pg (28.0-32.0); Mean Corpuscular Hgb Conc. 34.1 g/dL (32.0-36.0); Monocytes # (auto) 0.5 10 ^3/uL (0-1.3); Monocytes % (auto) 10.8 % (0.0-12.0); Neutrophils # (auto) 2.1 10 ^3/uL (1.6-8.6); Neutrophils % (auto) 44.3 % (37.0-80.0); Nucleated Red Blood Cells % 0.2 %; Red Blood Cells 4.82 10^6/uL (4.0-5.20); Red Cell Distribution Width 14.4 % (11.8-14.3); White Blood Cell 4.7 10^3/uL (4.4-10.8)
[2022-03-19] MEDS ORDERED: LORazepam 0.5 MG TAB PO ONE ×2 (07:45→19:30)
[2022-03-19] MEDS ORDERED: MAGNESIUM SULFATE 1GM/100ML 100 ML IV ONE (09:15)
[2022-03-19] MEDS ORDERED: IOHEXOL 350 MG/ML 100ML IJ ONE (12:14)
[2022-03-19 16:43] LABS: Urine Bacteria NONE SEEN /hpf (None Seen); Urine Blood Negative /uL (Negative); Urine WBC 1 /hpf (0 - 5)
[2022-03-19 16:48] LABS: Urine Specific Gravity > 1.050 (1.001-1.035)
[2022-03-19] MEDS ORDERED: ACETAMINOPHEN 325 MG TAB PO ONE (19:30)
[2022-03-19] MEDS ORDERED: PRE1T PO (20:41)
[2022-03-19] MEDS ORDERED: AZIT250T9 PO (20:41)
[2022-03-19 20:55] VITALS: BP 135/84
[2022-03-19] MEDS ORDERED: LORA0.5T20 PO (21:04)
== END 2022-03-19 21:24 | disposition home or self-care (01) ==
LOC: EDBD 04:39 → ER 04:39
DX: J45.901 Unspecified asthma with (acute) exacerbation (principal); I72.8 Aneurysm of other specified arteries; J44.9 Chronic obstructive pulmonary disease, unspecified; I10 Essential (primary) hypertension; Z87.891 Personal history of nicotine dependence; Z20.822 Contact with and (suspected) exposure to COVID-19
CPT/HCPCS: 36415; 71045; 71275; 80053; 81001; 83735; 83880; 84484; 85025; 85379; 87426; 93005; 94640; 96365; 96366; 96367; 96372; 99285; J0456; J1100; J3475; J7644; Q9967

== ENCOUNTER 2022-03-30 17:47 | Inpatient (IN) | payer OTHER ==
[~2022-03-30] VITALS: Ht 152.4 cm; Wt 43.8 kg
[~2022-03-30 17:47] MED LIST changes: +AZIT250T9 PO; +LORA0.5T20 PO; +PRE1T PO
[2022-03-30] MEDS ORDERED: methylPREDNISolone SOD SUCC 125 MG/2 ML VL IV ONE (18:15)
[2022-03-30] MEDS ORDERED: LORazepam 0.5 MG TAB PO ONE (18:15)
[2022-03-30] MEDS ORDERED: ALBUTEROL SULF 2.5 MG/0.5ML(0.5%) NEB SOLN HHN ONE (18:15)
[2022-03-30] MEDS ORDERED: IPRATROPIUM BROM 0.5 MG/2.5ML INH SOL HHN ONE (18:15)
[2022-03-30 18:31] LABS: Basophils # (auto) 0 10 ^3/uL (0-0.2); Basophils % (auto) 0.8 % (0.0-2.0); Eosinophils # (auto) 0.2 10 ^3/uL (0-0.8); Eosinophils % (auto) 4.5 % (0.0-7.0); Hematocrit 46.2 % (36.0-46.0); Hemoglobin 15.5 g/dL (12.2-16.2); Lymphocytes # (auto) 1.1 10 ^3/uL (0.4-5.4); Lymphocytes % (auto) 19.5 % (10.0-50.0); Mean Corpuscular Hgb Conc. 33.5 g/dL (32.0-36.0); Mean Corpuscular Volume 95.4 fL (80.0-100.0); Monocytes # (auto) 0.7 10 ^3/uL (0-1.3); Monocytes % (auto) 12.5 % (0.0-12.0); Neutrophils # (auto) 3.4 10 ^3/uL (1.6-8.6); Neutrophils % (auto) 62.7 % (37.0-80.0); Red Blood Cells 4.84 10^6/uL (4.0-5.20); Red Cell Distribution Width 14.4 % (11.8-14.3); White Blood Cell 5.4 10^3/uL (4.4-10.8)
[2022-03-30 19:08] LABS: Albumin 3.6 g/dL (3.4-5.0); BUN/Creatinine Ratio 17.1; Calcium 9.1 mg/dL (8.5-10.1); Magnesium 2.4 mg/dL (1.6-2.6); Potassium 3.8 mmol/L (3.5-5.1)
[2022-03-30 19:11] LABS: Bilirubin, Total 0.2 mg/dL (0.2-1.0)
[2022-03-30] MEDS ORDERED: METH4PAK PO (21:12)
[2022-03-30] MEDS ORDERED: AZIT1POW PO (21:12)
[2022-03-31] MEDS ORDERED: ACETAMINOPHEN 325 MG TAB PO PRN (01:00)
[2022-03-31] MEDS ORDERED: ACETAMINOPHEN 325 MG TAB PO ONE (01:00)
[2022-03-31] MEDS ORDERED: MORPHINE SULFATE INJ 2 MG/ml SYRG IV PRN (01:00)
[2022-03-31] MEDS ORDERED: IPRATROPIUM BROM 0.5 MG/2.5ML INH SOL NEB PRN (01:00)
[2022-03-31] MEDS ORDERED: NITROGLYCERIN 0.4 MG SL TAB SL PRN (01:00)
[2022-03-31] MEDS ORDERED: ALBUTEROL SULF 2.5 MG/0.5ML(0.5%) NEB SOLN NEB PRN (01:00)
[2022-03-31 02:14] VITALS: BP 149/94
[2022-03-31] MEDS: TEMAZEPAM 15 MG CAP PO PRN ×2 (06:02→23:53)
[2022-03-31] MEDS: ONDANSETRON HCL 4 MG/2 ML VIAL IV PRN ×2 (06:02→16:09)
[2022-03-31] MEDS ORDERED: methylPREDNISolone SOD SUCC 125 MG/2 ML VL IV SCH (10:00)
[2022-03-31] MEDS: ENOXAPARIN SOD 40 MG/0.4 ML SYRINGE SC SCH (10:21)
[2022-03-31] MEDS: PANTOPRAZOLE 40 MG TAB PO SCH (10:21)
[2022-03-31] MEDS: amLODIPine BESYLATE 5 MG TAB PO SCH (10:22)
[2022-03-31] MEDS: HYDROcodone-ACET 5/325MG TAB PO PRN ×2 (12:14→16:09)
[2022-03-31] MEDS ORDERED: cefTRIAXone 1GM/50ML D5W 50 ML IV ONE (17:15)
[2022-03-31] MEDS: ALBUTEROL SULF 2.5 MG/0.5ML(0.5%) NEB SOLN NEB SCH (18:44)
[2022-03-31] MEDS: IPRATROPIUM BROM 0.5 MG/2.5ML INH SOL NEB SCH (18:44)
[2022-03-31] MEDS: BUDESONIDE (INHALATION) 0.5 MG/2 ML NEB NEB SCH (18:45)
[2022-03-31] MEDS: methylPREDNISolone SOD SUCC 125 MG/2 ML VL IV SCH ×2 (19:14→23:52)
[2022-03-31] MEDS ORDERED: TPN PER PHARMACY IV NR ×10 (20:00)
[2022-03-31 23:03] VITALS: BP 119/82
[2022-04-01] MEDS: LORazepam 0.5 MG TAB PO PRN ×2 (03:20→16:34)
[2022-04-01 05:00] VITALS: BP 135/88
[2022-04-01] MEDS: methylPREDNISolone SOD SUCC 125 MG/2 ML VL IV SCH ×4 (06:03→23:58)
[2022-04-01 06:35] LABS: Basophils # (auto) 0 10 ^3/uL (0-0.2); Basophils % (auto) 0.1 % (0.0-2.0); Eosinophils # (auto) 0 10 ^3/uL (0-0.8); Hematocrit 43.7 % (36.0-46.0); Lymphocytes # (auto) 0.5 10 ^3/uL (0.4-5.4); Lymphocytes % (auto) 10.8 % (10.0-50.0); Mean Corpuscular Hemoglobin 32.7 pg (28.0-32.0); Mean Corpuscular Hgb Conc. 34.3 g/dL (32.0-36.0); Mean Corpuscular Volume 95.1 fL (80.0-100.0); Monocytes # (auto) 0.2 10 ^3/uL (0-1.3); Monocytes % (auto) 3.5 % (0.0-12.0); Neutrophils # (auto) 4.3 10 ^3/uL (1.6-8.6); Neutrophils % (auto) 85.6 % (37.0-80.0); Red Cell Distribution Width 14.5 % (11.8-14.3)
[2022-04-01] MEDS: BUDESONIDE (INHALATION) 0.5 MG/2 ML NEB NEB SCH ×2 (06:38→19:34)
[2022-04-01] MEDS: ALBUTEROL SULF 2.5 MG/0.5ML(0.5%) NEB SOLN NEB SCH ×3 (06:38→19:35)
[2022-04-01] MEDS: IPRATROPIUM BROM 0.5 MG/2.5ML INH SOL NEB SCH ×3 (06:38→19:35)
[2022-04-01 07:01] LABS: Potassium 4.5 mmol/L (3.5-5.1)
[2022-04-01 07:07] LABS: Albumin 3.5 g/dL (3.4-5.0); BUN/Creatinine Ratio 20.5; Bilirubin, Total 0.4 mg/dL (0.2-1.0); Calcium 9.6 mg/dL (8.5-10.1); Total Protein 8.4 g/dL (6.4-8.2)
[2022-04-01 08:00] VITALS: BP 106/67
[2022-04-01] MEDS: cefTRIAXone 1GM/50ML D5W 50 ML IV SCH (08:41)
[2022-04-01] MEDS: amLODIPine BESYLATE 5 MG TAB PO SCH (09:30)
[2022-04-01] MEDS: PANTOPRAZOLE 40 MG TAB PO SCH (09:31)
[2022-04-01] MEDS: ENOXAPARIN SOD 40 MG/0.4 ML SYRINGE SC SCH (09:31)
[2022-04-01 12:00] VITALS: BP 151/85
[2022-04-01] MEDS: HYDROcodone-ACET 5/325MG TAB PO PRN ×2 (14:12→23:57)
[2022-04-01 17:00] VITALS: BP 135/81
[2022-04-01] MEDS: FUROSEMIDE 20 MG TAB PO SCH (18:55)
[2022-04-01] MEDS: LORazepam 0.5 MG TAB PO SCH (21:57)
[2022-04-01 22:00] VITALS: BP 136/76
[2022-04-02 05:00] VITALS: BP 108/71
[2022-04-02] MEDS: ALBUTEROL SULF 2.5 MG/0.5ML(0.5%) NEB SOLN NEB SCH ×2 (06:18→10:48)
[2022-04-02] MEDS: IPRATROPIUM BROM 0.5 MG/2.5ML INH SOL NEB SCH ×3 (06:18→19:21)
[2022-04-02] MEDS: BUDESONIDE (INHALATION) 0.5 MG/2 ML NEB NEB SCH ×2 (06:18→19:21)
[2022-04-02] MEDS: methylPREDNISolone SOD SUCC 125 MG/2 ML VL IV SCH ×3 (06:21→21:37)
[2022-04-02] MEDS: FUROSEMIDE 20 MG TAB PO SCH ×2 (06:21→17:29)
[2022-04-02] MEDS: HYDROcodone-ACET 5/325MG TAB PO PRN ×3 (06:22→20:42)
[2022-04-02 08:32] LABS: Basophils # (auto) 0 10 ^3/uL (0-0.2); Basophils % (auto) 0.5 % (0.0-2.0); Eosinophils # (auto) 0 10 ^3/uL (0-0.8); Eosinophils % (auto) 0.1 % (0.0-7.0); Hemoglobin 15.7 g/dL (12.2-16.2); Lymphocytes # (auto) 0.7 10 ^3/uL (0.4-5.4); Lymphocytes % (auto) 7.4 % (10.0-50.0); Mean Corpuscular Hemoglobin 31.4 pg (28.0-32.0); Mean Corpuscular Hgb Conc. 33.5 g/dL (32.0-36.0); Mean Corpuscular Volume 93.8 fL (80.0-100.0); Monocytes # (auto) 0.6 10 ^3/uL (0-1.3); Monocytes % (auto) 6.9 % (0.0-12.0); Neutrophils # (auto) 7.5 10 ^3/uL (1.6-8.6); Neutrophils % (auto) 85.1 % (37.0-80.0); Nucleated Red Blood Cells % 0.1 %; Red Blood Cells 5.01 10^6/uL (4.0-5.20); Red Cell Distribution Width 14.4 % (11.8-14.3); White Blood Cell 8.8 10^3/uL (4.4-10.8)
[2022-04-02] MEDS: cefTRIAXone 1GM/50ML D5W 50 ML IV SCH (08:40)
[2022-04-02 08:56] LABS: Calcium 9.2 mg/dL (8.5-10.1); Potassium 5.1 mmol/L (3.5-5.1)
[2022-04-02 09:00] LABS: BUN/Creatinine Ratio 37.2
[2022-04-02 09:30] VITALS: BP 130/64
[2022-04-02] MEDS: LORazepam 0.5 MG TAB PO SCH (10:08)
[2022-04-02] MEDS: amLODIPine BESYLATE 5 MG TAB PO SCH (10:09)
[2022-04-02] MEDS: ENOXAPARIN SOD 40 MG/0.4 ML SYRINGE SC SCH (10:09)
[2022-04-02 13:00] VITALS: BP 137/57
[2022-04-02] MEDS: LORazepam 0.5 MG TAB PO PRN (20:42)
[2022-04-02 21:16] VITALS: BP 122/80
[2022-04-02 22:04] VITALS: BP 141/90
[2022-04-02] MEDS: ALBUTEROL SULF 2.5 MG/0.5ML(0.5%) NEB SOLN NEB PRN (22:18)
[2022-04-03] MEDS: ALBUTEROL SULF 2.5 MG/0.5ML(0.5%) NEB SOLN NEB PRN ×3 (00:06→12:24)
[2022-04-03] MEDS: IPRATROPIUM BROM 0.5 MG/2.5ML INH SOL NEB SCH ×3 (00:32→12:24)
[2022-04-03 05:18] VITALS: BP 145/82
[2022-04-03] MEDS: methylPREDNISolone SOD SUCC 125 MG/2 ML VL IV SCH ×2 (06:42→14:00)
[2022-04-03] MEDS: FUROSEMIDE 20 MG TAB PO SCH (06:42)
[2022-04-03] MEDS: BUDESONIDE (INHALATION) 0.5 MG/2 ML NEB NEB SCH (06:55)
[2022-04-03] MEDS: cefTRIAXone 1GM/50ML D5W 50 ML IV SCH (08:32)
[2022-04-03] MEDS: amLODIPine BESYLATE 5 MG TAB PO SCH (08:32)
[2022-04-03] MEDS: ENOXAPARIN SOD 40 MG/0.4 ML SYRINGE SC SCH (08:33)
[2022-04-03] MEDS: LORazepam 0.5 MG TAB PO PRN (08:33)
[2022-04-03] MEDS: HYDROcodone-ACET 5/325MG TAB PO PRN (08:33)
[2022-04-03 09:00] VITALS: BP 128/82
[2022-04-03] MEDS ORDERED: ALB5IS NEB (09:27)
[2022-04-03] MEDS ORDERED: IPR002IS NEB (09:27)
[2022-04-03] MEDS ORDERED: PRED20TA2 PO (09:27)
[2022-04-03] MEDS ORDERED: HYDROcodone-ACET 5/325MG TAB PO PRN (09:45)
[2022-04-03] MEDS ORDERED: LISINOPRIL 20 MG TAB PO SCH (10:00)
[2022-04-03] MEDS ORDERED: CITALOPRAM HYDROBR 20 MG TAB PO SCH (10:00)
[2022-04-03 14:33] VITALS: BP 102/69
[2022-04-04] MEDS ORDERED: amLODIPine BESYLATE 5 MG TAB PO SCH (10:00)
== END 2022-04-03 16:23 | DRG 202 ==
LOC: EDUNIT# 17:47 → EDBD 17:47 → ER 17:47 → TELE 03-31 00:53 → TELE-WESTW 03-31 22:40
PROVIDERS: ADMIT Nurse Practitioner; ATTEND Hospitalist
DX: J45.901 Unspecified asthma with (acute) exacerbation (principal); J44.1 Chronic obstructive pulmonary disease with (acute) exacerbation; E44.1 Mild protein-calorie malnutrition; F41.0 Panic disorder [episodic paroxysmal anxiety]; H54.7 Unspecified visual loss; F32.A Depression, unspecified; Z60.2 Problems related to living alone; Z20.822 Contact with and (suspected) exposure to COVID-19; I10 Essential (primary) hypertension; Z82.5 Family history of asthma and other chronic lower respiratory diseases; Z83.3 Family history of diabetes mellitus; Z87.891 Personal history of nicotine dependence
CPT/HCPCS: 36415; 36600; 71045; 80048; 80053; 82805; 83735; 83880; 84484; 85025; 85379; 93005; 94640; 96374; 97110; 97116; 97163; 97530; G0378; J0696; J2405

== ENCOUNTER 2022-07-08 06:54 | Emergency (ER) | payer OTHER ==
[~2022-07-08] VITALS: Ht 152.4 cm; Wt 43.6 kg
[~2022-07-08 06:54] MED LIST changes: -AZIT250T9 PO; -DOX100T PO; -LORA0.5T20 PO
[2022-07-08 07:44] LABS: Basophils # (auto) 0 10 ^3/uL (0-0.2); Basophils % (auto) 0.2 % (0.0-2.0); Eosinophils # (auto) 0 10 ^3/uL (0-0.8); Eosinophils % (auto) 0.1 % (0.0-7.0); Hematocrit 48.9 % (36.0-46.0); Hemoglobin 15.9 g/dL (12.2-16.2); Lymphocytes # (auto) 0.3 10 ^3/uL (0.4-5.4); Lymphocytes % (auto) 4.7 % (10.0-50.0); Mean Corpuscular Hgb Conc. 32.4 g/dL (32.0-36.0); Mean Corpuscular Volume 92.3 fL (80.0-100.0); Monocytes # (auto) 0.9 10 ^3/uL (0-1.3); Monocytes % (auto) 12.8 % (0.0-12.0); Neutrophils # (auto) 5.8 10 ^3/uL (1.6-8.6); Neutrophils % (auto) 82.2 % (37.0-80.0); Nucleated Red Blood Cells % 0.1 %; Red Blood Cells 5.29 10^6/uL (4.0-5.20); Red Cell Distribution Width 14.4 % (11.8-14.3)
[2022-07-08] MEDS ORDERED: ONDANSETRON HCL 4 MG/2 ML VIAL IV ONE (07:45)
[2022-07-08 08:19] LABS: Sodium 137 mmol/L (136-145)
[2022-07-08 08:20] LABS: Alanine Aminotransferase 19 U/L (13-56); Alkaline Phosphatase 107 U/L (45-117); Anion Gap 7 (5-15); Aspartate Aminotransferase 15 U/L (15-37); BUN/Creatinine Ratio 15.3; Blood Urea Nitrogen 9 mg/dL (7-18); Calcium 8.9 mg/dL (8.5-10.1); Carbon Dioxide 21 mmol/L (21-32); Chloride 109 mmol/L (98-107); GFR African American 130 mL/min; GFR Non-African American 107 mL/min; Glucose 110 mg/dL (74-106); Potassium 3.2 mmol/L (3.5-5.1)
[2022-07-08 08:21] LABS: Albumin 3.8 g/dL (3.4-5.0); Bilirubin, Total 0.4 mg/dL (0.2-1.0); Lipase 69 U/L (73-393); Total Protein 8.2 g/dL (6.4-8.2)
[2022-07-08] MEDS ORDERED: KETOROLAC TROMETH 30 MG/ML 1ML VIAL IV ONE (08:30)
[2022-07-08] MEDS ORDERED: METOCLOPRAMIDE HCL 5MG/ml INJ 2ml VIAL IV ONE (08:30)
[2022-07-08 09:08] LABS: Urine Bacteria FEW /hpf (None Seen); Urine Blood Negative /uL (Negative); Urine Mucus FEW (None Seen); Urine Specific Gravity 1.016 (1.001-1.035); Urine WBC 2 /hpf (0 - 5)
[2022-07-08] MEDS ORDERED: HYDROmorphone HCL 2 MG/ML VL/or syr IV ONE (12:00)
[2022-07-08 18:01] VITALS: BP 152/96
[2022-07-08] MEDS ORDERED: NAP500T PO (18:41)
[2022-07-08] MEDS ORDERED: HYDR-4902 PO (18:41)
[2022-07-08] MEDS ORDERED: CYCL-614 PO (18:41)
[2022-07-08] MEDS ORDERED: METO-281 PO (19:03)
== END 2022-07-08 18:55 | disposition home or self-care (01) ==
LOC: ER 06:54 → EDBD 06:54 → ER 18:55
DX: G43.B0 Ophthalmoplegic migraine, not intractable (principal); E87.6 Hypokalemia; I10 Essential (primary) hypertension; F12.10 Cannabis abuse, uncomplicated; J44.9 Chronic obstructive pulmonary disease, unspecified; Z87.891 Personal history of nicotine dependence; Z98.51 Tubal ligation status
CPT/HCPCS: 36415; 70450; 80053; 81001; 83690; 85025; 93005; 96374; 96375; 99285; J1170; J1885; J2765

== ENCOUNTER 2022-08-13 05:45 | Emergency (ER) | payer OTHER ==
[~2022-08-13] VITALS: Ht 154.9 cm; Wt 43.0 kg
[2022-08-13 05:45] VITALS: BP 155/102
[~2022-08-13 05:45] MED LIST changes: +CYCL-614 PO; +HYDR-4902 PO; +METO-281 PO; +NAP500T PO
[2022-08-13] MEDS ORDERED: LORazepam 0.5 MG TAB PO ONE (08:30)
[2022-08-13] MEDS ORDERED: DexAMETHasone SOD PHOS 10MG/1ML VIAL INJ IV ONE (09:00)
[2022-08-13] MEDS ORDERED: MAGNESIUM SULFATE 1GM/100ML 100 ML IV ONE (09:00)
[2022-08-13] MEDS ORDERED: IPRATROPIUM BROM 0.5 MG/2.5ML INH SOL NEB ONE (09:00)
[2022-08-13] MEDS ORDERED: ALBUTEROL SULF 2.5 MG/0.5ML(0.5%) NEB SOLN NEB ONE (09:00)
[2022-08-13 10:09] LABS: Basophils # (auto) 0 10 ^3/uL (0-0.2); Basophils % (auto) 0.5 % (0.0-2.0); Eosinophils # (auto) 0.5 10 ^3/uL (0-0.8); Eosinophils % (auto) 7.6 % (0.0-7.0); Hematocrit 45.4 % (36.0-46.0); Hemoglobin 14.9 g/dL (12.2-16.2); Lymphocytes # (auto) 2.2 10 ^3/uL (0.4-5.4); Lymphocytes % (auto) 32.6 % (10.0-50.0); Mean Corpuscular Hemoglobin 30.2 pg (28.0-32.0); Mean Corpuscular Hgb Conc. 32.8 g/dL (32.0-36.0); Mean Corpuscular Volume 92.1 fL (80.0-100.0); Monocytes # (auto) 0.7 10 ^3/uL (0-1.3); Monocytes % (auto) 9.6 % (0.0-12.0); Neutrophils # (auto) 3.4 10 ^3/uL (1.6-8.6); Neutrophils % (auto) 49.7 % (37.0-80.0); Red Blood Cells 4.93 10^6/uL (4.0-5.20); Red Cell Distribution Width 14.7 % (11.8-14.3); White Blood Cell 6.9 10^3/uL (4.4-10.8)
[2022-08-13 10:31] LABS: Albumin 3.5 g/dL (3.4-5.0); BUN/Creatinine Ratio 26.7; Magnesium 2.5 mg/dL (1.6-2.6); Potassium 3.6 mmol/L (3.5-5.1)
[2022-08-13 10:33] LABS: Bilirubin, Total 0.3 mg/dL (0.2-1.0); Total Protein 7.6 g/dL (6.4-8.2)
== END 2022-08-13 13:32 | disposition home or self-care (01) ==
LOC: EDUNIT# 05:45 → EDBD 05:45 → ER 05:45
DX: J45.901 Unspecified asthma with (acute) exacerbation (principal); I10 Essential (primary) hypertension; F12.10 Cannabis abuse, uncomplicated; Z87.891 Personal history of nicotine dependence; Z98.51 Tubal ligation status
CPT/HCPCS: 36415; 71045; 80053; 83735; 84484; 85025; 93005; 94640; 96365; 96366; 96375; 99285; J1100; J3475; J7644

== ENCOUNTER 2023-03-12 15:54 | Emergency (ER) | payer OTHER ==
[~2023-03-12] VITALS: Ht 157.5 cm; Wt 59.0 kg
[~2023-03-12 15:54] MED LIST changes: +HYDR25CA PO
[2023-03-12 16:00] VITALS: BP 186/106
[2023-03-12] MEDS ORDERED: cloNIDine HCL 0.1 MG TAB PO ONE (16:45)
[2023-03-12] MEDS ORDERED: HYDROcodone-ACET 5/325MG TAB PO ONE (16:45)
[2023-03-12] MEDS ORDERED: HYDROcodone-ACET 10/325MG TAB PO ONE (16:45)
[2023-03-12] MEDS ORDERED: ACET-1080 PO (17:27)
[2023-03-12] MEDS ORDERED: CLIN300C8 PO (17:27)
== END 2023-03-12 17:34 | disposition home or self-care (01) ==
LOC: ER 15:54 → EDBD 15:54 → ER 17:32
DX: K04.7 Periapical abscess without sinus (principal); J44.9 Chronic obstructive pulmonary disease, unspecified; I10 Essential (primary) hypertension; Z98.51 Tubal ligation status; Z88.6 Allergy status to analgesic agent; Z88.8 Allergy status to other drugs, medicaments and biological substances
CPT/HCPCS: 93005

== ENCOUNTER 2023-04-17 05:09 | Emergency (ER) | payer OTHER ==
[~2023-04-17] VITALS: Ht 152.4 cm; Wt 45.5 kg
[~2023-04-17 05:09] MED LIST changes: +ACET-1080 PO; -AMLO-489 PO; +AMLO1TAB22 PO; +CLIN300C70 PO; -LISI20TA28 PO; +LISI20TA56 PO; -MIRT-68 PO; +MIRT-93 PO
[2023-04-17 05:40] VITALS: BP 166/106
[2023-04-17] MEDS ORDERED: HYDROcodone-ACET 5/325MG TAB PO ONE (07:00)
[2023-04-17] MEDS ORDERED: CLIN300C70 PO (07:37)
[2023-04-17] MEDS ORDERED: HYDR-4902 PO (07:37)
== END 2023-04-17 07:52 | disposition home or self-care (01) ==
LOC: ER 05:09
DX: K05.10 Chronic gingivitis, plaque induced (principal); F12.10 Cannabis abuse, uncomplicated; F41.9 Anxiety disorder, unspecified; J44.9 Chronic obstructive pulmonary disease, unspecified; F32.9 Major depressive disorder, single episode, unspecified; I10 Essential (primary) hypertension; Z87.891 Personal history of nicotine dependence

== ENCOUNTER 2023-04-27 00:10 | Emergency (ER) | payer OTHER ==
[~2023-04-27] VITALS: Ht 167.6 cm; Wt 54.5 kg
[2023-04-27] MEDS ORDERED: ACE3T PO (03:59)
[2023-04-27] MEDS ORDERED: AMOX875T4 PO (03:59)
[2023-04-27 04:00] VITALS: BP 184/90
[2023-04-27] MEDS ORDERED: ONDANSETRON ODT 4 MG TAB PO ONE (04:00)
[2023-04-27] MEDS ORDERED: BENZOCAINE (DENTAL) 20 % SPRAY 60ML MT ONE ×2 (04:00→04:08)
[2023-04-27] MEDS ORDERED: MORPHINE SULFATE INJ 2 MG/ml SYRG IM ONE (04:00)
== END 2023-04-27 04:41 | disposition home or self-care (01) ==
LOC: EDBD 00:10 → ER 00:10
DX: K05.10 Chronic gingivitis, plaque induced (principal); H57.11 Ocular pain, right eye; R51.9 Headache, unspecified; J44.9 Chronic obstructive pulmonary disease, unspecified; I10 Essential (primary) hypertension; F12.10 Cannabis abuse, uncomplicated; Z87.891 Personal history of nicotine dependence
CPT/HCPCS: 70450; 70480; 96372; 99285; J2270; Q0162

== ENCOUNTER 2023-05-09 03:48 | Emergency (ER) | payer OTHER ==
[~2023-05-09] VITALS: Ht 165.1 cm; Wt 50.0 kg
[~2023-05-09 03:48] MED LIST changes: +ACE3T PO; +AMOX875T4 PO
[2023-05-09 04:15] VITALS: PULSE 68; RESP 13; TEMP 97.7; O2SAT 98
[2023-05-09 04:30] LABS: Basophils # (auto) 0 10 ^3/uL (0-0.2); Basophils % (auto) 0.5 % (0.0-2.0); Eosinophils # (auto) 0.1 10 ^3/uL (0-0.8); Eosinophils % (auto) 1.9 % (0.0-7.0); Hematocrit 41.4 % (36.0-46.0); Hemoglobin 13.5 g/dL (12.2-16.2); Lymphocytes # (auto) 1.8 10 ^3/uL (0.4-5.4); Lymphocytes % (auto) 34.8 % (10.0-50.0); Mean Corpuscular Hemoglobin 30.8 pg (28.0-32.0); Mean Corpuscular Hgb Conc. 32.7 g/dL (32.0-36.0); Mean Corpuscular Volume 94.3 fL (80.0-100.0); Monocytes # (auto) 0.6 10 ^3/uL (0-1.3); Monocytes % (auto) 11.3 % (0.0-12.0); Neutrophils # (auto) 2.6 10 ^3/uL (1.6-8.6); Neutrophils % (auto) 51.5 % (37.0-80.0); Nucleated Red Blood Cells % 0.1 %; Red Blood Cells 4.39 10^6/uL (4.0-5.20); Red Cell Distribution Width 14.4 % (11.8-14.3); White Blood Cell 5.1 10^3/uL (4.4-10.8)
[2023-05-09 04:37] LABS: Albumin 3.2 g/dL (3.4-5.0); Calcium 8.8 mg/dL (8.5-10.1); Potassium 3.3 mmol/L (3.5-5.1)
[2023-05-09 04:41] LABS: BUN/Creatinine Ratio 14.7 (10.0-20.0); Bilirubin, Total 0.5 mg/dL (0.2-1.0); Total Protein 6.9 g/dL (6.4-8.2)
[2023-05-09] MEDS ORDERED: HYDROcodone-ACET 10/325MG TAB PO ONE (05:00)
[2023-05-09 08:49] VITALS: PULSE 66; RESP 16; O2SAT 96
[2023-05-09] MEDS ORDERED: LORazepam 2MG/ML-1ML VIAL IV ONE (11:15)
[2023-05-09] MEDS ORDERED: HYDROmorphone HCL 2 MG/ML VL/or syr IV ONE (11:15)
[2023-05-09] MEDS ORDERED: ONDANSETRON HCL 4 MG/2 ML VIAL IV ONE (11:15)
[2023-05-09] MEDS ORDERED: POTASSIUM CHL 20 Meq TABLET PO ONE (11:30)
[2023-05-09] MEDS ORDERED: METO-281 PO (11:34)
[2023-05-09] MEDS ORDERED: ACET-1304 PO (11:34)
[2023-05-09] MEDS ORDERED: ZOLM5TAB4 PO (11:34)
[2023-05-09 13:42] VITALS: BP 132/96; PULSE 64; RESP 18; O2SAT 95
== END 2023-05-09 13:54 | disposition home or self-care (01) ==
LOC: ER 03:48 → EDBD 03:48 → ER 13:54
DX: R51.9 Headache, unspecified (principal); G89.4 Chronic pain syndrome; J44.9 Chronic obstructive pulmonary disease, unspecified; I10 Essential (primary) hypertension; F12.10 Cannabis abuse, uncomplicated; Z87.891 Personal history of nicotine dependence
CPT/HCPCS: 36415; 70450; 80053; 85025; 96374; 96375; 99285; J1170; J2060; J2405

== ENCOUNTER 2023-10-17 09:49 | Emergency (ER) | payer OTHER ==
[~2023-10-17] VITALS: Ht 152.4 cm; Wt 45.4 kg
[~2023-10-17 09:49] MED LIST changes: +ACET-1304 PO; +ZOLM5TAB4 PO
[2023-10-17 10:05] VITALS: BP 166/104; RESP 24; O2SAT 96
[2023-10-17 10:17] VITALS: PULSE 70
[2023-10-18] MEDS ORDERED: DEX4T PO (16:18)
[2023-10-18] MEDS ORDERED: AZIT-43 PO (16:18)
== END 2023-10-17 15:31 | disposition left against medical advice (07) ==
LOC: EDBD 09:49 → ER 09:49
DX: R06.02 Shortness of breath (principal); Z53.21 Procedure and treatment not carried out due to patient leaving prior to being seen by health care provider
CPT/HCPCS: 93005

== ENCOUNTER 2023-10-18 11:18 | Emergency (ER) | payer OTHER ==
[~2023-10-18] VITALS: Ht 160 cm; Wt 50.0 kg
[2023-10-18] MEDS ORDERED: methylPREDNISolone SOD SUCC 125 MG/2 ML VL IV ONE (11:30)
[2023-10-18] MEDS ORDERED: BUDESONIDE (INHALATION) 0.5 MG/2 ML NEB NEB ONE (11:30)
[2023-10-18 11:39] VITALS: BP 134/83; RESP 18; TEMP 97.8; O2SAT 99
[2023-10-18 12:19] LABS: Basophils # (auto) 0 10 ^3/uL (0-0.2); Basophils % (auto) 0.4 % (0.0-2.0); Eosinophils # (auto) 0.1 10 ^3/uL (0-0.8); Eosinophils % (auto) 1.2 % (0.0-7.0); Hematocrit 46.2 % (36.0-46.0); Hemoglobin 15.4 g/dL (12.2-16.2); Lymphocytes # (auto) 0.6 10 ^3/uL (0.4-5.4); Lymphocytes % (auto) 9.8 % (10.0-50.0); Mean Corpuscular Hemoglobin 31.4 pg (28.0-32.0); Mean Corpuscular Hgb Conc. 33.3 g/dL (32.0-36.0); Mean Corpuscular Volume 94.3 fL (80.0-100.0); Monocytes # (auto) 0.5 10 ^3/uL (0-1.3); Monocytes % (auto) 7.2 % (0.0-12.0); Neutrophils # (auto) 5.3 10 ^3/uL (1.6-8.6); Neutrophils % (auto) 81.4 % (37.0-80.0); Nucleated Red Blood Cells % 0.1 %; White Blood Cell 6.6 10^3/uL (4.4-10.8)
[2023-10-18 12:26] VITALS: PULSE 85
[2023-10-18 12:51] LABS: Alanine Aminotransferase 11 U/L (7-40); Albumin 4.4 g/dL (3.2-4.8); Alkaline Phosphatase 85 U/L (46-116); Anion Gap 7 (5-15); Aspartate Aminotransferase 15 U/L (13-40); BUN/Creatinine Ratio 12.9 (10.0-20.0); Blood Urea Nitrogen 8 mg/dL (9-23); Calcium 8.7 mg/dL (8.7-10.4); Carbon Dioxide 20 mmol/L (20-30); Chloride 114 mmol/L (98-107); Glucose 95 mg/dL (74-106); Magnesium 1.9 mg/dL (1.6-2.6); Potassium 3.5 mmol/L (3.5-5.1); Sodium 141 mmol/L (136-145)
[2023-10-18 12:52] LABS: Bilirubin, Total 0.2 mg/dL (0.2-1.0); Total Protein 7.2 g/dL (5.7-8.2)
[2023-10-18 13:53] LABS: Base Excess -1.7 mmol/L (-2.0-2.0)
[2023-10-18] MEDS ORDERED: IOHEXOL 350 MG/ML 100ML IJ ONE (15:25)
[2023-10-18 16:15] LABS: Rapid Influenza A Negative (Negative); Rapid Influenza B Negative (Negative)
[2023-10-18 16:16] LABS: COVID19 ANTIGEN SOFIA FIA NEGATIVE (NEGATIVE)
[2023-10-18] MEDS ORDERED: DEX4T PO (16:18)
[2023-10-18] MEDS ORDERED: AZIT-43 PO (16:18)
== END 2023-10-18 19:27 | disposition home or self-care (01) ==
LOC: EDBD 11:18 → ER 11:18
DX: J45.901 Unspecified asthma with (acute) exacerbation (principal); R09.02 Hypoxemia; I10 Essential (primary) hypertension; F12.10 Cannabis abuse, uncomplicated; Z98.51 Tubal ligation status; Z20.822 Contact with and (suspected) exposure to COVID-19
CPT/HCPCS: 36415; 36600; 71045; 80053; 82805; 83605; 83735; 83880; 84484; 85025; 85379; 87040; 87426; 87804; 93005; 93970

== ENCOUNTER 2023-11-23 23:00 | Emergency (ER) | payer OTHER ==
[~2023-11-23] VITALS: Ht 152.4 cm; Wt 42.0 kg
[~2023-11-23 23:00] MED LIST changes: +AZIT-43 PO; +DEX4T PO
[2023-11-23 23:36] LABS: Basophils # (auto) 0 10 ^3/uL (0-0.2); Basophils % (auto) 0.5 % (0.0-2.0); Eosinophils # (auto) 0.1 10 ^3/uL (0-0.8); Eosinophils % (auto) 1.9 % (0.0-7.0); Hematocrit 44.5 % (36.0-46.0); Hemoglobin 14.2 g/dL (12.2-16.2); Lymphocytes # (auto) 1.8 10 ^3/uL (0.4-5.4); Lymphocytes % (auto) 30.5 % (10.0-50.0); Monocytes # (auto) 0.8 10 ^3/uL (0-1.3); Monocytes % (auto) 14.1 % (0.0-12.0); Neutrophils # (auto) 3.1 10 ^3/uL (1.6-8.6); Nucleated Red Blood Cells % 0.1 %; Red Blood Cells 4.59 10^6/uL (4.0-5.20); Red Cell Distribution Width 16.1 % (11.8-14.3); White Blood Cell 5.8 10^3/uL (4.4-10.8)
[2023-11-23 23:50] LABS: Alanine Aminotransferase 11 U/L (7-40); Albumin 3.8 g/dL (3.2-4.8); Alkaline Phosphatase 80 U/L (46-116); Anion Gap 1 (5-15); Aspartate Aminotransferase 13 U/L (13-40); BUN/Creatinine Ratio 12.5 (10.0-20.0); Bilirubin, Total 0.3 mg/dL (0.2-1.0); Blood Urea Nitrogen 8 mg/dL (9-23); Calcium 9.3 mg/dL (8.7-10.4); Carbon Dioxide 28 mmol/L (20-30); Chloride 114 mmol/L (98-107); Glucose 88 mg/dL (74-106); Potassium 3.5 mmol/L (3.5-5.1); Sodium 143 mmol/L (136-145); Total Protein 6.9 g/dL (5.7-8.2)
[2023-11-24] MEDS ORDERED: HYDR25TA4 PO (04:53)
[2023-11-24 05:42] VITALS: BP 146/89; PULSE 76; RESP 16; TEMP 98; O2SAT 99
== END 2023-11-24 05:42 | disposition home or self-care (01) ==
LOC: EDBD 23:00 → ER 23:00 → EDUNIT# 23:00 → ER 11-24 05:42
DX: R60.0 Localized edema (principal); I10 Essential (primary) hypertension; F41.9 Anxiety disorder, unspecified; F32.9 Major depressive disorder, single episode, unspecified; J44.9 Chronic obstructive pulmonary disease, unspecified; F15.90 Other stimulant use, unspecified, uncomplicated; Z98.890 Other specified postprocedural states; Z87.891 Personal history of nicotine dependence; Z79.899 Other long term (current) drug therapy
CPT/HCPCS: 36415; 71045; 71275; 80053; 83605; 83880; 84484; 85025; 85379; 87040; 93005; 93970; 99285; Q9967

== ENCOUNTER 2024-10-09 17:04 | Emergency (ER) | payer MEDICARE, OTHER ==
[~2024-10-09] VITALS: Ht 162.6 cm; Wt 45.0 kg
[~2024-10-09 17:04] MED LIST changes: +CLIN1CAP70 PO; -CLIN300C70 PO; +HYDR25TA4 PO; +ZOLM5TAB33 PO; -ZOLM5TAB4 PO
[2024-10-09 17:18] VITALS: BP 159/100; PULSE 80; RESP 20; O2SAT 99
--- NOTE | 2024-10-09 18:35 | ED.PDOC ---
History of Present Illness HPI Comments 69-year-old female with PMHx Anxiety, Asthma, COPD, Depression, HTN presents with a chief complaint of anxiety and hallucinations. Patient reports that she is anxious and just recently saw her doctor who prescribed her Xanax. Patient reports that she cannot take Xanax and is requesting Ativan. Patient mentions that she is blind, but is having visual hallucinations of trees moving and children laughing at her. Patient reports that she cannot take Benadryl, Hydroxyzine, or Xanax and needs Ativan. PSHx tubal ligation. Chief Complaint: Anxiety Time Seen by MD: 18:26 Primary Care Provider: JEANNIE Reviewed Notes: Medications, Allergies Allergies: Coded Allergies: NO KNOWN ALLERGIES (Unverified , 10/17/23) Home Meds Active Scripts Hydrochlorothiazide (Hydrochlorothiazide) 25 Mg Tab, 1 TAB PO DAILY for 10 Days, #10 TAB 5 Refills Prov:MADELYN KIM DO 11/24/23 Dexamethasone (Decadron) 4 Mg Tb, 8 MG PO DAILY for 9 Days, #18 TAB Prov:MADELYN KIM DO 10/18/23 Azithromycin (Azithromycin) 250 Mg Tab, 250 MG PO DAILY for 5 Days, #6 TAB Prov:MADELYN KIM DO 10/18/23 Acetaminophen (Tylenol Extra Strength) 500 Mg Tab, 500 MG PO TID, #20 TAB Prov:JENNIFER ESPAÑA MD 05/09/23 Zolmitriptan (Zomig) 5 Mg Tab, 5 MG PO BID, #14 TAB Prov:JENNIFER ESPAÑA MD 05/09/23 Metoclopramide Hcl (Reglan) 10 Mg Tab, 10 MG PO TID, #30 TAB Prov:JENNIFER ESPAÑA MD 05/09/23 Acetaminophen W/ Codeine (Tylenol W/Cod #3) 1 Tab Tb, 1 TAB PO QIDP, #10 TAB 0 Refills Prov:CECE NINA 04/27/23 Amoxicillin & Pot Clavulanate (Amoxicillin/Potassium Cla) 875 Mg Tab, 1 TAB PO BID for 7 Days, #14 TAB 0 Refills Prov:CECE NINA 04/27/23 Hydrocodone-Acetaminophen (Hydrocodone Bitartrate/AC 5-325 mg) 1 Tab Tab, 1 TAB PO BID, #10 TAB Prov:CHUCKY KENNEDY 04/17/23 Clindamycin Hcl (Clindamycin Hcl) 300 Mg Cap, 1 CAP PO TID, #30 CAP Prov:CHUCKY KENNEDY 04/17/23 Acetaminophen (Tylenol 8 Hour Arthritis) 650 Mg Tab, 650 MG PO TID, #30 TAB Prov:CHUCKY KENNEDY 03/12/23 Clindamycin Hcl (Clindamycin Hcl) 300 Mg Cap, 1 CAP PO TID, #30 CAP Prov:CHUCKY KENNEDY 03/12/23 Hydroxyzine Pamoate (Vistaril) 25 Mg Cap, 1 CAP PO BID, #20 CAP Prov:CHUCKY KENNEDY 01/09/23 Metoclopramide Hcl (Reglan) 10 Mg Tab, 10 MG PO BID for 10 Days, #20 TAB Prov:SHARON PUTNAM MD 07/08/22 Hydrocodone-Acetaminophen (Hydrocodone Bitartrate/AC 5-325 mg) 1 Tab Tab, 1 TAB PO BID for 5 Days, #10 TAB Prov:SHARON PUTNAM MD 07/08/22 Naproxen (NAPROSYN TABLET) 500 Mg Tb, 1 TAB PO BID for 5 Days, #10 TAB 1 Refill Prov:SHARON PUTNAM MD 07/08/22 Cyclobenzaprine HCl (Cyclobenzaprine Hydrochlo) 5 Mg Tab, 5 MG PO TID for 5 Days, #15 TAB Prov:SHARON PUTNAM MD 07/08/22 Prednisone (Prednisone) 20 Mg Tab, 1 DOSE PO UD, #13 MG Take 60 mg by mouth daily x2 days then 40 mg daily x2 days then 20 mg daily x2 days then 10 mg daily x2 days Prov:SHEBA MCCOLLUM MD 04/03/22 Ipratropium Cosby (Ipratropium Cosby) 0.02 % Nika, 0.5 MG NEB Q6HR PRN, #120 DOSE Prov:SHEBA MCCOLLUM MD 04/03/22 Albuterol Sulfate (Ventolin) 2.5 Mg/0.5 Ml Nb, 2.5 MG NEB Q6HR PRN, #120 DOSE Prov:SHEBA MCCOLLUM MD 04/03/22 Prednisone (PREDNISONE) 1 Mg Tb, 4 TAB PO DAILY for 5 Days, #5 TAB 3 Refills Prov:TANIYA MOORE MD 03/19/22 Lorazepam (Ativan) 0.5 Mg Tab, 1 TAB PO BIDPRN PRN, #20 TAB Prov:SHEBA MCCOLLUM MD 09/13/21 Mirtazapine (Remeron) 15 Mg Tab, 7.5 MG PO HS PRN, #30 MG Prov:BIANKA CESAR MD 01/21/21 Escitalopram Oxalate (Lexapro) 10 Mg Tab, 2 TAB PO DAILY, #60 TAB Prov:BIANKA CESAR MD 01/21/21 Albuterol Sulfate (VENTOLIN MDI) 90 Mcg Ih, 90 MCG IN Q6HP PRN for 30 Days Prov:CHELE BORRERO MD 06/06/18 Reported Medications Quetiapine Fumerate (Seroquel) 25 Mg Tab, 25 MG PO QHS, TAB 07/20/18 Amlodipine Besylate (Amlodipine Besylate) 5 Mg Tab, 10 MG PO DAILY for 30 Days, MG 07/20/18 Lisinopril (Lisinopril) 20 Mg Tab, 20 MG PO DAILY for 30 Days, MG 07/20/18 Hydrocodone-Acetaminophen (Wade 5/325MG) 1 Tab Tb, 1 TAB PO Q6HP PRN, #20 TAB 06/06/18 Information Source: Patient Mode of Arrival: EMS Severity: Moderate Timing: Hours Duration: Since onset Prehospital treatment: None Past Medical History PAST MEDICAL HISTORY: Anxiety, Asthma, COPD, Depression, HTN Surgical History: Tubal Ligation SKY CAP History: No Pertinent SKY CAP History Family History Family History (Other): mother-Glaucoma Social History Smoker: Quit Less Than 1 Year Alcohol: Occasionally Drugs: Marijuana Lives In: Home Constitutional: denies: chills, diaphoresis, fatigue, fever, malaise, sweats, weakness, others EENTM: denies: blurred vision, double vision, ear bleeding, ear discharge, ear drainage, ear pain, ear ringing, eye pain, eye redness, hearing loss, mouth pain, mouth swelling, nasal discharge, nose bleeding, nose congestion, nose pain, photophobia, tearing, throat pain, throat swelling, voice changes, others Respiratory: denies: cough, hemoptysis, orthopnea, SOB at rest, shortness of breath, SOB with excertion, stridor, wheezing, others Cardiovascular: denies: chest pain, dizzy spells, diaphoresis, Dyspnea on exertion, edema, irregular heart beat, left arm pain, lightheadedness, palpitations, PND, syncope, others Gastrointestinal: denies: abdomen distended, abdominal pain, blood streaked bowels, constipated, diarrhea, dysphagia, difficulty swallowing, hematemesis, melena, nausea, poor appetite, poor fluid intake, rectal bleeding, rectal pain, vomiting, others Genitourinary: denies: abnormal vagina bleeding, burning, dyspareunia, dysuria, flank pain, frequency, hematuria, incontinence, pain, , vagina discharge, urgency, others Neurological: denies: dizziness, fainting, headache, left sided numbness, left sided weakness, numbness, paresthesia, pre-existing deficit, right sided numbness, right sided weakness, seizure, speech problems, tingling, tremors, weakness, others Musculoskeletal: denies: back pain, gout, joint pain, joint swelling, muscle pain, muscle stiffness, neck pain, others Integumetry: denies: bruises, change in color, change in hair/nails, dryness, laceration, lesions, lumps, rash, wounds, others Allergic/Immunocompromised: denies: Difficulty Healing, Frequent Infections, Hives, Itching, others Hematologic/Lymphatic: denies: anemia, blood clots, easy bleeding, easy bruising, swollen glands, others Endocrine: denies: excessive hunger, excessive sweating, excessive thirst, excessive urination, flushing, intolerance to cold, intolerance to heat, unexplained weight gain, unexplained weight loss, others Psychiatric: reports: anxiety, others (HALLUCINATIONS); denies: bipolar disorder, depression, hopeless, panic disorder, schizophrenia, sleepless, suicidal All Other Systems: Reviewed and Negative Physical Exam General Appearance: Mild Distress, Normal HEENT: Normal ENT Inspection, Pharynx Normal, TMs Normal Neck: Full Range of Motion, Non-Tender, Normal, Normal Inspection Respiratory: Chest Non-Tender, Lungs Clear, No Accessory Muscle Use, No Respiratory Distress, Normal Breath Sounds Cardiovascular: No Edema, No JVD, No Murmur, No Gallop, Normal Peripheral Pulses, Regular Rate/Rhythm Breast Exam: Deferred Gastrointestinal: No Organomegaly, Non Tender, No Pulsatile Mass, Normal Bowel Sounds, Soft Genitalia: Deferred Pelvic: Deferred Rectal: Deferred Extremities: No calf tenderness, Normal capillary refill, Normal inspection, Normal range of motion, Non-tender, No pedal edema Musculoskeletal : Apperance: Normal Neurologic: Alert, laborer cement gun placing II-XII nml as Tested, No Motor Deficits, Normal Affect, Normal Mood, No Sensory Deficits Cerebellar Function: Normal Reflexes: Normal Skin: Dry, Normal Color, Warm Lymphatic: No Adenopathy Was a procedure done? Was a procedure done?: No Differential Dx Considerations may include: Anxiety panic attack substance abuse X-Ray, Labs, Meds, VS Vital Signs Date Time Temp Pulse Resp B/P (MAP) Pulse Ox O2 Delivery O2 Flow Rate FiO2 10/09/24 17:18 97.9 80 20 159/100 (119) 99 This is a 69-year-old female who has a history of chronic pain syndrome panic a ttacks and substance abuse. She has been in rehabilitation for substance abuse in the past. She requesting Ativan. We had a long discussion and is willing to give her 1 mg while she is here but no prescription. She is to follow up at the crisis center in or psychiatrist for further evaluation and care. Time of 1ST Reevaluation: 18:56 Reevaluation 1ST: Unchanged Patient Education/Counseling: Diagnosis, Treatment, Prognosis Family Education/Counseling: No Family Present Departure 1 Departure Time of Disposition: 18:44 Impression: Primary Impression: Anxiety reaction Additional Impressions: Chronic pain syndrome Panic attacks Disposition: 01 HOME / SELF CARE / HOMELESS Condition: Stable Additional Instructions: Reassessed patient, vital signs stable. Denies any new symptoms. Patient is able to tolerate PO and ambulate/be mobile at their baseline without concern. Risks and benefits of all medications given or prescribed, if any, discussed. All lab work, imaging and diagnostic studies were reviewed by me. The patient was counseled extensively on my clinical impression, diagnosis, expected course of the disease, and plan, including their follow-up care. Will discharge patient. Patient instructed to follow up with Primary Care Physician within 24-48 hours. Strict return precautions given for further exacerbation of symptoms or for new symptoms. The patient was given the opportunity to ask questions and all questions were answered by myself and the nursing/tech staff. Patient is in agreement with the care plan. The patient verbally expressed understanding of the discharge instructions, including the reasons to return to the Emergency Department. Follow up at the crisis center your psychiatrist for further evaluation and care. Discharged With: Friend Critical Care Note Critical Care Time?: No Stability Stability form required: No I personally scribed for CARLA BOOTH MD ([email or web address]) on 10/09/24 at 18:35. Electronically submitted by Nabor Angela ([email or web address]). CARLA BOOTH MD Oct 09, 2024 18:35
[2024-10-09] MEDS: LORazepam 0.5 MG TAB PO ONE (19:41)
[2024-10-10] MEDS ORDERED: LEVO500T91 PO (05:12)
== END 2024-10-09 19:54 | disposition home or self-care (01) ==
LOC: EDUNIT# 17:04 → EDBD 17:04 → ER 17:04
DX: F41.1 Generalized anxiety disorder (principal); G89.4 Chronic pain syndrome; F41.0 Panic disorder [episodic paroxysmal anxiety]; J45.909 Unspecified asthma, uncomplicated; J44.9 Chronic obstructive pulmonary disease, unspecified; F32.9 Major depressive disorder, single episode, unspecified; I10 Essential (primary) hypertension; F15.90 Other stimulant use, unspecified, uncomplicated; Z98.890 Other specified postprocedural states; Z79.899 Other long term (current) drug therapy

== ENCOUNTER 2024-10-09 22:42 | Emergency (ER) | payer OTHER ==
[~2024-10-09] VITALS: Ht 152.4 cm; Wt 40.9 kg
--- NOTE | 2024-10-10 00:58 | ED.PDOC ---
History of Present Illness HPI Comments 69-year-old female with PMHx Blindness brought in by EMS presents with a chief complaint of hallucinations. Patient was just seen here at this facility x 2 hours ago and was complaining of anxiety. Patient was given Ativan and discharged home to follow up with her PMD. Patient is now complaining of visual hallucinations, however, patient is blind so unable to fully assess if hallucinations are valid or if patient is malingering for Ativan. Patient earlier stated that she "cannot take Benadryl, Hydroxyzine, Xanax because they don't work and give [her] hallucinations" and only wants to be prescribed Ativan. Patient insisted that she told her doctor that she wanted Ativan and nothing else. Patient is not in any distress at this time. Chief Complaint: Hallucinations Time Seen by MD: 00:40 Primary Care Provider: JEANNIE Reviewed Notes: Medications, Allergies Allergies: Coded Allergies: NO KNOWN ALLERGIES (Unverified , 10/17/23) Home Meds Active Scripts Hydrochlorothiazide (Hydrochlorothiazide) 25 Mg Tab, 1 TAB PO DAILY for 10 Days, #10 TAB 5 Refills Prov:MADELYN KIM DO 11/24/23 Dexamethasone (Decadron) 4 Mg Tb, 8 MG PO DAILY for 9 Days, #18 TAB Prov:MADELYN KIM DO 10/18/23 Azithromycin (Azithromycin) 250 Mg Tab, 250 MG PO DAILY for 5 Days, #6 TAB Prov:MADELYN KIM DO 10/18/23 Acetaminophen (Tylenol Extra Strength) 500 Mg Tab, 500 MG PO TID, #20 TAB Prov:JENNIFER ESPAÑA MD 05/09/23 Zolmitriptan (Zomig) 5 Mg Tab, 5 MG PO BID, #14 TAB Prov:JENNIFER ESPAÑA MD 05/09/23 Metoclopramide Hcl (Reglan) 10 Mg Tab, 10 MG PO TID, #30 TAB Prov:JENNIFER ESPAÑA MD 05/09/23 Acetaminophen W/ Codeine (Tylenol W/Cod #3) 1 Tab Tb, 1 TAB PO QIDP, #10 TAB 0 Refills Prov:CECE NINA 04/27/23 Amoxicillin & Pot Clavulanate (Amoxicillin/Potassium Cla) 875 Mg Tab, 1 TAB PO BID for 7 Days, #14 TAB 0 Refills Prov:CECE NINA 04/27/23 Hydrocodone-Acetaminophen (Hydrocodone Bitartrate/AC 5-325 mg) 1 Tab Tab, 1 TAB PO BID, #10 TAB Prov:CHUCKY KENNEDY 04/17/23 Clindamycin Hcl (Clindamycin Hcl) 300 Mg Cap, 1 CAP PO TID, #30 CAP Prov:CHUCKY KENNEDY 04/17/23 Acetaminophen (Tylenol 8 Hour Arthritis) 650 Mg Tab, 650 MG PO TID, #30 TAB Prov:CHUCKY KENNEDY 03/12/23 Clindamycin Hcl (Clindamycin Hcl) 300 Mg Cap, 1 CAP PO TID, #30 CAP Prov:CHUCKY KENNEDY 03/12/23 Hydroxyzine Pamoate (Vistaril) 25 Mg Cap, 1 CAP PO BID, #20 CAP Prov:CHUCKY KENENDY 01/09/23 Metoclopramide Hcl (Reglan) 10 Mg Tab, 10 MG PO BID for 10 Days, #20 TAB Prov:SHARON PUTNAM MD 07/08/22 Hydrocodone-Acetaminophen (Hydrocodone Bitartrate/AC 5-325 mg) 1 Tab Tab, 1 TAB PO BID for 5 Days, #10 TAB Prov:SHARON PUTNAM MD 07/08/22 Naproxen (NAPROSYN TABLET) 500 Mg Tb, 1 TAB PO BID for 5 Days, #10 TAB 1 Refill Prov:SHARON PUTNAM MD 07/08/22 Cyclobenzaprine HCl (Cyclobenzaprine Hydrochlo) 5 Mg Tab, 5 MG PO TID for 5 Days, #15 TAB Prov:SHARON PUTNAM MD 07/08/22 Prednisone (Prednisone) 20 Mg Tab, 1 DOSE PO UD, #13 MG Take 60 mg by mouth daily x2 days then 40 mg daily x2 days then 20 mg daily x2 days then 10 mg daily x2 days Prov:SHEBA MCCOLLUM MD 04/03/22 Ipratropium [place] (Ipratropium [place]) 0.02 % Nika, 0.5 MG NEB Q6HR PRN, #120 DOSE Prov:SHEBA MCCOLLUM MD 04/03/22 Albuterol Sulfate (Ventolin) 2.5 Mg/0.5 Ml Nb, 2.5 MG NEB Q6HR PRN, #120 DOSE Prov:SHEBA MCCOLLUM MD 04/03/22 Prednisone (PREDNISONE) 1 Mg Tb, 4 TAB PO DAILY for 5 Days, #5 TAB 3 Refills Prov:TANIYA MOORE MD 03/19/22 Lorazepam (Ativan) 0.5 Mg Tab, 1 TAB PO BIDPRN PRN, #20 TAB Prov:SHEBA MCCOLLUM MD 09/13/21 Mirtazapine (Remeron) 15 Mg Tab, 7.5 MG PO HS PRN, #30 MG Prov:BIANKA CESAR MD 01/21/21 Escitalopram Oxalate (Lexapro) 10 Mg Tab, 2 TAB PO DAILY, #60 TAB Prov:BIANKA CESAR MD 01/21/21 Albuterol Sulfate (VENTOLIN MDI) 90 Mcg Ih, 90 MCG IN Q6HP PRN for 30 Days Prov:CHELE BORRERO MD 06/06/18 Reported Medications Quetiapine Fumerate (Seroquel) 25 Mg Tab, 25 MG PO QHS, TAB 07/20/18 Amlodipine Besylate (Amlodipine Besylate) 5 Mg Tab, 10 MG PO DAILY for 30 Days, MG 07/20/18 Lisinopril (Lisinopril) 20 Mg Tab, 20 MG PO DAILY for 30 Days, MG 07/20/18 Hydrocodone-Acetaminophen ([place] 5/325MG) 1 Tab Tb, 1 TAB PO Q6HP PRN, #20 TAB 06/06/18 Information Source: Patient Mode of Arrival: EMS Severity: Moderate Timing: Minutes Duration: Since onset Prehospital treatment: None Past Medical History PAST MEDICAL HISTORY: Anxiety, Asthma, COPD, Depression, HTN Surgical History: Tubal Ligation COMMUNICABLE DISEASE SPECIALIST History: No Pertinent COMMUNICABLE DISEASE SPECIALIST History Family History Family History (Other): mother-Glaucoma Social History Smoker: Quit Less Than 1 Year Alcohol: Occasionally Drugs: Marijuana Lives In: Home Constitutional: denies: chills, diaphoresis, fatigue, fever, malaise, sweats, weakness, others EENTM: denies: blurred vision, double vision, ear bleeding, ear discharge, ear drainage, ear pain, ear ringing, eye pain, eye redness, hearing loss, mouth pain, mouth swelling, nasal discharge, nose bleeding, nose congestion, nose pain, photophobia, tearing, throat pain, throat swelling, voice changes, others Respiratory: denies: cough, hemoptysis, orthopnea, SOB at rest, shortness of breath, SOB with excertion, stridor, wheezing, others Cardiovascular: denies: chest pain, dizzy spells, diaphoresis, Dyspnea on exertion, edema, irregular heart beat, left arm pain, lightheadedness, palpitations, PND, syncope, others Gastrointestinal: denies: abdomen distended, abdominal pain, blood streaked bowels, constipated, diarrhea, dysphagia, difficulty swallowing, hematemesis, melena, nausea, poor appetite, poor fluid intake, rectal bleeding, rectal pain, vomiting, others Genitourinary: denies: abnormal vagina bleeding, burning, dyspareunia, dysuria, flank pain, frequency, hematuria, incontinence, pain, , vagina discharge, urgency, others Neurological: denies: dizziness, fainting, headache, left sided numbness, left sided weakness, numbness, paresthesia, pre-existing deficit, right sided numbness, right sided weakness, seizure, speech problems, tingling, tremors, weakness, others Musculoskeletal: denies: back pain, gout, joint pain, joint swelling, muscle pain, muscle stiffness, neck pain, others Integumetry: denies: bruises, change in color, change in hair/nails, dryness, laceration, lesions, lumps, rash, wounds, others Allergic/Immunocompromised: denies: Difficulty Healing, Frequent Infections, Hives, Itching, others Hematologic/Lymphatic: denies: anemia, blood clots, easy bleeding, easy bruising, swollen glands, others Endocrine: denies: excessive hunger, excessive sweating, excessive thirst, excessive urination, flushing, intolerance to cold, intolerance to heat, unexp lained weight gain, unexplained weight loss, others Psychiatric: reports: others (HALLUCINATIONS); denies: anxiety, bipolar disorder, depression, hopeless, panic disorder, schizophrenia, sleepless, suicidal All Other Systems: Reviewed and Negative Physical Exam General Appearance: Mild Distress, Normal HEENT: Normal ENT Inspection, Pharynx Normal, TMs Normal Neck: Full Range of Motion, Non-Tender, Normal, Normal Inspection Respiratory: Chest Non-Tender, Lungs Clear, No Accessory Muscle Use, No Respiratory Distress, Normal Breath Sounds Cardiovascular: No Edema, No JVD, No Murmur, No Gallop, Normal Peripheral Pulses, Regular Rate/Rhythm Breast Exam: Deferred Gastrointestinal: No Organomegaly, Non Tender, No Pulsatile Mass, Normal Bowel Sounds, Soft Genitalia: Deferred Pelvic: Deferred Rectal: Deferred Extremities: No calf tenderness, Normal capillary refill, Normal inspection, Normal range of motion, Non-tender, No pedal edema Musculoskeletal : Apperance: Normal Neurologic: Alert, transplanter II-XII nml as Tested, No Motor Deficits, Normal Affect, Normal Mood, No Sensory Deficits Cerebellar Function: Normal Reflexes: Normal Skin: Dry, Normal Color, Warm Lymphatic: No Adenopathy Was a procedure done? Was a procedure done?: No Differential Dx Considerations may include: Substance abuse acute psychosis X-Ray, Labs, Meds, VS Vital Signs Date Time Temp Pulse Resp B/P (MAP) Pulse Ox O2 Delivery O2 Flow Rate FiO2 10/10/24 03:30 97.7 88 16 151/97 (115) 99 97.7 10/10/24 03:30 88 16 99 Room Air* 0 21 10/09/24 23:00 97.8 85 16 157/95 (115) 96 Lab Test 10/10/24 03:06 10/10/24 01:53 Range/Units Urine Color Yellow Yellow Urine Clarity Clear Clear Urine pH 6.0 5.0-9.0 Urine Specific [place] 1.022 1.001-1.035 Urine Protein 2+ H Negative Urine Ketones 2+ H Negative Urine Blood Negative Negative /uL Urine Nitrite Negative Negative Urine Bilirubin Negative Negative Urine Urobilinogen Normal Negative mg/dL Urine Leukocyte Esterase 1+ Negative /uL Urine RBC 3 0 - 4 /hpf Urine WBC 6 0 - 5 /hpf Urine Squamous Epithelial Cells Few <5 /hpf Urine Bacteria Few H None Seen /hpf Urine Mucus Few None Seen Urine Glucose Normal Normal mg/dL Urine Opiates Screen Neg NEGATIVE Urine Fentanyl Screen Neg NEGATIVE Urine Barbiturates Screen Neg NEGATIVE Urine Phencyclidine Screen Neg NEGATIVE Urine Amphetamines Screen Neg NEGATIVE Urine Benzodiazepines Screen Neg NEGATIVE Urine Cocaine Screen Neg NEGATIVE Urine Cannabinoids Screen Pos NEGATIVE White Blood Count 5.3 4.4-10.8 10^3/uL Red Blood Count 5.00 4.0-5.20 10^6/uL Hemoglobin 16.1 12.2-16.2 g/dL Hematocrit 48.4 H 36.0-46.0 % Mean Corpuscular Volume 96.8 80.0-100.0 fL Mean Corpuscular Hemoglobin 32.2 H 28.0-32.0 pg Mean Corpuscular Hemoglobin Concent 33.2 32.0-36.0 g/dL Red Cell Distribution Width 14.8 H 11.8-14.3 % Platelet Count 246 140-450 10^3/uL Mean Platelet Volume 7.1 6.9-10.8 fL Neutrophils (%) (Auto) 69.8 37.0-80.0 % Lymphocytes (%) (Auto) 18.8 10.0-50.0 % Monocytes (%) (Auto) 10.8 0.0-12.0 % Eosinophils (%) (Auto) 0.3 0.0-7.0 % Basophils (%) (Auto) 0.3 0.0-2.0 % Neutrophils # (Auto) 3.7 1.6-8.6 10 ^3/uL Lymphocytes # (Auto) 1.0 0.4-5.4 10 ^3/uL Monocytes # (Auto) 0.6 0-1.3 10 ^3/uL Eosinophils # (Auto) 0 0-0.8 10 ^3/uL Basophils # (Auto) 0 0-0.2 10 ^3/uL Nucleated Red Blood Cells 0.1 % Sodium Level 144 136-145 mmol/L Potassium Level 2.8 L 3.5-5.1 mmol/L Chloride Level 109 H 98-107 mmol/L Carbon Dioxide Level 26 20-31 mmol/L Anion Gap 9 5-15 Blood Urea Nitrogen 7 L 9-23 mg/dL Creatinine 0.79 0.550-1.02 mg/dL Glomerular Filtration Rate Calc 80 >90 mL/min BUN/Creatinine Ratio 8.9 L 10.0-20.0 Serum Glucose 111 H 74-106 mg/dL Calcium Level 10.5 H 8.7-10.4 mg/dL Total Bilirubin 0.4 0.2-1.0 mg/dL Aspartate Amino Transferase (AST) 17 13-40 U/L Alanine Aminotransferase (ALT) 10 7-40 U/L Alkaline Phosphatase 77 46-116 U/L Total Protein 8.1 5.7-8.2 g/dL Albumin 4.6 3.2-4.8 g/dL Salicylates Level 3.0 -30 mg/dL Acetaminophen Level < 2.0 L 10.0-20.0 UG/ML Plasma/Serum Blood Alcohol < 3.0 <10 mg/dL UA reveals urinary tract infection. UDS revealed positive for marijuana. Alcohol level is less than three. CBC and CMP are essentially normal. However the potassium is 2.8. Patient will be discharged to follow up with the primary care physician in 1-2 days. Time of 1ST Reevaluation: 01:10 Reevaluation 1ST: Unchanged Patient Education/Counseling: Diagnosis, Treatment, Prognosis Family Education/Counseling: No Family Present Departure 1 Departure Time of Disposition: 05:06 Impression: Primary Impression: Hallucination Additional Impressions: Substance abuse Hypokalemia Anxiety Disposition: 04 [facility] Condition: Stable Additional Instructions: Reassessed patient, vital signs stable. Denies any new symptoms. Patient is able to tolerate PO and ambulate/be mobile at their baseline without concern. Risks and benefits of all medications given or prescribed, if any, discussed. All lab work, imaging and diagnostic studies were reviewed by me. The patient was counseled extensively on my clinical impression, diagnosis, expected course of the disease, and plan, including their follow-up care. Will discharge patient. Patient instructed to follow up with Primary Care Physician within 24-48 hours. Strict return precautions given for further exacerbation of symptoms or for new symptoms. The patient was given the opportunity to ask questions and all questions were answered by myself and the nursing/tech staff. Patient is in agreement with the care plan. The patient verbally expressed understanding of the discharge instructions, including the reasons to return to the Emergency Department. Discharged With: Self Critical Care Note Critical Care Time?: No Stability Stability form required: No I personally scribed for CARLA BOOTH MD ([email or web address]) on 10/10/24 at 00:58. Electronically submitted by Nabor Angela ([email or web address]). CARLA BOOTH MD Oct 10, 2024 00:58
[2024-10-10 02:07] LABS: Basophils # (auto) 0 10 ^3/uL (0-0.2); Basophils % (auto) 0.3 % (0.0-2.0); Eosinophils # (auto) 0 10 ^3/uL (0-0.8); Eosinophils % (auto) 0.3 % (0.0-7.0); Hematocrit 48.4 % (36.0-46.0); Hemoglobin 16.1 g/dL (12.2-16.2); Lymphocytes % (auto) 18.8 % (10.0-50.0); Mean Corpuscular Hemoglobin 32.2 pg (28.0-32.0); Mean Corpuscular Hgb Conc. 33.2 g/dL (32.0-36.0); Mean Corpuscular Volume 96.8 fL (80.0-100.0); Monocytes # (auto) 0.6 10 ^3/uL (0-1.3); Monocytes % (auto) 10.8 % (0.0-12.0); Neutrophils # (auto) 3.7 10 ^3/uL (1.6-8.6); Neutrophils % (auto) 69.8 % (37.0-80.0); Nucleated Red Blood Cells % 0.1 %; Platelet Count (auto) 246 10^3/uL (140-450); Red Cell Distribution Width 14.8 % (11.8-14.3); White Blood Cell 5.3 10^3/uL (4.4-10.8)
[2024-10-10 02:25] LABS: Alanine Aminotransferase 10 U/L (7-40); Albumin 4.6 g/dL (3.2-4.8); Alkaline Phosphatase 77 U/L (46-116); Anion Gap 9 (5-15); Aspartate Aminotransferase 17 U/L (13-40); BUN/Creatinine Ratio 8.9 (10.0-20.0); Bilirubin, Total 0.4 mg/dL (0.2-1.0); Carbon Dioxide 26 mmol/L (20-31); Sodium 144 mmol/L (136-145); Total Protein 8.1 g/dL (5.7-8.2)
[2024-10-10 02:27] LABS: Acetaminophen < 2.0 UG/ML (10.0-20.0); Blood Alcohol < 3.0 mg/dL (<10); Blood Urea Nitrogen 7 mg/dL (9-23); Calcium 10.5 mg/dL (8.7-10.4); Chloride 109 mmol/L (98-107); Glucose 111 mg/dL (74-106); Potassium 2.8 mmol/L (3.5-5.1)
[2024-10-10 03:30] VITALS: PULSE 88; RESP 16; TEMP 97.7; O2SAT 99
[2024-10-10 03:45] LABS: Urine Bacteria FEW /hpf (None Seen); Urine Blood Negative /uL (Negative); Urine Clarity Clear (Clear); Urine Color Yellow (Yellow); Urine Mucus FEW (None Seen); Urine Protein, UAD 2+ (Negative); Urine Specific Gravity 1.022 (1.001-1.035); Urine Urobilinogen Normal (Negative); Urine WBC 6 /hpf (0 - 5)
[2024-10-10 03:54] LABS: Cannabinoid Screen, Urine Pos (NEGATIVE)
[2024-10-10 03:57] LABS: Amphetamine Screen, Urine Neg (NEGATIVE); Barbiturate Scree,Urine Neg (NEGATIVE); Benzodiazephine Screen, Urine Neg (NEGATIVE); Cocaine Screen, Urine Neg (NEGATIVE); Opiate Scree,Urine Neg (NEGATIVE); Phencyclidine Screen, Urine Neg (NEGATIVE)
[2024-10-10] MEDS ORDERED: LEVO500T91 PO (05:12)
[2024-10-10] MEDS: POTASSIUM CHL 20 Meq TABLET PO ONE (05:24)
[2024-10-10 08:42] VITALS: PULSE 95; RESP 16; O2SAT 95
[2024-10-10 09:00] VITALS: BP 154/93; PULSE 77; RESP 14; O2SAT 98
== END 2024-10-10 09:37 | disposition home or self-care (01) ==
LOC: EDBD 22:42 → ER 22:42
DX: F19.10 Other psychoactive substance abuse, uncomplicated (principal); R44.1 Visual hallucinations; F41.1 Generalized anxiety disorder; E87.6 Hypokalemia; J44.9 Chronic obstructive pulmonary disease, unspecified; F32.9 Major depressive disorder, single episode, unspecified; I10 Essential (primary) hypertension; Z79.899 Other long term (current) drug therapy; Z98.890 Other specified postprocedural states
CPT/HCPCS: 36415; 80053; 80307; 80320; 80329; 81001; 85025

== ENCOUNTER 2025-03-01 04:19 | Emergency (ER) | payer OTHER ==
[~2025-03-01] VITALS: Ht 152.4 cm; Wt 45.5 kg
[~2025-03-01 04:19] MED LIST changes: +LEVO500T91 PO
[2025-03-01] MEDS: ONDANSETRON ODT 4 MG TAB PO ONE ×2 (05:07→13:53)
[2025-03-01 05:08] LABS: Basophils # (auto) 0 10 ^3/uL (0-0.2); Basophils % (auto) 0.5 % (0.0-2.0); Eosinophils # (auto) 0 10 ^3/uL (0-0.8); Eosinophils % (auto) 0.4 % (0.0-7.0); Hematocrit 49.5 % (36.0-46.0); Hemoglobin 16.4 g/dL (12.2-16.2); Lymphocytes # (auto) 0.9 10 ^3/uL (0.4-5.4); Lymphocytes % (auto) 21.6 % (10.0-50.0); Mean Corpuscular Hemoglobin 31.3 pg (28.0-32.0); Mean Corpuscular Hgb Conc. 33.1 g/dL (32.0-36.0); Mean Corpuscular Volume 94.6 fL (80.0-100.0); Monocytes # (auto) 0.2 10 ^3/uL (0-1.3); Monocytes % (auto) 4.5 % (0.0-12.0); Neutrophils # (auto) 2.9 10 ^3/uL (1.6-8.6); Nucleated Red Blood Cells % 0.2 %; Platelet Count (auto) 208 10^3/uL (140-450); Red Blood Cells 5.23 10^6/uL (4.0-5.20); Red Cell Distribution Width 14.7 % (11.8-14.3)
[2025-03-01 05:24] LABS: Alanine Aminotransferase 11 U/L (7-40); Albumin 4.6 g/dL (3.2-4.8); Alkaline Phosphatase 75 U/L (46-116); Anion Gap 9 (5-15); Aspartate Aminotransferase 18 U/L (13-40); BUN/Creatinine Ratio 11.9 (10.0-20.0); Carbon Dioxide 22 mmol/L (20-31); Lipase 30 U/L (12-53); Potassium 3.7 mmol/L (3.5-5.1); Sodium 142 mmol/L (136-145); Total Protein 7.9 g/dL (5.7-8.2)
[2025-03-01 05:39] LABS: Bilirubin, Total 0.2 mg/dL (0.2-1.0); Blood Urea Nitrogen 8 mg/dL (9-23); Calcium 8.7 mg/dL (8.7-10.4); Chloride 111 mmol/L (98-107); Glucose 110 mg/dL (74-106)
--- NOTE | 2025-03-01 06:41 | ECG ---
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
--- NOTE | 2025-03-01 06:52 | ED.PDOC ---
GI ASSESSMENT HPI Comments 69 y/o F, with PMHx of anxiety, depression, asthma, blindness, COPD, and HTN presents to the ED for CC of nausea/vomiting. Patient states, she has been experiencing nausea and vomiting onset, yesterday afternoon (02/28/25). Patient reports, associated symptoms of a frontal headache. Patient comments taking Lisinopril and Amlodipine with no relief. Patient denies hematemesis, dizziness, weakness, or fatigue. No other ysmptoms or modifying factors present at this time. Chief Complaint: Nausea/Vomiting Time Seen by MD: 06:40 Primary Care Provider: JEANNIE Reviewed Notes: Nurses Notes, Medications, Allergies Allergies: Coded Allergies: NO KNOWN ALLERGIES (Unverified , 10/17/23) Home Meds Active Scripts Levofloxacin Hemihydrate (LEVAQUIN 500 MG) 500 Mg Tab, 500 MG PO DAILY for 7 Days, #7 TAB Prov:CARLA BOOTH MD 10/10/24 Hydrochlorothiazide (Hydrochlorothiazide) 25 Mg Tab, 1 TAB PO DAILY for 10 Days, #10 TAB 5 Refills Prov:MADELYN KIM DO 11/24/23 Dexamethasone (Decadron) 4 Mg Tb, 8 MG PO DAILY for 9 Days, #18 TAB Prov:MADELYN KIM DO 10/18/23 Azithromycin (Azithromycin) 250 Mg Tab, 250 MG PO DAILY for 5 Days, #6 TAB Prov:MADELYN KIM DO 10/18/23 Acetaminophen (Tylenol Extra Strength) 500 Mg Tab, 500 MG PO TID, #20 TAB Prov:JENNIFER ESPAÑA MD 05/09/23 Zolmitriptan (Zomig) 5 Mg Tab, 5 MG PO BID, #14 TAB Prov:JENNIFER ESPAÑA MD 05/09/23 Metoclopramide Hcl (Reglan) 10 Mg Tab, 10 MG PO TID, #30 TAB Prov:JENNIFER ESPAÑA MD 05/09/23 Acetaminophen W/ Codeine (Tylenol W/Cod #3) 1 Tab Tb, 1 TAB PO QIDP, #10 TAB 0 Refills Prov:CECE NINA 04/27/23 Amoxicillin & Pot Clavulanate (Amoxicillin/Potassium Cla) 875 Mg Tab, 1 TAB PO B ID for 7 Days, #14 TAB 0 Refills Prov:CECE NINA 04/27/23 Hydrocodone-Acetaminophen (Hydrocodone Bitartrate/AC 5-325 mg) 1 Tab Tab, 1 TAB PO BID, #10 TAB Prov:CHUCKY KENNEDY 04/17/23 Clindamycin Hcl (Clindamycin Hcl) 300 Mg Cap, 1 CAP PO TID, #30 CAP Prov:CHUCKY KENNEDY 04/17/23 Acetaminophen (Tylenol 8 Hour Arthritis) 650 Mg Tab, 650 MG PO TID, #30 TAB Prov:CHUCKY KENNEDY 03/12/23 Clindamycin Hcl (Clindamycin Hcl) 300 Mg Cap, 1 CAP PO TID, #30 CAP Prov:CHUCKY KENNEDY 03/12/23 Hydroxyzine Pamoate (Vistaril) 25 Mg Cap, 1 CAP PO BID, #20 CAP Prov:CHUCKY KENNEDY 01/09/23 Metoclopramide Hcl (Reglan) 10 Mg Tab, 10 MG PO BID for 10 Days, #20 TAB Prov:SHARON PUTNAM MD 07/08/22 Hydrocodone-Acetaminophen (Hydrocodone Bitartrate/AC 5-325 mg) 1 Tab Tab, 1 TAB PO BID for 5 Days, #10 TAB Prov:SHARON PUTNAM MD 07/08/22 Naproxen (NAPROSYN TABLET) 500 Mg Tb, 1 TAB PO BID for 5 Days, #10 TAB 1 Refill Prov:SHARON PUTNAM MD 07/08/22 Cyclobenzaprine HCl (Cyclobenzaprine Hydrochlo) 5 Mg Tab, 5 MG PO TID for 5 Days, #15 TAB Prov:SHARON PUTNAM MD 07/08/22 Prednisone (Prednisone) 20 Mg Tab, 1 DOSE PO UD, #13 MG Take 60 mg by mouth daily x2 days then 40 mg daily x2 days then 20 mg daily x2 days then 10 mg daily x2 days Prov:SHEBA MCCOLLUM MD 04/03/22 Ipratropium [place] (Ipratropium [place]) 0.02 % Nika, 0.5 MG NEB Q6HR PRN, #120 DOSE Prov:SHEBA MCCOLLUM MD 04/03/22 Albuterol Sulfate (Ventolin) 2.5 Mg/0.5 Ml Nb, 2.5 MG NEB Q6HR PRN, #120 DOSE Prov:SHEBA MCCOLLUM MD 04/03/22 Prednisone (PREDNISONE) 1 Mg Tb, 4 TAB PO DAILY for 5 Days, #5 TAB 3 Refills Prov:TANIYA MOORE MD 03/19/22 Lorazepam (Ativan) 0.5 Mg Tab, 1 TAB PO BIDPRN PRN, #20 TAB Prov:SHEBA MCCOLLUM MD 09/13/21 Mirtazapine (Remeron) 15 Mg Tab, 7.5 MG PO HS PRN, #30 MG Prov:BIANKA CESAR MD 01/21/21 Escitalopram Oxalate (Lexapro) 10 Mg Tab, 2 TAB PO DAILY, #60 TAB Prov:BIANKA CESAR MD 01/21/21 Albuterol Sulfate (VENTOLIN MDI) 90 Mcg Ih, 90 MCG IN Q6HP PRN for 30 Days Prov:CHELE BORRERO MD 06/06/18 Reported Medications Quetiapine Fumerate (Seroquel) 25 Mg Tab, 25 MG PO QHS, TAB 07/20/18 Amlodipine Besylate (Amlodipine Besylate) 5 Mg Tab, 10 MG PO DAILY for 30 Days, MG 07/20/18 Lisinopril (Lisinopril) 20 Mg Tab, 20 MG PO DAILY for 30 Days, MG 07/20/18 Hydrocodone-Acetaminophen ([place] 5/325MG) 1 Tab Tb, 1 TAB PO Q6HP PRN, #20 TAB 06/06/18 Information Source: Patient Mode of Arrival: EMS Timing: Hours Duration: Since onset Prehospital treatment: None Quality: None Vomitus: Watery Stool: Normal Severity: Moderate Recent Hx of: None Pain Location: None Modifying Factors: Nothing Associated sign and symptoms: Nausea, Vomiting Past Medical History PAST MEDICAL HISTORY: Anxiety, Asthma, COPD, Depression, HTN Surgical History: Tubal Ligation SANE RN History: No Pertinent SANE RN History Family History Family History (Other): mother-Glaucoma Social History Smoker: Quit Less Than 1 Year Alcohol: Occasionally Drugs: Marijuana Lives In: Home Constitutional: denies: chills, diaphoresis, fatigue, fever, malaise, sweats, weakness, others EENTM: denies: blurred vision, double vision, ear bleeding, ear discharge, ear drainage, ear pain, ear ringing, eye pain, eye redness, hearing loss, mouth pain, mouth swelling, nasal discharge, nose bleeding, nose congestion, nose pain, photophobia, tearing, throat pain, throat swelling, voice changes, others Respiratory: denies: cough, hemoptysis, orthopnea, SOB at rest, shortness of breath, SOB with excertion, stridor, wheezing, others Cardiovascular: denies: chest pain, dizzy spells, diaphoresis, Dyspnea on exertion, edema, irregular heart beat, left arm pain, lightheadedness, palpitations, PND, syncope, others Gastrointestinal: reports: nausea, vomiting; denies: abdomen distended, abdominal pain, blood streaked bowels, constipated, diarrhea, dysphagia, difficulty swallowing, hematemesis, melena, poor appetite, poor fluid intake, rectal bleeding, rectal pain, others Genitourinary: denies: abnormal vagina bleeding, burning, dyspareunia, dysuria, flank pain, frequency, hematuria, incontinence, pain, , vagina discharge, urgency, others Neurological: reports: headache; denies: dizziness, fainting, left sided numbness, left sided weakness, numbness, paresthesia, pre-existing deficit, right sided numbness, right sided weakness, seizure, speech problems, tingling, tremors, weakness, others Musculoskeletal: denies: back pain, gout, joint pain, joint swelling, muscle pain, muscle stiffness, neck pain, others Integumetry: denies: bruises, change in color, change in hair/nails, dryness, laceration, lesions, lumps, rash, wounds, others Allergic/Immunocompromised: denies: Difficulty Healing, Frequent Infections, Hives, Itching, others Hematologic/Lymphatic: denies: anemia, blood clots, easy bleeding, easy bruising, swollen glands, others Endocrine: denies: excessive hunger, excessive sweating, excessive thirst, excessive urination, flushing, intolerance to cold, intolerance to heat, unexplained weight gain, unexplained weight loss, others Psychiatric: denies: anxiety, bipolar disorder, depression, hopeless, panic disorder, schizophrenia, sleepless, suicidal, others All Other Systems: Reviewed and Negative Physical Exam General Appearance: No Apparent Distress, Normal HEENT: Normal ENT Inspection, Pharynx Normal Neck: Full Range of Motion, Non-Tender, Normal, Normal Inspection Respiratory: Chest Non-Tender, Lungs Clear, No Accessory Muscle Use, No Respiratory Distress, Normal Breath Sounds Cardiovascular: No Edema, No Murmur, No Gallop, Normal Peripheral Pulses, Regular Rate/Rhythm Breast Exam: Deferred Gastrointestinal: No Organomegaly, Non Tender, No Pulsatile Mass, Normal Bowel Sounds, Soft Genitalia: Deferred Pelvic: Deferred Rectal: Deferred Extremities: No calf tenderness, Normal capillary refill, Normal inspection, Normal range of motion, Non-tender, No pedal edema Musculoskeletal : Apperance: Normal Neurologic: Alert, cloth designer II-XII nml as Tested, No Motor Deficits, Normal Affect, Normal Mood, No Sensory Deficits Cerebellar Function: Normal Reflexes: Normal Skin: Dry, Normal Color, Warm Lymphatic: No Adenopathy Was a procedure done? Was a procedure done?: No GI differential Dx Differential Diagnosis: Gastritis/PUD, Gastroenteritis, Electrolyte Imbalance, Food Poisoning, Bacterial, Viral X-Ray, Labs, Meds, VS Vital Signs Date Time Temp Pulse Resp B/P (MAP) Pulse Ox O2 Delivery O2 Flow Rate FiO2 03/01/25 10:00 70 14 158/65 (96) 96 03/01/25 09:00 70 14 137/70 (92) 96 03/01/25 08:43 64 03/01/25 08:41 66 13 158/98 (118) 96 03/01/25 07:27 97.9 67 16 158/98 (118) 96 97.9 03/01/25 04:41 Room Air* 0 21 03/01/25 04:41 98.9 71 18 188/93 (124) 98 98.9 03/01/25 04:27 98.9 71 18 188/93 (124) 98 98.9 03/01/25 04:23 65 Lab Test 03/01/25 04:46 Range/Units White Blood Count 4.0 L 4.4-10.8 10^3/uL Red Blood Count 5.23 H 4.0-5.20 10^6/uL Hemoglobin 16.4 H 12.2-16.2 g/dL Hematocrit 49.5 H 36.0-46.0 % Mean Corpuscular Volume 94.6 80.0-100.0 fL Mean Corpuscular Hemoglobin 31.3 28.0-32.0 pg Mean Corpuscular Hemoglobin Concent 33.1 32.0-36.0 g/dL Red Cell Distribution Width 14.7 H 11.8-14.3 % Platelet Count 208 140-450 10^3/uL Mean Platelet Volume 7.3 6.9-10.8 fL Neutrophils (%) (Auto) 73.0 37.0-80.0 % Lymphocytes (%) (Auto) 21.6 10.0-50.0 % Monocytes (%) (Auto) 4.5 0.0-12.0 % Eosinophils (%) (Auto) 0.4 0.0-7.0 % Basophils (%) (Auto) 0.5 0.0-2.0 % Neutrophils # (Auto) 2.9 1.6-8.6 10 ^3/uL Lymphocytes # (Auto) 0.9 0.4-5.4 10 ^3/uL Monocytes # (Auto) 0.2 0-1.3 10 ^3/uL Eosinophils # (Auto) 0 0-0.8 10 ^3/uL Basophils # (Auto) 0 0-0.2 10 ^3/uL Nucleated Red Blood Cells 0.2 % Sodium Level 142 136-145 mmol/L Potassium Level 3.7 3.5-5.1 mmol/L Chloride Level 111 H 98-107 mmol/L Carbon Dioxide Level 22 20-31 mmol/L Anion Gap 9 5-15 Blood Urea Nitrogen 8 L 9-23 mg/dL Creatinine 0.67 0.550-1.02 mg/dL Glomerular Filtration Rate Calc 93 >90 mL/min BUN/Creatinine Ratio 11.9 10.0-20.0 Serum Glucose 110 H 74-106 mg/dL Calcium Level 8.7 8.7-10.4 mg/dL Total Bilirubin 0.2 0.2-1.0 mg/dL Aspartate Amino Transferase (AST) 18 13-40 U/L Alanine Aminotransferase (ALT) 11 7-40 U/L Alkaline Phosphatase 75 46-116 U/L Total Protein 7.9 5.7-8.2 g/dL Albumin 4.6 3.2-4.8 g/dL Lipase 30 12-53 U/L Current Medications Medications (Trade) Dose Ordered Sig/Devon Route Start Time Stop Time Status Last Admin Metoclopramide HCl (Reglan Injection) 10 mg ONCE ONCE IV 03/01/25 06:45 03/01/25 06:46 DC 03/01/25 08:09 Sodium Chloride 1,000 ml @ 1,000 mls/hr Q1H ONCE IV 03/01/25 06:45 03/01/25 07:44 DC 03/01/25 08:12 Time of 1ST Reevaluation: 07:10 Reevaluation 1ST: Unchanged Patient Education/Counseling: Diagnosis, Treatment Family Education/Counseling: No Family Present Departure 1 Departure Time of Disposition: 10:38 (Patient likely with a migraine. Patient is feeling better after receiving fluids or medications. We will discharge patient home with follow up) Impression: Primary Impression: Migraine Qualified Codes: G43.109 - Migraine with aura, not intractable, without status migrainosus Disposition: 01 HOME / SELF CARE / HOMELESS Condition: Stable Additional Instructions: You likely had a migraine. You received medications in the ER. You can take tylenol and motrin as needed for pain. You should stay well rested and well hydrated. It is important to follow up with your regular doctor within one week. If your symptoms worsen or you have any other concerns then please return to the ER. Critical Care Note Critical Care Time?: No Stability Stability form required: No Heart Score Heart Score: Heart Score Response (Comments) Value History N/A 0 EKG N/A 0 Age N/A 0 Risk Factors N/A 0 Troponin N/A 0 Total 0 I personally scribed for KANIKA SARAVIA MD ([email or web address]) on 03/01/25 at 06:52. Electronically submitted by Tita Lynch ([email or web address]). KANIKA SARAVIA MD March 01, 2025 06:52
[2025-03-01 07:27] VITALS: TEMP 97.9
[2025-03-01] MEDS: ACETAMINOPHEN 325 MG TAB PO ONE (08:09)
[2025-03-01] MEDS: METOCLOPRAMIDE HCL 5MG/ml INJ 2ml VIAL IV ONE (08:09)
[2025-03-01] MEDS: SODIUM CHLORIDE 0.9% 1,000 ML IV ONE (08:12)
--- NOTE | 2025-03-01 10:10 | DVH ---
Headache, vomiting. CLINICAL INFORMATION: 69 years old, Female; headache vomiting. TECHNIQUE: Axial imaging was obtained through the brain without contrast. Coronal and sagittal reform atted images were obtained, reviewed, and stored. Images were reviewed in brain and bone windows. Al l CT scans at this medical facility are performed using dose modulation techniques as appropriate to a performed exam including the following: Automated exposure control was utilized; adjustment of the MA and/or KV according to patient size; and use of iterative reconstruction technique. CTDIvol = 52.8 2 mGy DLP = 1041.0 mGy-cm COMPARISON: CT HEAD WITHOUT CONTRAST on DOS: 05/09/23, CT HEAD WITHOUT CONTRAST on DOS: 04/27/23, HEAD W ITHOUT CONTRAST on DOS: 07/08/22 FINDINGS: There is no acute intracranial hemorrhage. No mass effect or midline shift. Scattered areas of hypoattenuation are seen in the periventricular and subcortical white matter, which are nonspecif ic but most likely sequelae of small vessel ischemic disease. The ventricles and sulci are within nor mal limits in size for age. Basal cisterns are patent. The calvarium is unremarkable. Paranasal sinu ses and mastoid air cells are clear. Stable appearing postsurgical changes involving both globes. IMPRESSION: 1. No CT evidence of acute intracranial abnormality. 2. Nonacute findings as described above.
[2025-03-01] MEDS: ONDANSETRON HCL 4 MG/2 ML VIAL IV ONE (11:19)
[2025-03-01] MEDS: KETOROLAC TROMETH 30 MG/ML 1ML VIAL IV ONE (12:02)
[2025-03-01] MEDS ORDERED: HYDROcodone-ACET 5/325MG TAB PO ONE (13:00)
[2025-03-01] MEDS ORDERED: ONDANSETRON HCL 4 MG/2 ML VIAL IV ONE (13:00)
--- NOTE | 2025-03-01 13:06 | DVHINCON2 ---
Date Seen: March 01, 2025 Family History: Asthma G8 MOTHER, Onset:Unknown Deep venous thrombosis G8 MOTHER, Onset:Unknown Diabetes mellitus G8 BROTHER, Onset:Unknown FH: pancreatic cancer G8 BROTHER, Onset:Unknown Glaucoma G8 MOTHER, Onset:Unknown Allergies: Coded Allergies: NO KNOWN ALLERGIES (Unverified , 10/17/23) Home Meds Active Scripts Levofloxacin Hemihydrate (LEVAQUIN 500 MG) 500 Mg Tab, 500 MG PO DAILY for 7 Days, #7 TAB Prov:CARLA BOOTH MD 10/10/24 Hydrochlorothiazide (Hydrochlorothiazide) 25 Mg Tab, 1 TAB PO DAILY for 10 Days, #10 TAB 5 Refills Prov:MADELYN KIM DO 11/24/23 Dexamethasone (Decadron) 4 Mg Tb, 8 MG PO DAILY for 9 Days, #18 TAB Prov:MADELYN KIM DO 10/18/23 Azithromycin (Azithromycin) 250 Mg Tab, 250 MG PO DAILY for 5 Days, #6 TAB Prov:MADELYN KIM DO 10/18/23 Acetaminophen (Tylenol Extra Strength) 500 Mg Tab, 500 MG PO TID, #20 TAB Prov:JENNIFER ESPAÑA MD 05/09/23 Zolmitriptan (Zomig) 5 Mg Tab, 5 MG PO BID, #14 TAB Prov:JENNIFER ESPAÑA MD 05/09/23 Metoclopramide Hcl (Reglan) 10 Mg Tab, 10 MG PO TID, #30 TAB Prov:JENNIFER ESPAÑA MD 05/09/23 Acetaminophen W/ Codeine (Tylenol W/Cod #3) 1 Tab Tb, 1 TAB PO QIDP, #10 TAB 0 Refills Prov:CECE NINA 04/27/23 Amoxicillin & Pot Clavulanate (Amoxicillin/Potassium Cla) 875 Mg Tab, 1 TAB PO BID for 7 Days, #14 TAB 0 Refills Prov:CECE NINA 04/27/23 Hydrocodone-Acetaminophen (Hydrocodone Bitartrate/AC 5-325 mg) 1 Tab Tab, 1 TAB PO BID, #10 TAB Prov:CHUCKY KENNEDY 04/17/23 Clindamycin Hcl (Clindamycin Hcl) 300 Mg Cap, 1 CAP PO TID, #30 CAP Prov:CHUCKY KENNEDY 04/17/23 Acetaminophen (Tylenol 8 Hour Arthritis) 650 Mg Tab, 650 MG PO TID, #30 TAB Prov:CHUCKY KENNEDY 03/12/23 Clindamycin Hcl (Clindamycin Hcl) 300 Mg Cap, 1 CAP PO TID, #30 CAP Prov:CHUCKY KENNEDY 03/12/23 Hydroxyzine Pamoate (Vistaril) 25 Mg Cap, 1 CAP PO BID, #20 CAP Prov:CHUCKY KENNEDY 01/09/23 Metoclopramide Hcl (Reglan) 10 Mg Tab, 10 MG PO BID for 10 Days, #20 TAB Prov:SHARON PUTNAM MD 07/08/22 Hydrocodone-Acetaminophen (Hydrocodone Bitartrate/AC 5-325 mg) 1 Tab Tab, 1 TAB PO BID for 5 Days, #10 TAB Prov:SHARON PUTNAM MD 07/08/22 Naproxen (NAPROSYN TABLET) 500 Mg Tb, 1 TAB PO BID for 5 Days, #10 TAB 1 Refill Prov:SHARON PUTNAM MD 07/08/22 Cyclobenzaprine HCl (Cyclobenzaprine Hydrochlo) 5 Mg Tab, 5 MG PO TID for 5 Days, #15 TAB Prov:SHARON PUTNAM MD 07/08/22 Prednisone (Prednisone) 20 Mg Tab, 1 DOSE PO UD, #13 MG Take 60 mg by mouth daily x2 days then 40 mg daily x2 days then 20 mg daily x2 days then 10 mg daily x2 days Prov:SHEBA MCCOLLUM MD 04/03/22 Ipratropium [place] (Ipratropium [place]) 0.02 % Nika, 0.5 MG NEB Q6HR PRN, #120 DOSE Prov:SHEBA MCCOLLUM MD 04/03/22 Albuterol Sulfate (Ventolin) 2.5 Mg/0.5 Ml Nb, 2.5 MG NEB Q6HR PRN, #120 DOSE Prov:SHEBA MCCOLLUM MD 04/03/22 Prednisone (PREDNISONE) 1 Mg Tb, 4 TAB PO DAILY for 5 Days, #5 TAB 3 Refills Prov:TANIYA MOORE MD 03/19/22 Lorazepam (Ativan) 0.5 Mg Tab, 1 TAB PO BIDPRN PRN, #20 TAB Prov:SHEBA MCCOLLUM MD 09/13/21 Mirtazapine (Remeron) 15 Mg Tab, 7.5 MG PO HS PRN, #30 MG Prov:BIANKA CESAR MD 01/21/21 Escitalopram Oxalate (Lexapro) 10 Mg Tab, 2 TAB PO DAILY, #60 TAB Prov:BIANKA CESAR MD 01/21/21 Albuterol Sulfate (VENTOLIN MDI) 90 Mcg Ih, 90 MCG IN Q6HP PRN for 30 Days Prov:CHELE BORRERO MD 06/06/18 Reported Medications Quetiapine Fumerate (Seroquel) 25 Mg Tab, 25 MG PO QHS, TAB 07/20/18 Amlodipine Besylate (Amlodipine Besylate) 5 Mg Tab, 10 MG PO DAILY for 30 Days, MG 07/20/18 Lisinopril (Lisinopril) 20 Mg Tab, 20 MG PO DAILY for 30 Days, MG 07/20/18 Hydrocodone-Acetaminophen ([place] 5/325MG) 1 Tab Tb, 1 TAB PO Q6HP PRN, #20 TAB 06/06/18 Vital Signs Vital Signs Date Time Temp Pulse Resp B/P (MAP) Pulse Ox O2 Delivery O2 Flow Rate FiO2 03/01/25 12:00 67 03/01/25 10:00 14 158/65 (96) 96 03/01/25 07:27 97.9 97.9 03/01/25 04:41 Room Air* 0 21 Labs/Diagnostic Data Labs Test 03/01/25 04:46 Range/Units White Blood Count 4.0 L 4.4-10.8 10^3/uL Red Blood Count 5.23 H 4.0-5.20 10^6/uL Hemoglobin 16.4 H 12.2-16.2 g/dL Hematocrit 49.5 H 36.0-46.0 % Mean Corpuscular Volume 94.6 80.0-100.0 fL Mean Corpuscular Hemoglobin 31.3 28.0-32.0 pg Mean Corpuscular Hemoglobin Concent 33.1 32.0-36.0 g/dL Red Cell Distribution Width 14.7 H 11.8-14.3 % Platelet Count 208 140-450 10^3/uL Mean Platelet Volume 7.3 6.9-10.8 fL Neutrophils (%) (Auto) 73.0 37.0-80.0 % Lymphocytes (%) (Auto) 21.6 10.0-50.0 % Monocytes (%) (Auto) 4.5 0.0-12.0 % Eosinophils (%) (Auto) 0.4 0.0-7.0 % Basophils (%) (Auto) 0.5 0.0-2.0 % Neutrophils # (Auto) 2.9 1.6-8.6 10 ^3/uL Lymphocytes # (Auto) 0.9 0.4-5.4 10 ^3/uL Monocytes # (Auto) 0.2 0-1.3 10 ^3/uL Eosinophils # (Auto) 0 0-0.8 10 ^3/uL Basophils # (Auto) 0 0-0.2 10 ^3/uL Nucleated Red Blood Cells 0.2 % Sodium Level 142 136-145 mmol/L Potassium Level 3.7 3.5-5.1 mmol/L Chloride Level 111 H 98-107 mmol/L Carbon Dioxide Level 22 20-31 mmol/L Anion Gap 9 5-15 Blood Urea Nitrogen 8 L 9-23 mg/dL Creatinine 0.67 0.550-1.02 mg/dL Glomerular Filtration Rate Calc 93 >90 mL/min BUN/Creatinine Ratio 11.9 10.0-20.0 Serum Glucose 110 H 74-106 mg/dL Calcium Level 8.7 8.7-10.4 mg/dL Total Bilirubin 0.2 0.2-1.0 mg/dL Aspartate Amino Transferase (AST) 18 13-40 U/L Alanine Aminotransferase (ALT) 11 7-40 U/L Alkaline Phosphatase 75 46-116 U/L Total Protein 7.9 5.7-8.2 g/dL Albumin 4.6 3.2-4.8 g/dL Lipase 30 12-53 U/L ANNABELLA BAUTISTA MD March 01, 2025 13:06
[2025-03-01] MEDS: IBUPROFEN 800 MG TAB PO ONE (13:15)
[2025-03-01 15:00] VITALS: BP 132/75; PULSE 71; RESP 14; O2SAT 97
== END 2025-03-01 15:30 | disposition home or self-care (01) ==
LOC: ER 04:19 → EDBD 04:19 → ER 15:30
DX: G43.109 Migraine with aura, not intractable, without status migrainosus (principal); R11.2 Nausea with vomiting, unspecified; I10 Essential (primary) hypertension; F41.9 Anxiety disorder, unspecified; F32.A Depression, unspecified; J44.89 Other specified chronic obstructive pulmonary disease; Z79.899 Other long term (current) drug therapy; Z98.51 Tubal ligation status
CPT/HCPCS: 36415; 70450; 80053; 83690; 85025; 93005; 96361; 96374; 96375; 99285; J1885; J2765; J7030; Q0162

== ENCOUNTER 2025-10-01 17:49 | Inpatient (IN) | payer OTHER ==
[~2025-10-01] VITALS: Ht 162.6 cm; Wt 41.5 kg
--- NOTE | 2025-10-01 18:04 | ECG ---
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
[2025-10-01 20:36] LABS: Hematocrit 50.5 % (36.0-46.0); Hemoglobin 16.6 g/dL (12.2-16.2); Mean Corpuscular Hemoglobin 30.6 pg (28.0-32.0); Mean Corpuscular Volume 93.0 fL (80.0-100.0); Nucleated Red Blood Cells % 0.7 %
[2025-10-01 20:51] LABS: Alanine Aminotransferase 16 U/L (7-40); Albumin 4.6 g/dL (3.2-4.8); Alkaline Phosphatase 81 U/L (46-116); Anion Gap 10 (5-15); BUN/Creatinine Ratio 26.0 (10.0-20.0); Blood Urea Nitrogen 20 mg/dL (9-23); Calcium 9.9 mg/dL (8.7-10.4); Carbon Dioxide 25 mmol/L (20-31); Glucose 96 mg/dL (74-106); Sodium 144 mmol/L (136-145); Total Protein 8.1 g/dL (5.7-8.2)
[2025-10-01 20:56] LABS: Bilirubin, Total 0.2 mg/dL (0.2-1.0); Chloride 109 mmol/L (98-107); Potassium 3.0 mmol/L (3.5-5.1)
[2025-10-01] MEDS: ASPirin-EC 325mg tab PO ONE (21:47)
[2025-10-01] MEDS: POTASSIUM CHL 20 Meq TABLET PO ONE (23:18)
[2025-10-01] MEDS ORDERED: DOCUSATE SOD 100 MG CAP PO PRN (23:30)
[2025-10-01] MEDS ORDERED: NITROGLYCERIN 0.4 MG SL TAB SL PRN (23:30)
[2025-10-01] MEDS ORDERED: MORPHINE SULFATE INJ 2 MG/ml SYRG IV PRN (23:30)
[2025-10-02] VITALS (10 sets, daily range): BP systolic 134–146; BP diastolic 77–100; PULSE 68–86; RESP 16–75; TEMP 98.1–98.6; O2SAT 93–98
--- NOTE | 2025-10-02 00:15 | DVH ---
CHEST RADIOGRAPH Indication: elevated troponin cp Technique: Frontal and lateral view of the chest was obtained Comparison: XY CHEST PORTABLE on DOS: 11/23/23, XY CHEST PORTABLE on DOS: 10/18/23, CXRP on DOS: 08/13/22, CHEST PORTABLE on DOS: 08/13/22, CXRP on DOS: 03/30/22 FINDINGS: Lines and Tubes: None Lungs: Clear Pleura: No effusion. No pneumothorax. Cardiomediastinal contours: Unremarkable Bones: Unremarkable IMPRESSION: 1. No evidence of acute disease.
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
[2025-10-02 04:58] LABS: Hematocrit 49.4 % (36.0-46.0); Hemoglobin 16.2 g/dL (12.2-16.2); Mean Corpuscular Hemoglobin 30.8 pg (28.0-32.0); Mean Corpuscular Volume 93.8 fL (80.0-100.0); Nucleated Red Blood Cells % 0.3 %
[2025-10-02 05:01] LABS: Anion Gap 8 (5-15); Calcium 9.4 mg/dL (8.7-10.4); Carbon Dioxide 27 mmol/L (20-31)
[2025-10-02 05:03] LABS: Chloride 111 mmol/L (98-107); Potassium 3.3 mmol/L (3.5-5.1); Sodium 146 mmol/L (136-145)
[2025-10-02 05:06] LABS: BUN/Creatinine Ratio 24.4 (10.0-20.0); Blood Urea Nitrogen 19 mg/dL (9-23)
[2025-10-02 05:07] LABS: Glucose 71 mg/dL (74-106)
[2025-10-02] MEDS: ASPirin-EC 81 mg tab PO SCH (12:41)
[2025-10-02] MEDS: ENOXAPARIN SOD 40 MG/0.4 ML SYRINGE SC SCH (12:43)
[2025-10-02] MEDS: ACETAMINOPHEN 325 MG TAB PO PRN (21:39)
[2025-10-02] MEDS: ALBUTEROL SULF 2.5 MG/0.5ML(0.5%) NEB SOLN NEB PRN (21:46)
[2025-10-02] MEDS: IPRATROPIUM BROM 0.5 MG/2.5ML INH SOL NEB PRN (21:46)
[2025-10-03] VITALS (12 sets, daily range): BP systolic 122–150; BP diastolic 79–97; PULSE 67–93; RESP 16–20; TEMP 97.7–98.7; O2SAT 8–100
[2025-10-03 06:59] LABS: Hematocrit 46.2 % (36.0-46.0); Hemoglobin 15.3 g/dL (12.2-16.2); Mean Corpuscular Hemoglobin 30.7 pg (28.0-32.0); Mean Corpuscular Volume 93.0 fL (80.0-100.0); Nucleated Red Blood Cells % 0.4 %
[2025-10-03 07:17] LABS: Calcium 9.0 mg/dL (8.7-10.4); Sodium 145 mmol/L (136-145)
[2025-10-03 07:18] LABS: Anion Gap 5 (5-15); Carbon Dioxide 26 mmol/L (20-31); Chloride 114 mmol/L (98-107); Potassium 3.1 mmol/L (3.5-5.1)
[2025-10-03 07:23] LABS: BUN/Creatinine Ratio 16.7 (10.0-20.0); Blood Urea Nitrogen 11 mg/dL (9-23); Glucose 82 mg/dL (74-106)
[2025-10-03 07:24] LABS: Magnesium 2.1 mg/dL (1.6-2.6)
--- NOTE | 2025-10-03 11:44 | DVH ---
EXAM: CT HEAD WITHOUT CONTRAST INDICATION: [place], HTN TECHNIQUE: CT of the head without intravenous contrast. Radiation Dose Information: CT Dose: CTDI volume is 51.65 mGy. Dose-length product is 1017.98 mGy*cm The dose indicators for CT are the volume Computed Tomography (CT) Dose Index (CTDIvol) and the Dose Length Product (DLP), and are measured in units of mGy and mGy-cm, respectively. These indicators are not patient dose, but values generated from the CT scanner acquisition factors. The report includes radiation exposure data for exposures received during this examination. COMPARISON: CT HEAD WITHOUT CONTRAST on DOS: 03/01/25, CT HEAD WITHOUT CONTRAST on DOS: 05/09/23, CT HEAD WITHOUT CONTRAST on DOS: 04/27/23, HEAD WITHOUT CONTRAST on DOS: 07/08/22 FINDINGS: There is no evidence of acute intracranial hemorrhage, extra-axial collection, mass effect, midline shift, herniation or hydrocephalus. The ventricles, sulci and cisterns are age appropriate. The huddleston-white differentiation is intact. Patchy periventricular and subcortical white matter hypoattenuation is nonspecific but may be related to small vessel ischemic disease. The visualized paranasal sinuses and mastoid air cells are clear. The surrounding soft tissues and osseous structures are unremarkable. IMPRESSION: No acute intracranial abnormality.
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
[2025-10-03] MEDS: ALPRAZolam 0.25 MG TAB PO PRN (20:03)
[2025-10-03] MEDS: ONDANSETRON HCL 4 MG/2 ML VIAL IV PRN (22:21)
[2025-10-04] VITALS (14 sets, daily range): BP systolic 128–142; BP diastolic 83–95; PULSE 63–85; RESP 14–18; TEMP 97.5–98.3; O2SAT 94–100
--- NOTE | 2025-10-04 02:57 | DVHINCON2 ---
DATE OF CONSULTATION: 10/03/2025 CARDIOLOGY CONSULTATION REFERRING PHYSICIAN: Dr. Kirkland. CONSULTING PHYSICIAN: Ronnie Mar MD HISTORY OF PRESENT ILLNESS: The patient is a 70-year-old female with a history of hypertension, who has not been compliant with her medication. She came into the hospital. The patient notes that her blood pressure is markedly elevated, systolically in the 180s and diastolically in the 120s. The patient states that she has not been compliant with her medication. Her troponin is noted to be mildly elevated, which has been trending down. The patient denies prior history of heart disease known to her. She does give a history of anxiety and had episodes of panic attack while in the hospital. PAST MEDICAL HISTORY: Hypertension, some anxiety. MEDICATIONS: Per med rec. ALLERGIES: No known drug allergies. PHYSICAL EXAMINATION: GENERAL: Alert and awake, in no form of cardiopulmonary distress. VITAL SIGNS: Blood pressure 130/95, pulse 67 per minute, saturation 98%. HEENT: No carotid bruits. No jugular venous distention. CHEST: Bilateral air entry. CARDIOVASCULAR: Precordial and carotid pulses palpable. Normal S1, S2. Regular rate and rhythm. EXTREMITIES: No peripheral edema. DIAGNOSTIC DATA: White count 4, hemoglobin 12, platelets 212. Sodium 145, potassium 3.9, creatinine is 0.6. Troponin - first set is 48, second set 41, third set 43 and fourth set is 24. ASSESSMENT AND PLAN: * Hypertensive urgency, possibly secondary to medication noncompliance. * Elevated troponin, likely secondary to above. * * Anxiety. RECOMMENDATIONS: * Continue his amlodipine. * If blood pressure remains uncontrolled, add SABINA inhibitor. * Supplement potassium, keep potassium above 4 and magnesium above 2. * Anxiolytic medication as needed. * We will review colonoscopy. * Continue telemetry monitoring. * If echo unremarkable, no further inpatient cardiac workup indicated. Thank you for allowing me to participate in the care of this patient. MD MERLY Martinez/SARI TID: [id number] RECEIPT: [id number] MTDStephon
[2025-10-04] MEDS: ALPRAZolam 0.25 MG TAB PO ONE (03:50)
[2025-10-04 06:14] LABS: Sodium 144 mmol/L (136-145)
[2025-10-04 06:15] LABS: Anion Gap 5 (5-15); Calcium 9.3 mg/dL (8.7-10.4); Carbon Dioxide 25 mmol/L (20-31)
[2025-10-04 06:20] LABS: BUN/Creatinine Ratio 9.7 (10.0-20.0); Glucose 91 mg/dL (74-106)
[2025-10-04 06:23] LABS: Hematocrit 46.4 % (36.0-46.0); Hemoglobin 15.3 g/dL (12.2-16.2); Mean Corpuscular Hemoglobin 30.7 pg (28.0-32.0); Mean Corpuscular Volume 92.9 fL (80.0-100.0); Nucleated Red Blood Cells % 0.2 %
[2025-10-04 06:25] LABS: Blood Urea Nitrogen 7 mg/dL (9-23); Chloride 114 mmol/L (98-107); Potassium 3.4 mmol/L (3.5-5.1)
--- NOTE | 2025-10-04 10:56 | ECG ---
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
--- NOTE | 2025-10-04 14:05 | DVHSR ---
APPROVED REPORT EXAM: Two-dimensional and M-mode echocardiogram with Doppler and color Doppler. Blood Pressure: 130/79 mmHg INDICATION Elevated trop/nstemi RISK FACTORS Height: 5'4", Weight: 110 DIMENSIONS LVDd 3.8 (3.8-5.7cm) LA (2D) 4.0 (1.9-4.0cm) Aortic Root 3.2 (2.0-3.7cm) LVDs 2.2 (2.5-4.0cm) LA (MM) (1.9-4.0cm) Aortic Cusp Exc 1.6 (1.5-2.0cm) EF (%) 73.0 (55-70%) Rt. Atrium 4.6 (1.9-4.0cm) Asc. Aorta 3.7 cm IVSd 0.8 (0.7-1.1cm) RV (D) 3.2 (1.8-2.4cm) PWd 0.9 (0.7-1.1cm) Mitral Valve Mitral Mitral Stenosis E wave 0.62m/s MV Mean GR. mmHg A wave 0.74m/s MV Peak GR. mmHg E/A ratio 0.8 2D MVA cm2 DECEL Time 184ms PRESS 1/2 Time ms Aortic Valve Aortic Valve Aortic Stenosis V1 1.12m/s AO Mean GR. 4mmHg V2 1.25m/s AO Peak GR. 6mmHg LVOT Diameter 1.8 (1.8-2.4cm) Doppler RORY 2.28cm2 AI P 1/2 Time 509.66ms Pulmonic Valve V2 0.77m/s Tricuspid Valve TR Velocity 2.42m/s RVSP 34mmHg Other Information Quality : Technically Limited Rhythm : Technically limited study due to Conclusion LVEF is normal at 60-65%, mild LVH, mild diastolic dysfunction Right ventricle size and function normal. Right atrium mildly dilated Moderate tricuspid regurgitation. RVSP likely under estimated due to eccentric jet
--- NOTE | 2025-10-04 15:37 | DVHDS2 ---
Discharge Summary Date of Admission Oct 01, 2025 at 23:16 Date of Discharge: Oct 04, 2025 Labs/Diagnostic Data: Laboratory Results Test 10/04/25 12:12 10/04/25 05:40 10/03/25 06:08 10/01/25 19:25 POC Glucose 97 mg/dl (70-106) White Blood Count 4.2 10^3/uL (4.4-10.8) Red Blood Count 4.99 10^6/uL (4.0-5.20) Hemoglobin 15.3 g/dL (12.2-16.2) Hematocrit 46.4 % (36.0-46.0) Mean Corpuscular Volume 92.9 fL (80.0-100.0) Mean Corpuscular Hemoglobin 30.7 pg (28.0-32.0) Mean Corpuscular Hemoglobin Concent 33.1 g/dL (32.0-36.0) Red Cell Distribution Width 15.1 % (11.8-14.3) Platelet Count 205 10^3/uL (140-450) Mean Platelet Volume 7.5 fL (6.9-10.8) Neutrophils (%) (Auto) 50.1 % (37.0-80.0) Lymphocytes (%) (Auto) 32.7 % (10.0-50.0) Monocytes (%) (Auto) 15.2 % (0.0-12.0) Eosinophils (%) (Auto) 1.4 % (0.0-7.0) Basophils (%) (Auto) 0.6 % (0.0-2.0) Neutrophils # (Auto) 2.1 10 ^3/uL (1.6-8.6) Lymphocytes # (Auto) 1.4 10 ^3/uL (0.4-5.4) Monocytes # (Auto) 0.6 10 ^3/uL (0-1.3) Eosinophils # (Auto) 0.1 10 ^3/uL (0-0.8) Basophils # (Auto) 0 10 ^3/uL (0-0.2) Nucleated Red Blood Cells 0.2 % Sodium Level 144 mmol/L (136-145) Potassium Level 3.4 mmol/L (3.5-5.1) Chloride Level 114 mmol/L (98-107) Carbon Dioxide Level 25 mmol/L (20-31) Anion Gap 5 (5-15) Blood Urea Nitrogen 7 mg/dL (9-23) Creatinine 0.72 mg/dL (0.550-1.02) Glomerular Filtration Rate Calc 89 mL/min (>90) BUN/Creatinine Ratio 9.7 (10.0-20.0) Serum Glucose 91 mg/dL (74-106) Calcium Level 9.3 mg/dL (8.7-10.4) Magnesium Level 2.1 mg/dL (1.6-2.6) Troponin I High Sensitivity 24 ng/L (</=34) Total Bilirubin 0.2 mg/dL (0.2-1.0) Aspartate Amino Transferase (AST) 34 U/L (13-40) Alanine Aminotransferase (ALT) 16 U/L (7-40) Alkaline Phosphatase 81 U/L (46-116) Total Protein 8.1 g/dL (5.7-8.2) Albumin 4.6 g/dL (3.2-4.8) Other Laboratory Tests 10/04/25 05:40 Brief Hx & Hospital Course: 70-year-old female with a known history of hypertension, legal blindness presented to the hospital with stress-induced by family found to have hypertensive urgency and mildly elevated troponin. Patient's hypertension is controlled. Patient's mild elevation in troponin suspected secondary to demand ischemia secondary to hypertensive urgency. Patient's has some EPS case but currently cleared to be discharged. Patient will be discharged home with the home health services with a close follow up as an outpatient with the PCP. Resume home medications Condition at Discharge: Stable Final Diagnosis/Problems List 70-year-old female with a known history of hypertension, legal blindness presented to the hospital with stress-induced provide family found to have 1. Hypertensive urgency, currently resolved 2. Elevated troponin suspect demand ischemia 3. Medication noncompliance 4. Legal blindness Discharge Disposition: Home with Health Services SNF Discharge Will this Physician continue t: No Discharge Instruct/Medications Diet: Cardiac 2g Na,low cholest Activity: See Comment Activity comment: Patient's legal blindness, Follow Up/Referral: Please follow up with the PCP in one week Follow up with Dr. Medhat Delong as an outpatient with a in 1-2 weeks Medications: Resume home medications. Continued Medications: Acetaminophen (Tylenol 8 Hour Arthritis) 650 Mg Tab 650 MG PO TID, #30 TAB Acetaminophen W/ Codeine (Tylenol W/Cod #3) 1 Tab Tb 1 TAB PO QIDP, #10 TAB 0 Refills Acetaminophen (Tylenol Extra Strength) 500 Mg Tab 500 MG PO TID, #20 TAB Albuterol Sulfate (Ventolin Mdi) 90 Mcg Ih 90 MCG IN Q6HP PRN for 30 Days Albuterol Sulfate (Ventolin) 2.5 Mg/0.5 Ml Nb 2.5 MG NEB Q6HR PRN, #120 DOSE Amlodipine Besylate (Amlodipine Besylate) 5 Mg Tab 10 MG PO DAILY for 30 Days, MG Cyclobenzaprine HCl (Cyclobenzaprine Hydrochlo) 5 Mg Tab 5 MG PO TID for 5 Days, #15 TAB Dexamethasone (Decadron) 4 Mg Tb 8 MG PO DAILY for 9 Days, #18 TAB Escitalopram Oxalate (Lexapro) 10 Mg Tab 2 TAB PO DAILY, #60 TAB Hydrochlorothiazide (Hydrochlorothiazide) 25 Mg Tab 1 TAB PO DAILY for 10 Days, #10 TAB 5 Refills Hydrocodone-Acetaminophen ([place] 5/325MG) 1 Tab Tb 1 TAB PO Q6HP PRN, #20 TAB Hydrocodone-Acetaminophen (Hydrocodone Bitartrate/AC 5-325 mg) 1 Tab Tab 1 TAB PO BID for 5 Days, #10 TAB Hydrocodone-Acetaminophen (Hydrocodone Bitartrate/AC 5-325 mg) 1 Tab Tab 1 TAB PO BID, #10 TAB Hydroxyzine Pamoate (Vistaril) 25 Mg Cap 1 CAP PO BID, #20 CAP Ipratropium Golf (Ipratropium Golf) 0.02 % Nika 0.5 MG NEB Q6HR PRN, #120 DOSE Lisinopril (Lisinopril) 20 Mg Tab 20 MG PO DAILY for 30 Days, MG Lorazepam (Ativan) 0.5 Mg Tab 1 TAB PO BIDPRN PRN, #20 TAB Metoclopramide Hcl (Reglan) 10 Mg Tab 10 MG PO BID for 10 Days, #20 TAB Metoclopramide Hcl (Reglan) 10 Mg Tab 10 MG PO TID, #30 TAB Mirtazapine (Remeron) 15 Mg Tab 7.5 MG PO HS PRN, #30 MG Naproxen (Naprosyn Tablet) 500 Mg Tb 1 TAB PO BID for 5 Days, #10 TAB 1 Refill Prednisone (Prednisone) 1 Mg Tb 4 TAB PO DAILY for 5 Days, #5 TAB 3 Refills Prednisone (Prednisone) 20 Mg Tab 1 DOSE PO UD, #13 MG Take 60 mg by mouth daily x2 days then 40 mg daily x2 days then 20 mg daily x2 days then 10 mg daily x2 days Quetiapine Fumerate (Seroquel) 25 Mg Tab 25 MG PO QHS, TAB Zolmitriptan (Zomig) 5 Mg Tab 5 MG PO BID, #14 TAB Discontinued Medications: Amoxicillin & Pot Clavulanate (Amoxicillin/Potassium Cla) 875 Mg Tab 1 TAB PO BID for 7 Days, #14 TAB 0 Refills Azithromycin (Azithromycin) 250 Mg Tab 250 MG PO DAILY for 5 Days, #6 TAB Clindamycin Hcl (Clindamycin Hcl) 300 Mg Cap 1 CAP PO TID, #30 CAP Clindamycin Hcl (Clindamycin Hcl) 300 Mg Cap 1 CAP PO TID, #30 CAP Levofloxacin Hemihydrate (Levaquin 500 Mg) 500 Mg Tab 500 MG PO DAILY for 7 Days, #7 TAB Scheduled Acetaminophen (Tylenol 8 Hour Arthritis), 650 MG PO TID Acetaminophen (Tylenol Extra Strength), 500 MG PO TID Acetaminophen W/ Codeine (Tylenol W/Cod #3), 1 TAB PO QIDP Amlodipine Besylate (Amlodipine Besylate), 10 MG PO DAILY, (Reported) Amoxicillin & Pot Clavulanate (Amoxicillin/Potassium Cla), 1 TAB PO BID Azithromycin (Azithromycin), 250 MG PO DAILY Clindamycin Hcl (Clindamycin Hcl), 1 CAP PO TID Clindamycin Hcl (Clindamycin Hcl), 1 CAP PO TID Cyclobenzaprine HCl (Cyclobenzaprine Hydrochlo), 5 MG PO TID Dexamethasone (Decadron), 8 MG PO DAILY Escitalopram Oxalate (Lexapro), 2 TAB PO DAILY Hydrochlorothiazide (Hydrochlorothiazide), 1 TAB PO DAILY Hydrocodone-Acetaminophen (Hydrocodone Bitartrate/AC 5-325 mg), 1 TAB PO BID Hydrocodone-Acetaminophen (Hydrocodone Bitartrate/AC 5-325 mg), 1 TAB PO BID Hydroxyzine Pamoate (Vistaril), 1 CAP PO BID Levofloxacin Hemihydrate (Levaquin 500 Mg), 500 MG PO DAILY Lisinopril (Lisinopril), 20 MG PO DAILY, (Reported) Metoclopramide Hcl (Reglan), 10 MG PO BID Metoclopramide Hcl (Reglan), 10 MG PO TID Naproxen (Naprosyn Tablet), 1 TAB PO BID Prednisone (Prednisone), 4 TAB PO DAILY Prednisone (Prednisone), 1 DOSE PO UD Quetiapine Fumerate (Seroquel), 25 MG PO QHS, (Reported) Zolmitriptan (Zomig), 5 MG PO BID Scheduled PRN Albuterol Sulfate (Ventolin Mdi), 90 MCG IN Q6HP PRN Albuterol Sulfate (Ventolin), 2.5 MG NEB Q6HR PRN Hydrocodone-Acetaminophen ([place] 5/325MG), 1 TAB PO Q6HP PRN, (Reported) Ipratropium Golf (Ipratropium Golf), 0.5 MG NEB Q6HR PRN Lorazepam (Ativan), 1 TAB PO BIDPRN PRN Mirtazapine (Remeron), 7.5 MG PO HS PRN Discharge Statement: "Patient was advised to return to the ER or call 911 if any headaches, dizziness, shortness of breath, chest pain, abdominal pain, bleeding, fevers, or worsening of medical condition. Patient was counseled about treatment plan, medications, possible side effects, patientverbalized understanding. All questions were answered to the best of my ability. This discharge took greater then 30 minutes in planning, reviewing documentation, counseling the patient, and discussing with other team members." ASSESSMENT ASSESSMENT Assessment 70-year-old female with a known history of hypertension, legal blindness presented to the hospital with stress-induced provide family found to have 1. Hypertensive urgency, currently resolved 2. Elevated troponin suspect demand ischemia 3. Medication noncompliance 4. Legal blindness Date of Service: Oct 04, 2025 Billing Provider: ANNABELLA BAUTISTA MD Common Visit Codes: NOT BILLABLE ANNABELLA BAUTISTA MD Oct 04, 2025 15:37
[2025-10-04] MEDS: POTASSIUM EFFERVESENT TAB 25 MEQ PO ONE (16:31)
[2025-10-04] MEDS: MORPHINE SULFATE 4 MG/ML SYR/VIAL IV PRN (18:44)
[2025-10-05] VITALS (7 sets, daily range): BP systolic 124–136; BP diastolic 72–91; PULSE 58–70; RESP 12–18; TEMP 96.8–98; O2SAT 98–100
--- NOTE | 2025-10-06 12:14 | ECG ---
[facility] Test Date: 2025-10-04 Test Time: 18:32:44 Pat Name: KANDI VU Department: Respiratoy Room: 0218T B Gender: F Sectionizer: : [id number] Requested By: ANNABELLA BAUTISTA Order Number: [id number] Reading MD: Measurements Intervals [place] Rate: 94 P: 74 MO: 148 QRS: -54 QRSD: 77 T: 59 QT: 347 QTc: 434 Interpretive Statements Sinus rhythm Multiple ventricular premature complexes Probable left atrial enlargement LAD, consider left anterior fascicular block Abnormal R-wave progression, early transition Please click the below link to view image of tracing.
== END 2025-10-05 12:56 | disposition home health service (06) | DRG 305 ==
LOC: EDUNIT# 17:49 → ER 17:49 → EDBD 17:49 → OVERFLOW 23:16 → TELE-CENTR 10-02 16:25
PROVIDERS: ADMIT Internal Medicine; ATTEND Internal Medicine
DX: I16.0 Hypertensive urgency (principal); I24.89 Other forms of acute ischemic heart disease; F32.A Depression, unspecified; I10 Essential (primary) hypertension; E87.6 Hypokalemia; H54.8 Legal blindness, as defined in USA; F41.9 Anxiety disorder, unspecified; Z87.891 Personal history of nicotine dependence; Z98.51 Tubal ligation status; Z91.148 Patient's other noncompliance with medication regimen for other reason
CPT/HCPCS: 36415; 70450; 71046; 80048; 80053; 82962; 83735; 84484; 85025; 93005; 93306; 94640; 97110; 97116; 97163; 97530; 99291; G0378; J2405